=== PATIENT | female | born 1950 | race Caucasian/White ===

== ENCOUNTER → 2018-08-07 11:02 | Outpatient (CLI) | payer MEDICARE, SELFPAY ==
--- NOTE | 2018-08-07 11:12 | MRI_ITS ---
STUDY: MRI BRAIN WITH AND WITHOUT CONTRAST (ATTENTION INTERNAL AUDITORY CANALS - I.A.C.'s) REASON FOR EXAM: Female, 68 years old. Left ear hearing loss TECHNIQUE: Standardized multiplanar fat and water weighted pulse sequences were obtained. 17 ml of Dotarem contrast material was administered intravenously for the contrast portion of the examination. COMPARISON: None. FINDINGS: Normal bilateral temporal bones. Normal bilateral internal auditory canals. There is no demonstrated intracanalicular or cisternal vestibular schwannoma (acoustic neuroma). There is no enhancement of the bilateral VIIth or VIIIth cranial nerves. Normal bilateral cochlea, vestibules and semicircular canals. Normal size of the ventricles and extra-axial spaces for the patient's age. Mild periventricular white matter ischemic changes without evidence for acute infarct. Mild chronic ischemic changes within the yanick. Normal bilateral basal ganglia. Normal thalami. Normal flow voids within the major intracranial circulation suggesting patency by spin echo criteria. Normal venous enhancement. There is no enhancing intra-axial or extra-axial abnormality. There is no extra-axial fluid accumulation. Partial empty sella deformity. Normal, infundibular stalk, optic chiasm and hypothalamus. Normal tectal plate and pineal gland. Normal midbrain, and medulla. Normal cerebellum. Normal basal cisterns. No demonstrated orbital abnormality, within the constraints of a routine brain study. Normal visualized paranasal sinuses. Normal calvarium and skull base. Normal visualized soft tissue structures. Normal visualized upper cervical spine. MRI/Brain W/WO Contrast IMPRESSION: Mild periventricular white matter ischemic changes and chronic ischemic changes within the yanick without evidence for acute infarct. No evidence for acoustic or vestibular schwannoma Electronically Signed: Jonathan De Luna MD at 16:56 EDT , Service support ,
[2018-08-07 11:35] LABS: CREATININE FINGERSTICK < 0.6 mg/dL (0.55-1.02); EGFR FINGERSTICK > 60.0000 mL/min (>60)
== END ==
PROVIDERS: Referring Provider Otolaryngology; Visit Provider Otolaryngology
DX: H91.92 Unspecified hearing loss, left ear (principal)
CPT/HCPCS: 70553

== ENCOUNTER 2018-10-27 17:41 | Emergency (ER) | payer MEDICARE, SELFPAY ==
[2018-10-27 17:43] VITALS: BP 152/103; PULSE 117; RESP 18; TEMP 36.1; O2SAT 96; BMI 33.5
--- NOTE | 2018-10-27 18:53 | CT_ITS ---
STUDY: CTA CHEST REASON FOR EXAM: Female, 68 years old. Shortness of breath x2 weeks RADIATION DOSAGE (If Supplied By Facility): CTDIvol = ( 13.76 ) mGy, DLP = ( 499.99 ) mGycm TECHNIQUE: The examination was performed with the intravenous administration of 100ML ml of Isovue 370 contrast material. Post-processing of the angiographic images was performed, with multiplanar reformation and 3D reconstruction. Individualized dose optimization techniques were used for this CT. COMPARISON: December 31, 2016 FINDINGS: Normal enhancement of the main pulmonary artery and right and left pulmonary arteries. Normal enhancement of the bilateral peripheral pulmonary arteries. There is no demonstrated pulmonary embolism. Normal thoracic aorta and visualized great vessels. There is no demonstrated aortic dissection. Normal heart and pericardium. Cardiomegaly and calcific coronary artery disease. Normal mediastinum. Normal hilar regions. Normal visualized trachea and bronchi. The lungs are well expanded. Normal pulmonary parenchyma. Small bilateral pleural effusions. Bibasilar subsegmental atelectasis. Normal chest wall structures. Normal osseous structures. Normal visualized upper abdomen. CT/CTA Chest W/WO Contrast IMPRESSION: Small bilateral pleural effusions. Recommend follow-up to resolution. Electronically Signed: Coleman Hart MD at 20:31 EST , Service support ,
--- NOTE | 2018-10-27 18:53 | EKG12_ITS ---
Test Reason : SOB Blood Pressure : / mmHG Vent. Rate : 113 BPM Atrial Rate : 113 BPM P-R Int : 128 ms QRS Dur : 080 ms QT Int : 304 ms P-R-T Axes : 066 037 095 degrees QTc Int : 416 ms Sinus tachycardia Possible Left atrial enlargement Nonspecific T wave abnormality Abnormal ECG Confirmed by MAIK MESA, PAPO ([id number]), editor producer BRANDON HAM ([id number]) on 10/30/2018 1:48:37 PM Referred By: LAZARO Confirmed By:PAPO PLEITEZ MD
[2018-10-27 19:29] VITALS: PULSE 113; RESP 22; O2SAT 96
[2018-10-27 19:30] VITALS: O2SAT 96
[2018-10-27 19:30] LABS: Absolute Lymphocyte Count 2.15 X10^3/ul (0.83-4.51); Absolute Neutrophil Count 6.3 X10^3/uL (2.0-7.7); Basophil# 0.05 X10^3/uL; Basophil% 0.5 % (0-1); Eosinophil# 0.14 X10^3/uL; Eosinophils% 1.5 % (0-5); Hematocrit 38.3 % (37-47); Hemoglobin 12.1 g/dl (12.0-15.0); Lymphocyte # 2.15 X10^3/ul (4.0); Lymphocyte % 23.5 % (19-41); Mean Corp Hgb Conc 31.6 g/gl (32-36); Mean Corpuscular Hgb 28.3 pg (27.0-32.0); Mean Corpuscular Volume 89.7 fL (81-99); Mean Platelet Vol. 11.3 fl (6.2-12.0); Monocyte% 5.5 % (0-10); Neutrophil # 6.31 X10^3/uL (2.7-7.7); Neutrophil % 68.9 % (47-70); Platelet Count 283 K/mm3 (150-450); RBC Distribution Width CV 15.1 % (11.6-14.6); RBC Distribution Width SD 48.6 fl (35.1-43.9); Red Blood Count 4.27 M/mm3 (4.2-5.4); White Blood Count 9.2 K/mm3 (4.4-11.0)
[2018-10-27 19:33] LABS: POSITIVE COUNT NO; POSITIVE DIFFERENTIAL NO; POSITIVE MORPHOLOGY NO
[2018-10-27 19:41] LABS: Anion Gap 10 (5-15); BUN 19 mg/dL (7-18); BUN/Creat Ratio 29.5 RATIO (10-20); Calcium,Total 8.9 mg/dL (8.5-10.1); Chloride 111 mmol/L (98-107); Creatinine, Serum 0.64 mg/dL (0.55-1.02); EST Glomerular Filtration Rate 98 mL/min (>60); Est Glom Filt Rate - Afr Amer 119 mL/min (>60); Estimated Creatinine Clearance 43.77 ml/min; Glucose 129 mg/dL (74-106); Potassium 4.2 mmol/L (3.5-5.1); Sodium Level 143 mmol/L (136-145)
[2018-10-27 19:50] LABS: International Normalized Ratio 1.1; Prothrombin Time (Protime)PT. 13.9 SECONDS (11.7-14.9)
[2018-10-27 19:51] LABS: Partial Thromboplast Time 26.9 Seconds (24.1-36.2)
[2018-10-27 20:00] LABS: BNP,B-Type NATRIURETIC PEPTIDE 599.3 pg/mL (0-100)
[2018-10-27 21:00] VITALS: BP 142/81; PULSE 109; RESP 18; O2SAT 95
--- NOTE | 2018-10-27 21:26 | ED.VISSUMM ---
- ER Visit Summary Date of Service: 10/27/18 Chief Complaint: Shortness of breath History of Present Illness: The patient is a 68 F sent in by her PCP for CTA of the chest. Patient has been complaining of shortness of breath for the past 2 weeks. She states she initially noted symptoms after doing some different chores at home including cleaning out horse stalls. Even after changing this work she continued to have shortness of breath. She denies chest pain. She was seen at her PCPs office yesterday where her d-dimer was greater than 1000 and her BNP was 2378. Renal function was normal. Patient was told to come to the ED for a CTA as her insurance required previous authorization. Physical Examination: Blood pressure is 152/103, temperature 97, heart rate 117, respiratory rate 18, pulse ox 96% on room air. Patient sitting at bedside. She is in no acute distress. She is speaking full sentences. Heart is regular rhythm but slightly tachycardic. Lungs sounds are diminished at the bases. There is no wheezing or crackles. Abdomen is soft nontender. Lower extremity examination was no significant calf tenderness or edema. Test Results: EKG is sinus tach at 113 with no sign of acute ischemia. CBC and chemistry studies unremarkable. Coags normal. Troponin is 0.028. BNP is 600. CTA of the chest reveals small bilateral pleural effusions. Emergency Department Course and Treatment: Test results were discussed with Dr. Elizabeth, on-call for the patient's primary care physician. Patient will be given Lasix and potassium for the next 7 days. Patient is already scheduled for an echocardiogram tomorrow morning. Treatment Plan: [] Disposition: Discharge Impression: CHF This note was generated with [employer] dictation software. It may contain incorrect words, spelling, and punctuation that were not noted in review of the chart prior to signing ED Disposition - Plan for ED Patient: Disposition: Home or Assisted Living Chief Complaint: Shortness of Breath Instructions: ED CHF General Prescriptions: Furosemide [Lasix] 40 mg PO DAILY #7 tablet Potassium Chloride 20 meq PO DAILY #7 packet Referrals: Geoff Snyder MD [Primary Care Provider] - Additional Instructions: Follow-up tomorrow for echo as scheduled.
--- NOTE | 2018-10-27 21:31 | DCINST.ED_ITS ---
ED Disposition - Plan for ED Patient: Disposition: Home or Assisted Living Chief Complaint: Shortness of Breath Instructions: ED CHF General Prescriptions: Furosemide [Lasix] 40 mg PO DAILY #7 tablet Potassium Chloride 20 meq PO DAILY #7 packet Referrals: Geoff Snyder MD [Primary Care Provider] - Additional Instructions: Follow-up tomorrow for echo as scheduled.
[2018-10-27] MEDS: Furosemide 40 MG Tablet PO (21:54)
[2018-10-27 21:55] VITALS: BP 139/85; PULSE 101; RESP 22; O2SAT 96
--- OUTSIDE RECORDS SUMMARY | 2019-01-29 06:17 | XMS RPT_ITS ---
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 disease RCA mild proximal disease LVEDP: 29mmHg Impressions: No significant coronary artery disease Recommend: Continue medical management of non-ischemic cardiomyopathy Yanick Connor MD Interventional Cardiology NURSING PROG Observed: 11/18/2018 Status: COMPLETED Source: CADE 7:33 AM [facility] REPOSITORY HNO ID: [id number] Author: Ashley (Rn) RUPERTO Smalls Service: Cardiac Surgery Author Type: Registered Nurse Type: Nursing Progress Note Filed: 11/18/2018 7:34 AM Note Text: [id number] Pt arrived to [facility]. Pre-procedure and medications discussed with pt. PROGRESS Observed: 11/16/2018 Status: COMPLETED Source: CADE 9:34 AM [facility] REPOSITORY HNO ID: [id number] Author: Naty (Weapons Officer) Older Service: (none) Author Type: Nurse Practitioner Type: Progress Notes Filed: 11/16/2018 9:58 AM Note Text: Medicare Yearly Visit Medical B eligibilty date 07/11/17 Date of last exam NA PAST MEDICAL HISTORY Diagnosis Date - Abnormal Papanicolaou smear of vagina and vaginal HPV - BENIGN HYPERTENSION 01/23/2009 - Lumbago with sciatica 04/29/2011 Left - Malignant neoplasm of corpus uteri (HCC) 03/03/2015 - Malignant neoplasm of corpus uteri, except isthmus (HCC) 03/21/2015 - Osteoarthritis of hip 06/30/2014 Left. - PMH - PAST MEDICAL HISTORY OF 11/2008 calcifications in the right breast - PMH - PAST MEDICAL HISTORY OF bowel problems due to artificial sweeteners - S/P laparoscopic hysterectomy 04/10/2015 ENEDINA, BSO, pelvic lymphadenectomy - Snoring - Synovial cyst of lumbar facet joint 04/29/2011 Left - Type II or unspecified type diabetes mellitus without mention of complication, not stated as uncontrolled 03/01/2009 - Umbilical hernia without obstruction or gangrene 01/13/2018 PAST SURGICAL HISTORY Procedure Laterality Date - COLONOSCOP W/ OR W/O [facility] SPEC January 1998 Colonoscopy - COLONOSCOP W/ OR W/O [facility] SPEC Colonoscopy - LAMINECTOMY,>2 SGMT,LUMBAR - LAP HYSTERECTOMY FOR UTERUS 250G OR LESS 04/10/2015 bilateral salpingo-oophorectomy, cystoscopy, bilateral pelvic lymphadenectomy. - PAST SURGICAL HISTORY OF 2001 Right breast biopsy - REMOVAL GALLBLADDER Cholecystectomy, laparoscopic - STEREO LOC FOR CORE BRST BX LT 2 LEFT Black Cohash [Other]; Codeine; Percodan [Oxycodone-Aspirin] Medications reviewed: Yes FAMILY HISTORY Problem Relation Age of Onset - Cancer Father lung, - Diabetes Father - Diabetes Sister - Diabetes Paternal Grandfather - Emphysema Father - Arthritis Mother - Osteoporosis Mother - Hypertension Mother - Hypertension Sister - Lipids Sister SOCIAL HISTORY: Social History Marital status: Single Spouse name: Years of education: 16 Number of children: 2 Occupational History Occupation Employer Comment [employer] Social History Main Topics Smoking status: Former Smoker Packs/day: 1.00 Years: 20.00 Types: Cigarettes Quit date: 11/10/1977 Smokeless tobacco: Never Used Alcohol use: Yes Comment: rare Drug use: No Sexual activity: Not Currently control/protection: None Comment: postmenopausal Sheila denies regular aerobic exercise but is very active. She watches her diet for sodium, low fat and low cholesterol all of the time. List of current specialists seen: Senior Research Executive-Dr. Naik End of Live Planning discussed including patients advanced directive wishes: Yes I am willing to follow Sheila's advanced directives. Depression screen She in the past two weeks denies having felt down, depressed, hopeless or with little interest or pleasure in doing things. Functional Ability/Safety Screen 1. Was the patient's timed Up and Go test unsteady or longer than 30 seconds? No 2. Does the patient need help with the phone, transportation, shopping,preparing meals, housework, laundry, medications or managing money? No 3. Does your home have rugs in the hallway, lack of grab bars in the bathroom, lack of handrails on the stairs or have poor lighting? No Hearing Evaluation: hearing loss left ear, right ear normal PHYSICAL EXAM BP 120/78 Pulse 83 Temp 36.1 ?C (97 ?F) (Temporal Artery) Wt 77.6 kg (171 lb) SpO2 97% BMI 31.28 kg/m? Alert and oriented X 3: YES Body mass index is 31.28 kg/m?. ASSESSMENT/PLAN: 68 year old female The following prevention plan was discussed during the office visit and provided to the patient: - Discussed health maintenance, including regular aerobic exercise, low fat diet, and periodic exams. - Fall avoidance - Vaccines recommended: Pneumococcal. Will wait until one year from Prevnar 01/2018 - Glaucoma screening 2. Congestive heart failure, unspecified HF chronicity, unspecified heart failure type (HCC) - ICD9: 428.0, ICD10: I50.9 Recently diagnosed with CHF, cardiomyopathy of unknown etiology. Autoimmune ruled out. Waiting on viral panel. Heart cath scheduled for 11/18/18. - CARVEDILOL 3.125 MG TABLET 3. Cardiomyopathy, unspecified type (HCC) - ICD9: 425.4, ICD10: I42.9 - CARVEDILOL 3.125 MG TABLET Naty Calvin APRN.CNP CNOV Observed: 11/16/2018 Status: COMPLETED Source: CADE 9:20 AM [facility] REPOSITORY Office Visit (INTMWS) SHEILA GUTIERREZ ([id number]) 1950 F Date Time Provider Department 11/16/18 9:20 AM NATY CALVIN (BAM) INTMWS During your visit today, we recorded the following information about you: Temperature Pulse Blood pressure Weight 97 degrees 83/minute 120/78 77.6 kg Naty Calvin APRN.CNP 11/16/2018 9:58 AM Signed Medicare Yearly Visit Medical B eligibilty date 07/11/17 Date of last exam NA PAST MEDICAL HISTORY Diagnosis Date - Abnormal Papanicolaou smear of vagina and vaginal HPV - BENIGN HYPERTENSION 01/23/2009 - Lumbago with sciatica 04/29/2011 Left - Malignant neoplasm of corpus uteri (HCC) 03/03/2015 - Malignant neoplasm of corpus uteri, except isthmus (HCC) 03/21/2015 - Osteoarthritis of hip 06/30/2014 Left. - PMH - PAST MEDICAL HISTORY OF 11/2008 calcifications in the right breast - PMH - PAST MEDICAL HISTORY OF bowel problems due to artificial sweeteners - S/P laparoscopic hysterectomy 04/10/2015 ENEDINA, BSO, pelvic lymphadenectomy - Snoring - Synovial cyst of lumbar facet joint 04/29/2011 Left - Type II or unspecified type diabetes mellitus without mention of complication, not stated as uncontrolled 03/01/2009 - Umbilical hernia without obstruction or gangrene 01/13/2018 PAST SURGICAL HISTORY Procedure Laterality Date - COLONOSCOP W/ OR W/O [facility] SPEC January 1998 Colonoscopy - COLONOSCOP W/ OR W/O [facility] SPEC Colonoscopy - LAMINECTOMY,>2 SGMT,LUMBAR - LAP HYSTERECTOMY FOR UTERUS 250G OR LESS 04/10/2015 bilateral salpingo-oophorectomy, cystoscopy, bilateral pelvic lymphadenectomy. - PAST SURGICAL HISTORY OF 2001 Right breast biopsy - REMOVAL GALLBLADDER Cholecystectomy, laparoscopic - STEREO LOC FOR CORE BRST BX LT 12-27-08 LEFT Black Cohash [Other]; Codeine; Percodan [Oxycodone-Aspirin] Medications reviewed: Yes FAMILY HISTORY Problem Relation Age of Onset - Cancer Father lung, - Diabetes Father - Diabetes Sister - Diabetes Paternal Grandfather - Emphysema Father - Arthritis Mother - Osteoporosis Mother - Hypertension Mother - Hypertension Sister - Lipids Sister SOCIAL HISTORY: Social History Marital status: Single Spouse name: Years of education: 16 Number of children: 2 Occupational History Occupation Employer Comment [employer] Social History Main Topics Smoking status: Former Smoker Packs/day: 1.00 Years: 20.00 Types: Cigarettes Quit date: 11/10/1977 Smokeless tobacco: Never Used Alcohol use: Yes Comment: rare Drug use: No Sexual activity: Not Currently control/protection: None Comment: postmenopausal Sheila denies regular aerobic exercise but is very active. She watches her diet for sodium, low fat and low cholesterol all of the time. List of current specialists seen: Senior Research Executive-Dr. Naik End of Live Planning discussed including patients advanced directive wishes: Yes I am willing to follow Sheila's advanced directives. Depression screen She in the past two weeks denies having felt down, depressed, hopeless or with little interest or pleasure in doing things. Functional Ability/Safety Screen 1. Was the patient's timed Up and Go test unsteady or longer than 30 seconds? No 2. Does the patient need help with the phone, transportation, shopping,preparing meals, housework, laundry, medications or managing money? No 3. Does your home have rugs in the hallway, lack of grab bars in the bathroom, lack of handrails on the stairs or have poor lighting? No Hearing Evaluation: hearing loss left ear, right ear normal PHYSICAL EXAM BP 120/78 Pulse 83 Temp 36.1 ?C (97 ?F) (Temporal Artery) Wt 77.6 kg (171 lb) SpO2 97% BMI 31.28 kg/m? Alert and oriented X 3: YES Body mass index is 31.28 kg/m?. ASSESSMENT/PLAN: 68 year old female The following prevention plan was discussed during the office visit and provided to the patient: - Discussed health maintenance, including regular aerobic exercise, low fat diet, and periodic exams. - Fall avoidance - Vaccines recommended: Pneumococcal. Will wait until one year from Prevnar 01/2018 - Glaucoma screening 2. Congestive heart failure, unspecified HF chronicity, unspecified heart failure type (HCC) - ICD9: 428.0, ICD10: I50.9 Recently diagnosed with CHF, cardiomyopathy of unknown etiology. Autoimmune ruled out. Waiting on viral panel. Heart cath scheduled for 11/18/18. - CARVEDILOL 3.125 MG TABLET 3. Cardiomyopathy, unspecified type (HCC) - ICD9: 425.4, ICD10: I42.9 - CARVEDILOL 3.125 MG TABLET Naty Calvin APRN.ENDLESS BELT FINISHER Referring Provider: GEOFF AGURIRE [[id number]] Allergies As of Date: 11/16/2018 Noted Allergy Reaction BLACK AMADO [Other] 02/26/2006 5 - Intolerance Comments: MIGRAINE HEADACHES CODEINE 01/18/2009 PERCODAN (OXYCODONE-ASPIRIN) 01/18/2009 Date Reviewed: 11/16/2018 Reviewed by: Damaris Marte [employer] - Fully Assessed Reason for Visit: Medicare Wellness Exam [4060] Primary Visit Diagnosis:Encounter for Medicare annual wellness exam [Z00.00] Other Visit Diagnoses:Congestive heart failure, unspecified HF chronicity, unspecified heart failure type (HCC) [I50.9] Cardiomyopathy, unspecified type (HCC) [I42.9] Order(s):carvedilol (COREG) 3.125 mg tabletTake 2 tablets by mouth twice daily.Disp: Rfl: Prescriptions as of 11/16/2018 Sig: CARVEDILOL 3.125 MG TABLET Take 2 tablets by mouth twice* SPIRONOLACTONE 25 MG TABLET Take 1 tablet by mouth once d* FUROSEMIDE 40 MG TABLET Take 1 tablet by mouth once d* MAGNESIUM OXIDE 400 MG CAPSULE Take 1 capsule by mouth once * COQ10 SG 100 ORAL Take by mouth. [id number] ORAL Take by mouth. METFORMIN 1,000 MG TABLET Take 1 tablet by mouth twice * LISINOPRIL 5 MG TABLET Take 1 tablet by mouth once d* ATORVASTATIN 10 MG TABLET Take 1 tablet by mouth once d* BLOOD SUGAR DIAGNOSTIC STRIPS Test blood sugar(s) 2 times d* TRAMADOL 50 MG TABLET Take 1 tablet by mouth twice * CYCLOBENZAPRINE 10 MG TABLET Take 1 tablet by mouth twice * GABAPENTIN 300 MG CAPSULE Take 1 capsule by mouth four * BLOOD SUGAR DIAGNOSTIC STRIPS Testing twice daily for uncon* LANCETS Test blood sugar(s) twice emerald* ECOTRIN LOW STRENGTH 81 MG TA* Take one(1) tablet daily. Problem List As Of Date 11/16/2018 Noted Resolved Abnormal mammogram, unspecified [R92.8] INVALID FOR*06/12/2011 BENIGN HYPERTENSION [I10] INVALID FOR* Diabetes mellitus type 2, controlled, without c*INVALID FOR* Lumbago with sciatica [M54.40] INVALID FOR* S/P laminectomy [Z98.890] INVALID FOR* Osteoarthritis of hip [M16.9] INVALID FOR* More... Hyperlipidemia [E78.5] INVALID FOR* Malignant neoplasm of corpus uteri, except isth*INVALID FOR* Umbilical hernia without obstruction or gangren*INVALID FOR* Sensorineural hearing loss (SNHL) of left ear [*INVALID FOR* Cardiomyopathy (HCC) [I42.9] INVALID FOR* Acute systolic congestive heart failure (HCC) [*INVALID FOR* Prescriptions ordered this encounter Disp Refills Start End CARVEDILOL 3.125 MG TABLET 11/16/2018 Class: Med Update Route: ORAL Sig: Take 2 tablets by mouth twice daily. Cosign accepted by NATY CALVIN CNP[[id number]] on 11/16/2018 9:26 AM Medications Discontinued During This Encounter carvedilol (COREG) 3.125 mg tablet 11/01/2018 11/16/2018 Class: Med Update Route: ORAL Sig: Take 1 tablet by mouth twice daily. Disc: Reason for discontinue is not on file. Encounter Status:Closed by NATY CALVIN CNP on 11/16/18 HOSP Observed: 11/13/2018 Status: COMPLETED Source: CADE 12:00 AM [facility] REPOSITORY Patient:Sheila Gutierrez MRN: <[id number]> Height:5' 2(1.575 m) Weight:171 lb (77.565 kg) Outpatient Medications as of 11/18/18: carvedilol (COREG) 3.125 mg tablet spironolactone (ALDACTONE) 25 mg tablet furosemide (LASIX) 40 mg tablet magnesium oxide 400 mg cap ubidecarenone/vitamin E mixed (COQ10 SG 100 ORAL) calcium carbonate/vitamin D2 ([id number] ORAL) metFORMIN (GLUCOPHAGE) 1,000 mg tablet lisinopril (ZESTRIL, PRINIVIL) 5 mg tablet atorvastatin (LIPITOR) 10 mg tablet blood sugar diagnostic (FREESTYLE LITE STRIPS) test strip traMADol (ULTRAM) 50 mg tablet cyclobenzaprine (FLEXERIL) 10 mg tablet gabapentin (NEURONTIN) 300 mg capsule blood sugar diagnostic (BLOOD GLUCOSE TEST) test strip Lancets lancets aspirin(ECOTRIN LOW STRENGTH 81 MG TAB) Admission/Clinic Administered Medications as of 11/18/18: heparin 1,000 Units in D5W 250 mL heparin 3,000 Units in NaCl 0.9% 500 mL irrigation NaCl 0.9% iv infusion Problem List: Essential hypertension, benign [I10] Diabetes mellitus type 2, controlled, without complications (HCC) [E11.9] Lumbago with sciatica [M54.40] S/P laminectomy [Z98.890] Osteoarthritis of hip [M16.9] Hyperlipidemia [E78.5] Malignant neoplasm of corpus uteri, except isthmus (HCC) [C54.9] Umbilical hernia without obstruction or gangrene [K42.9] Sensorineural hearing loss (SNHL) of left ear [H90.5] Cardiomyopathy (HCC) [I42.9] Acute systolic congestive heart failure (HCC) [I50.21] Allergies: BLACK COHASH [Other] Codeine Percodan [Oxycodone-Aspirin] Date Verified: 11/18/18 Lab Values Lab Value Units Date High Low POTA* 4.9 mmol/L 11/12/2018 5.1 3.7 BRYCE* 41.2 % 11/12/2018 46.0 36.0 Progress Notes ([facility]): Giovani Ivy RN 11/16/2018 8:56 AM Signed Pt called, verified by name and birthdate. Pt asked if she could send list of vitals in via my chart. Informed her she could or I could put them in, pt states it will be easier for her to send my chart message so she can attach messages. Giovani Ivy RN Progress Notes ([facility]): Naty Older, BARBERING TEACHER.ENDLESS BELT FINISHER 11/16/2018 9:58 AM Signed Medicare Yearly Visit Medical B eligibilty date 07/11/17 Date of last exam NA PAST MEDICAL HISTORY Diagnosis Date - Abnormal Papanicolaou smear of vagina and vaginal HPV - BENIGN HYPERTENSION 01/23/2009 - Lumbago with sciatica 04/29/2011 Left - Malignant neoplasm of corpus uteri (HCC) 03/03/2015 - Malignant neoplasm of corpus uteri, except isthmus (HCC) 03/21/2015 - Osteoarthritis of hip 06/30/2014 Left. - PMH - PAST MEDICAL HISTORY OF 11/2008 calcifications in the right breast - PMH - PAST MEDICAL HISTORY OF bowel problems due to artificial sweeteners - S/P laparoscopic hysterectomy 04/10/2015 ENEDINA, BSO, pelvic lymphadenectomy - Snoring - Synovial cyst of lumbar facet joint 04/29/2011 Left - Type II or unspecified type diabetes mellitus without mention of complication, not stated as uncontrolled 03/01/2009 - Umbilical hernia without obstruction or gangrene 01/13/2018 PAST SURGICAL HISTORY Procedure Laterality Date - COLONOSCOP W/ OR W/O [facility] SPEC January 1998 Colonoscopy - COLONOSCOP W/ OR W/O [facility] SPEC Colonoscopy - LAMINECTOMY,>2 SGMT,LUMBAR - LAP HYSTERECTOMY FOR UTERUS 250G OR LESS 04/10/2015 bilateral salpingo-oophorectomy, cystoscopy, bilateral pelvic lymphadenectomy. - PAST SURGICAL HISTORY OF 2001 Right breast biopsy - REMOVAL GALLBLADDER Cholecystectomy, laparoscopic - STEREO LOC FOR CORE BRST BX LT 12-27-08 LEFT Black Cohash [Other]; Codeine; Percodan [Oxycodone-Aspirin] Medications reviewed: Yes FAMILY HISTORY Problem Relation Age of Onset - Cancer Father lung, - Diabetes Father - Diabetes Sister - Diabetes Paternal Grandfather - Emphysema Father - Arthritis Mother - Osteoporosis Mother - Hypertension Mother - Hypertension Sister - Lipids Sister SOCIAL HISTORY: Social History Marital status: Single Spouse name: Years of education: 16 Number of children: 2 Occupational History Occupation Employer Comment [employer] Social History Main Topics Smoking status: Former Smoker Packs/day: 1.00 Years: 20.00 Types: Cigarettes Quit date: 11/10/1977 Smokeless tobacco: Never Used Alcohol use: Yes Comment: rare Drug use: No Sexual activity: Not Currently control/protection: None Comment: postmenopausal Sheila denies regular aerobic exercise but is very active. She watches her diet for sodium, low fat and low cholesterol all of the time. List of current specialists seen: Senior Research Executive-Dr. Naik End of Live Planning discussed including patients advanced directive wishes: Yes I am willing to follow Sheila's advanced directives. Depression screen She in the past two weeks denies having felt down, depressed, hopeless or with little interest or pleasure in doing things. Functional Ability/Safety Screen 1. Was the patient's timed Up and Go test unsteady or longer than 30 seconds? No 2. Does the patient need help with the phone, transportation, shopping,preparing meals, housework, laundry, medications or managing money? No 3. Does your home have rugs in the hallway, lack of grab bars in the bathroom, lack of handrails on the stairs or have poor lighting? No Hearing Evaluation: hearing loss left ear, right ear normal PHYSICAL EXAM BP 120/78 Pulse 83 Temp 36.1 ?C (97 ?F) (Temporal Artery) Wt 77.6 kg (171 lb) SpO2 97% BMI 31.28 kg/m? Alert and oriented X 3: YES Body mass index is 31.28 kg/m?. ASSESSMENT/PLAN: 68 year old female The following prevention plan was discussed during the office visit and provided to the patient: - Discussed health maintenance, including regular aerobic exercise, low fat diet, and periodic exams. - Fall avoidance - Vaccines recommended: Pneumococcal. Will wait until one year from Prevnar 01/2018 - Glaucoma screening 2. Congestive heart failure, unspecified HF chronicity, unspecified heart failure type (HCC) - ICD9: 428.0, ICD10: I50.9 Recently diagnosed with CHF, cardiomyopathy of unknown etiology. Autoimmune ruled out. Waiting on viral panel. Heart cath scheduled for 11/18/18. - CARVEDILOL 3.125 MG TABLET 3. Cardiomyopathy, unspecified type (HCC) - ICD9: 425.4, ICD10: I42.9 - CARVEDILOL 3.125 MG TABLET Naty Older, BARBERING TEACHER.ENDLESS BELT FINISHER CBC Collected: 11/12/2018 Status: F Source: CADE 4:17 PM [facility] REPOSITORY TYPE CODE TESTS RESULT OUT OF REFERENCE UNITS RANGE LAB WBC 3.70-11.00 k/uL WBC 9.26 LAB RBC 3.90-5.20 m/uL RBC 4.57 LAB HGB 11.5-15.5 g/dL Hemoglobin 13.0 LAB HCT 36.0-46.0 % Hematocrit 41.2 LAB MCV 80.0-100.0 fL MCV 90.2 LAB MCH 26.0-34.0 pG MCH 28.4 LAB MCHC 30.5-36.0 g/dL MCHC 31.6 LAB RDWCV 11.5-15.0 % RDW-CV 13.7 LAB PLTCT 150-400 k/uL Platelet Count 241 LAB MPV 9.0-12.7 fL MPV 12.6 LAB ABSNUC <0.01 k/uL Absolute nRBC <0.01 Performed By: #### CBC #### [facility] [address] [address] MAGNESIUM Collected: 11/12/2018 Status: F Source: CADE 4:16 PM [facility] REPOSITORY TYPE CODE TESTS RESULT OUT OF REFERENCE UNITS RANGE LAB MG 1.7-2.3 mg/dL Low Magnesium 1.4 BASIC METABOLIC PANL Collected: 11/12/2018 Status: F Source: CADE 4:16 PM [facility] REPOSITORY TYPE CODE TESTS RESULT OUT OF REFERENCE UNITS RANGE LAB GLU 74-99 mg/dL Glucose High 146 LAB BUN 7-21 mg/dL BUN High 27 LAB CRET 0.58-0.96 mg/dL Creatinine 0.83 LAB NA 136-144 mmol/L Sodium 137 LAB K 3.7-5.1 mmol/L Potassium 4.9 LAB CL 97-105 mmol/L Chloride 98 LAB CO2 22-30 mmol/L CO2 28 LAB AGAP mmol/L Anion Gap 11 LAB CA 8.5-10.2 mg/dL Calcium, High Total 10.3 LAB GFRAA eGFR- >60 Amer. LAB GFRNAA . eGFR-All Other Races >60 Result Comment: eGFR (Estimated GFR) Units of measure: mL/min/1.73 meters squared eGFR is derived from the reexpressed MDRD Study equation using the following parameters: serum creatinine, age, gender and race. The creatinine assay has been calibrated to be traceable to IDMS. An eGFR <60 mL/min/1.73m2 for >3 months is consistent with chronic kidney disease. Refer to KDOQI guidelines for clinical interpretation. In patients with unstable renal function, e.g. those with acute kidney injury, the eGFR may not accurately reflect actual GFR. PROTIME Collected: 11/12/2018 Status: F Source: CADE 4:16 PM [facility] REPOSITORY TYPE CODE TESTS RESULT OUT OF RANGE REFERENCE UNITS LAB PSEC 9.7-13.0 sec PT Sec 10.6 LAB INR 0.9-1.3 PT INR 1.0 Result Comment: Vitamin K Antagonist (VKA) Therapeutic Range: INR 2 to 3 (Target INR of 2.5) Note: For patients treated with VKA drugs, such as warfarin, the [place] [employer] 2012 Guideline recommends a therapeutic INR range of 2 to 3 (target INR of 2.5). This recommendation includes high-risk patients with antiphospholipid syndrome with previous arterial or venous thromboembolism, current-generation mechanical or bioprosthetic aortic heart valve replacement. Note: Patients with mechanical aortic valve replacement and additional risk factors for thromboembolic events (atrial fibrillation, previous thromboembolism, LV dysfunction, hypercoagulable conditions) or an older generation mechanical AVR (i.e., ball in-Cage) or any mechanical MVR should have a INR therapeutic range of 2.5 to 3.5 (target INR of 3). Benjy GH, et al. Chest 2012, 141:7S-47S Todd RA, et al. JAC 2017, 70: 252-289 Performed By: #### PT, ANAIFS #### [facility] [address] [place], [place] [address] #### COXBAB #### [facility] [address] [place] [address] [phone] JUDI BY IFA Collected: 11/12/2018 Status: F Source: CADE 4:16 PM [facility] REPOSITORY TYPE CODE TESTS RESULT OUT OF REFERENCE UNITS RANGE LAB ANASC Negative JUDI Negative Result Comment: Normal range : negative at <1:80 serum dilution. Approximately 6% of patients with connective tissue diseases with low positive EIA values are negative by IFA. Recommend follow-up with specific antinuclear antibodies if clinically indicated. LAB MILADY Negative Negative JUDI Titer Result Comment: Normal range : negative at <1:80 serum dilution. LAB ANAP JUDI Not applicable Pattern for negative result. Performed By: #### PT, ANAIFS #### [facility] [address] [address] #### COXBAB #### [address] [address] [phone] COXSACKIE B VIRAL AB Collected: 11/12/2018 Status: F Source: CADE 4:16 PM [facility] REPOSITORY TYPE CODE TESTS RESULT OUT OF RANGE REFERENCE UNITS LAB COXB1 <1:10 Coxsackie B 1:10 Type 1 LAB COXB2 <1:10 Coxsackie B <1:10 Type 2 LAB COXB3 <1:10 Cox[place]ackie B <1:10 Type 3 LAB COXB4 <1:10 High Coxsackie B >=1:640 Type 4 LAB COXB5 <1:10 Abnormal Alert Coxsackie B 1:320 Type 5 LAB COXB6 <1:10 Coxsackie B <1:10 Type 6 Result Comment: (NOTE) INTERPRETIVE INFORMATION: Coxsackie B Virus Single positive antibody titers of greater than or equal to 1:80 may indicate past or current infection. Sero- conversion or an increase in titers between acute and convalescent sera of at least fourfold is considered strong evidence of current or recent infection. Performed by [facility], [address] [place] [id number] [email or web address], Jayden Feliz MD, Lab. Director Performed By: #### PT, ANAIFS #### [facility] [address], [place] [address] #### COXBAB #### [employer] [address] [address] [id number] [phone] IRON AND TIBC Collected: 11/12/2018 Status: F Source: CADE 4:16 PM [facility] REPOSITORY TYPE CODE TESTS RESULT OUT OF REFERENCE UNITS RANGE LAB IRN 41-186 ug/dL Iron 57 LAB TIBC 232-386 ug/dL TIBC High 407 LAB SAT 15-57 % Low Transferrin Saturatn 14 Performed By: #### IRON #### [facility] [address] [place], [place] [address] PROGRESS Observed: 11/12/2018 Status: COMPLETED Source: CADE 3:53 PM [facility] REPOSITORY HNO ID: [id number] Author: Eladio Naik Service: (none) Author Type: Physician Type: Progress Notes Filed: 11/15/2018 1:50 PM Note Text: PERTINENT CARDIAC HISTORY Cardiomyopathy HL HTN ADHERENCE TO GUIDELINES ANTHONY-I or ARB for HF with prior LVEF<40 (NQF 0081) - met ASA or Plavix for ASHD (NQF 0067) - N/A Beta cassy for ASHD with prior NM or prior LVEF<40 (NQF 0070) - N/A Beta cassy for HF with prior LVEF<40 (NQF 0083) - met ANTHONY-I or ARB for ASHD with DM or prior LVEF<40 (NQF 0066) - met Statin therapy for ASHD or FHL or DM - met BMI documented and plan if >25 (NQF 0421) - lifestyle recommendation form Tobacco use screening and referral (NQF 0028) - lifestyle recommendation form Recommendation for whole food, plant based diet - lifestyle recommendation form CLINICAL IMPRESSION/PLAN: Sheila Gutierrez has a cardiomyopathy of uncertain etiology and duration. It is likely post viral and related to an event within the last several months. She is on small dose of carvedilol and ANTHONY inhibitor. Up titration would be helpful. We will check basic profile to see if there is any evidence of prerenal azotemia. Aldactone can be added. I recommend angiography to evaluate for underlying ischemic heart disease, which would be potentially treatable. She will also have JUDI, iron/TIBC and coxsackie viral titers to attempt to identify an etiology. After optimization of volume, I recommend pushing her beta cassy to tolerance. She will begin making that change attendant the weekend and I've asked her to contact me in the next several days with an update. Should there be no improvement in LV function after aggressive therapy for a few months, she may be a candidate for ICD for primary prophylaxis. I will see her following her evaluation. Thank you for asking me to see and make recommendations on Sheila Gutierrez. This report is available to you in the shared medical record. Written and verbal health teaching given to patient, patient verbalizes understanding and agrees with treatment plan. DIAGNOSIS FOR VISIT: Cardiomyopathy, likely nonischemic Hypertension HISTORY OF PRESENT ILLNESS Sheila Gutierrez is a 68-year-old woman without previous cardiac history, who is seen in consultation at the request of Dr. Aguirre. She's also been recently evaluated by [facility], but desires follow up in [facility]. She recently presented with decompensated systolic LV dysfunction. She noted while cleaning a barn that she was much more short of breath than usual. She developed tachypnea and elevated heart rate. She noted postural dyspnea. She's had minimal edema. She was placed on diuretics and low-dose beta cassy. She has been on chronic ANTHONY inhibitor. She lost about 13 pounds of fluid since initiating Lasix. She reports that her breathing has returned to baseline, but she notes a significant decrease in exercise tolerance. There is no previous history of cardiomyopathy. She had a sudden loss of auditory acuity several months ago, which was attributed to a viral event. She underwent brain imaging and there was no evidence of stroke. She had previous radiation therapy for uterine cancer but no known cardiotoxic chemotherapy. She's had no comfort. She denies TIAs, amaurosis, claudication, palpitations, syncope or near syncope. Risk factors for coronary disease include diabetes and hypertension. She has been very active, doing a lot of physical labor. 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 ALLERGIES: ALLERGIES Allergen Reactions - Black Cohash [Other] Intolerance MIGRAINE HEADACHES - Codeine - Percodan [Oxycodone* CURRENT OUTPATIENT MEDICATIONS: ubidecarenone/vitamin E mixed (COQ10 SG 100 ORAL) Take by mouth. calcium carbonate/vitamin D2 ([id number]-758-V ORAL) Take by mouth. furosemide (LASIX) 40 mg tablet Take 1 tablet by mouth twice daily. carvedilol (COREG) 3.125 mg tablet Take 1 tablet by mouth twice daily. potassium chloride ER (K-DUR, KLOR-CON) 20 mEq tablet Take 1 tablet by mouth once daily. lisinopril (ZESTRIL, PRINIVIL) 5 mg tablet Take 1 tablet by mouth once daily. atorvastatin (LIPITOR) 10 mg tablet Take 1 tablet by mouth once daily. blood sugar diagnostic (FREESTYLE LITE STRIPS) test strip Test blood sugar(s) 2 times daily. Dx: Type 2 DM - Controlled E11.9 Insulin: No traMADol (ULTRAM) 50 mg tablet Take 1 tablet by mouth twice daily as needed for Pain. Dr. Raines gabapentin (NEURONTIN) 300 mg capsule Take 1 capsule by mouth four times daily. blood sugar diagnostic (BLOOD GLUCOSE TEST) test strip Testing twice daily for uncontrolled blood sugars 250.00 non insulin dependent.Use as instructed Lancets lancets Test blood sugar(s) twice times daily. Dx: 250.00. Insulin: No aspirin(ECOTRIN LOW STRENGTH 81 MG TAB) Take one(1) tablet daily. metFORMIN (GLUCOPHAGE) 1,000 mg tablet Take 1 tablet by mouth twice daily with meals. cyclobenzaprine (FLEXERIL) 10 mg tablet Take 1 tablet by mouth twice daily as needed for Muscle Spasm. Dr. Raines PAST MEDICAL HISTORY Diagnosis Date - Abnormal Papanicolaou smear of vagina and vaginal HPV - BENIGN HYPERTENSION 01/23/2009 - Lumbago with sciatica 04/29/2011 Left - Malignant neoplasm of corpus uteri (HCC) 03/03/2015 - Malignant neoplasm of corpus uteri, except isthmus (HCC) 03/21/2015 - Osteoarthritis of hip 06/30/2014 Left. - PMH - PAST MEDICAL HISTORY OF 11/2008 calcifications in the right breast - PMH - PAST MEDICAL HISTORY OF bowel problems due to artificial sweeteners - S/P laparoscopic hysterectomy 04/10/2015 ENEDINA, BSO, pelvic lymphadenectomy - Snoring - Synovial cyst of lumbar facet joint 04/29/2011 Left - Type II or unspecified type diabetes mellitus without mention of complication, not stated as uncontrolled 03/01/2009 - Umbilical hernia without obstruction or gangrene 01/13/2018 PAST SURGICAL HISTORY Procedure Laterality Date - COLONOSCOP W/ OR W/O [facility] SPEC January 1998 Colonoscopy - COLONOSCOP W/ OR W/O [facility] SPEC Colonoscopy - LAMINECTOMY,>2 SGMT,LUMBAR - LAP HYSTERECTOMY FOR UTERUS 250G OR LESS 04/10/2015 bilateral salpingo-oophorectomy, cystoscopy, bilateral pelvic lymphadenectomy. - PAST SURGICAL HISTORY OF 2001 Right breast biopsy - REMOVAL GALLBLADDER Cholecystectomy, laparoscopic - STEREO LOC FOR CORE BRST BX LT 12-27-08 LEFT FAMILY HISTORY Problem Relation Age of Onset - Cancer Father lung, - Diabetes Father - Diabetes Sister - Diabetes Paternal Grandfather - Emphysema Father - Arthritis Mother - Osteoporosis Mother - Hypertension Mother - Hypertension Sister - Lipids Sister Social History Marital status: Single Spouse name: Years of education: 16 Number of children: 2 Occupational History Occupation Employer Comment [employer] Social History Main Topics Smoking status: Former Smoker Packs/day: 1.00 Years: 20.00 Types: Cigarettes Quit date: 11/10/1977 Smokeless tobacco: Never Used Alcohol use: Yes Comment: rare Drug use: No Sexual activity: Not Currently control/protection: None Comment: postmenopausal REVIEW OF SYSTEMS: General: No chills, fever, weight loss, night sweats. SHEENT: No change in vision or auditory acuity. Respiratory: No productive cough. Cardiac: As noted above. GI: No melena. : No dysuria. Musculoskeletal: No myalgias. Neurologic: No strokes. Psychiatric: No depression. Endocrine: Positive for diabetes. Hematologic: No anemia. PHYSICAL EXAMINATION: S/he is alert and in no distress VITAL SIGNS: BP 109/73 Pulse 96 Ht 5' 2 (1.58m) Wt 173 lb 9.6 oz (78.7kg) BMI 31.74 kg/(m2). SHEENT: Skin is warm and dry. Pupils are round and reactive. Retinal vessels are grossly unremarkable. No xanthelasmas appreciated. Pharynx is benign. There is no oral cyanosis. Neck: supple. No adenopathy or thyroid enlargement. Chest: Clear to auscultation. Trachea is midline. Air entry is equal. There is no chest wall tenderness. Cardiac: Regular rhythm. S1 and S2 are normal. PMI is sustained. There is a soft tricuspid insufficiency murmur. No click is heard. Carotids are brisk without bruits. JVP is less than 10 cm. Abdomen: Soft and nontender. There are no pulsatile masses or bruits. No liver enlargement. Bowel sounds are active. : Deferred. Extremities: No edema. Pulses are intact and symmetrical. No clubbing or cyanosis. No femoral bruits. Neurologic: Grossly normal motor and sensory. S/he is alert and oriented x4. Musculoskeletal: No joint deformities. Recent echocardiogram was personally reviewed. Ejection fraction is 15-20%. MRI of the brain stem showed no mass lesions or evidence of stroke. Recent chest CTA showed no evidence of pulmonary embolism. There were small bilateral effusions. Troponin was fairly detected. EKG shows sinus rhythm with minor diffuse repolarization changes, which are new. Recent labs were reviewed. Renal function is normal. Electronically Signed: Eladio Naik MD November 12, 2018 3:53 PM CC: MD ROSAURA KennedyOV Observed: 11/12/2018 Status: COMPLETED Source: CADE 2:45 PM [facility] REPOSITORY Office Visit (CAWSTR) SHEILA GUTIERREZ ([id number]) 1950 F Date Time Provider Department 11/12/18 2:45 PM ELADIO NAIK CAWSTR During your visit today, we recorded the following information about you: Pulse Blood pressure Weight Height 96/minute 109/73 78.7 kg 1.575 m Eladio Naik MD 11/15/2018 1:50 PM Signed PERTINENT CARDIAC HISTORY Cardiomyopathy HL HTN ADHERENCE TO GUIDELINES ANTHONY-I or ARB for HF with prior LVEF<40 (NQF 0081) - met ASA or Plavix for ASHD (NQF 0067) - N/A Beta cassy for ASHD with prior NM or prior LVEF<40 (NQF 0070) - N/A Beta cassy for HF with prior LVEF<40 (NQF 0083) - met ANTHONY-I or ARB for ASHD with DM or prior LVEF<40 (NQF 0066) - met Statin therapy for ASHD or FHL or DM - met BMI documented and plan if >25 (NQF 0421) - lifestyle recommendation form Tobacco use screening and referral (NQF 0028) - lifestyle recommendation form Recommendation for whole food, plant based diet - lifestyle recommendation form CLINICAL IMPRESSION/PLAN: Sheila Gutierrez has a cardiomyopathy of uncertain etiology and duration. It is likely post viral and related to an event within the last several months. She is on small dose of carvedilol and ANTHONY inhibitor. Up titration would be helpful. We will check basic profile to see if there is any evidence of prerenal azotemia. Aldactone can be added. I recommend angiography to evaluate for underlying ischemic heart disease, which would be potentially treatable. She will also have JUDI, iron/TIBC and coxsackie viral titers to attempt to identify an etiology. After optimization of volume, I recommend pushing her beta cassy to tolerance. She will begin making that change attendant the weekend and I've asked her to contact me in the next several days with an update. Should there be no improvement in LV function after aggressive therapy for a few months, she may be a candidate for ICD for primary prophylaxis. I will see her following her evaluation. Thank you for asking me to see and make recommendations on Sheila Gutierrez. This report is available to you in the shared medical record. Written and verbal health teaching given to patient, patient verbalizes understanding and agrees with treatment plan. DIAGNOSIS FOR VISIT: Cardiomyopathy, likely nonischemic Hypertension HISTORY OF PRESENT ILLNESS Sheila Gutierrez is a 68-year-old woman without previous cardiac history, who is seen in consultation at the request of Dr. Aguirre. She's also been recently evaluated by [facility], but desires follow up in [facility]. She recently presented with decompensated systolic LV dysfunction. She noted while cleaning a barn that she was much more short of breath than usual. She developed tachypnea and elevated heart rate. She noted postural dyspnea. She's had minimal edema. She was placed on diuretics and low-dose beta cassy. She has been on chronic ANTHONY inhibitor. She lost about 13 pounds of fluid since initiating Lasix. She reports that her breathing has returned to baseline, but she notes a significant decrease in exercise tolerance. There is no previous history of cardiomyopathy. She had a sudden loss of auditory acuity several months ago, which was attributed to a viral event. She underwent brain imaging and there was no evidence of stroke. She had previous radiation therapy for uterine cancer but no known cardiotoxic chemotherapy. She's had no comfort. She denies TIAs, amaurosis, claudication, palpitations, syncope or near syncope. Risk factors for coronary disease include diabetes and hypertension. She has been very active, doing a lot of physical labor. 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 ALLERGIES: ALLERGIES Allergen Reactions - Black Cohash [Other] Intolerance MIGRAINE HEADACHES - Codeine - Percodan [Oxycodone* CURRENT OUTPATIENT MEDICATIONS: ubidecarenone/vitamin E mixed (COQ10 SG 100 ORAL) Take by mouth. calcium carbonate/vitamin D2 ([id number]-389-Q ORAL) Take by mouth. furosemide (LASIX) 40 mg tablet Take 1 tablet by mouth twice daily. carvedilol (COREG) 3.125 mg tablet Take 1 tablet by mouth twice daily. potassium chloride ER (K-DUR, KLOR-CON) 20 mEq tablet Take 1 tablet by mouth once daily. lisinopril (ZESTRIL, PRINIVIL) 5 mg tablet Take 1 tablet by mouth once daily. atorvastatin (LIPITOR) 10 mg tablet Take 1 tablet by mouth once daily. blood sugar diagnostic (FREESTYLE LITE STRIPS) test strip Test blood sugar(s) 2 times daily. Dx: Type 2 DM - Controlled E11.9 Insulin: No traMADol (ULTRAM) 50 mg tablet Take 1 tablet by mouth twice daily as needed for Pain. Dr. Raines gabapentin (NEURONTIN) 300 mg capsule Take 1 capsule by mouth four times daily. blood sugar diagnostic (BLOOD GLUCOSE TEST) test strip Testing twice daily for uncontrolled blood sugars 250.00 non insulin dependent.Use as instructed Lancets lancets Test blood sugar(s) twice times daily. Dx: 250.00. Insulin: No aspirin(ECOTRIN LOW STRENGTH 81 MG TAB) Take one(1) tablet daily. metFORMIN (GLUCOPHAGE) 1,000 mg tablet Take 1 tablet by mouth twice daily with meals. cyclobenzaprine (FLEXERIL) 10 mg tablet Take 1 tablet by mouth twice daily as needed for Muscle Spasm. Dr. Raines PAST MEDICAL HISTORY Diagnosis Date - Abnormal Papanicolaou smear of vagina and vaginal HPV - BENIGN HYPERTENSION 01/23/2009 - Lumbago with sciatica 04/29/2011 Left - Malignant neoplasm of corpus uteri (HCC) 03/03/2015 - Malignant neoplasm of corpus uteri, except isthmus (HCC) 03/21/2015 - Osteoarthritis of hip 06/30/2014 Left. - PMH - PAST MEDICAL HISTORY OF 11/2008 calcifications in the right breast - PMH - PAST MEDICAL HISTORY OF bowel problems due to artificial sweeteners - S/P laparoscopic hysterectomy 04/10/2015 ENEDINA, BSO, pelvic lymphadenectomy - Snoring - Synovial cyst of lumbar facet joint 04/29/2011 Left - Type II or unspecified type diabetes mellitus without mention of complication, not stated as uncontrolled 03/01/2009 - Umbilical hernia without obstruction or gangrene 01/13/2018 PAST SURGICAL HISTORY Procedure Laterality Date - COLONOSCOP W/ OR W/O [facility] SPEC January 1998 Colonoscopy - COLONOSCOP W/ OR W/O [facility] SPEC Colonoscopy - LAMINECTOMY,>2 SGMT,LUMBAR - LAP HYSTERECTOMY FOR UTERUS 250G OR LESS 04/10/2015 bilateral salpingo-oophorectomy, cystoscopy, bilateral pelvic lymphadenectomy. - PAST SURGICAL HISTORY OF 2001 Right breast biopsy - REMOVAL GALLBLADDER Cholecystectomy, laparoscopic - STEREO LOC FOR CORE BRST BX LT 12-27-08 LEFT FAMILY HISTORY Problem Relation Age of Onset - Cancer Father lung, - Diabetes Father - Diabetes Sister - Diabetes Paternal Grandfather - Emphysema Father - Arthritis Mother - Osteoporosis Mother - Hypertension Mother - Hypertension Sister - Lipids Sister Social History Marital status: Single Spouse name: Years of education: 16 Number of children: 2 Occupational History Occupation Employer Comment [employer] Social History Main Topics Smoking status: Former Smoker Packs/day: 1.00 Years: 20.00 Types: Cigarettes Quit date: 11/10/1977 Smokeless tobacco: Never Used Alcohol use: Yes Comment: rare Drug use: No Sexual activity: Not Currently control/protection: None Comment: postmenopausal REVIEW OF SYSTEMS: General: No chills, fever, weight loss, night sweats. SHEENT: No change in vision or auditory acuity. Respiratory: No productive cough. Cardiac: As noted above. GI: No melena. : No dysuria. Musculoskeletal: No myalgias. Neurologic: No strokes. Psychiatric: No depression. Endocrine: Positive for diabetes. Hematologic: No anemia. PHYSICAL EXAMINATION: S/he is alert and in no distress VITAL SIGNS: BP 109/73 Pulse 96 Ht 5' 2 (1.58m) Wt 173 lb 9.6 oz (78.7kg) BMI 31.74 kg/(m2). SHEENT: Skin is warm and dry. Pupils are round and reactive. Retinal vessels are grossly unremarkable. No xanthelasmas appreciated. Pharynx is benign. There is no oral cyanosis. Neck: supple. No adenopathy or thyroid enlargement. Chest: Clear to auscultation. Trachea is midline. Air entry is equal. There is no chest wall tenderness. Cardiac: Regular rhythm. S1 and S2 are normal. PMI is sustained. There is a soft tricuspid insufficiency murmur. No click is heard. Carotids are brisk without bruits. JVP is less than 10 cm. Abdomen: Soft and nontender. There are no pulsatile masses or bruits. No liver enlargement. Bowel sounds are active. : Deferred. Extremities: No edema. Pulses are intact and symmetrical. No clubbing or cyanosis. No femoral bruits. Neurologic: Grossly normal motor and sensory. S/he is alert and oriented x4. Musculoskeletal: No joint deformities. Recent echocardiogram was personally reviewed. Ejection fraction is 15-20%. MRI of the brain stem showed no mass lesions or evidence of stroke. Recent chest CTA showed no evidence of pulmonary embolism. There were small bilateral effusions. Troponin was fairly detected. EKG shows sinus rhythm with minor diffuse repolarization changes, which are new. Recent labs were reviewed. Renal function is normal. Electronically Signed: Eladio Naik MD November 12, 2018 3:53 PM CC: MD Eladio Kennedy MD 11/12/2018 3:53 PM Signed LIFESTYLE CHANGE A healthy lifestyle is the most important component of your overall treatment plan. Please give serious thought to the following areas and commit to making intermediate teacher changes. EAT A WHOLE FOOD, PLANT BASED DIET The nutrition your body gets is more important than the medicine you take. What matters most is the overall way you eat. We encourage you to minimize the use of animal products (which include dairy and all meats except fatty fish) and use whole, unprocessed plant foods to provide your protein, vitamins and other nutrients. We have a lot of information to share with you on this topic. This is not a diet. It is a way of life that you will keep with you. EXERCISE REGULARLY It is not important to spend hours in the gym, lifting weights and perspiring heavily. A total of 2-3 hours per week of aerobic (causing you to be moderately short of breath) exercise is sufficient to improve your health. Talk to us before you begin a new exercise program, if you have heart disease or experience shortness of breath or chest pain. REDUCE STRESS Chronic emotional and physical stress leads to disease. Ways of reducing stress include meditation, visualization, prayer, yoga and other forms of relaxation therapy. Consistency is the deleon. Find a technique that works for you and do it every day. CULTIVATE RELATIONSHIPS Loneliness and isolation have a major negative impact on health. Seek out others who can love, care for and nurture you. Avoid hurtful relationships. MAINTAIN IDEAL BODY WEIGHT The best way to do this is to do all the things above. Our bodies naturally find the right weight if we keep moving and feed ourselves the right food. If your BMI is greater than 25, we strongly recommend a referral to a weight management program. Please speak to us or your family physician about available programs. AVOID NICOTINE IN ALL FORMS This includes all tobacco products, whether chewed, smoked, vaped, or rubbed on the skin. Smoking cessation programs, which can make use of tobacco substitutes, medications to suppress cravings and behavior management, are available. Please contact your family physician about programs in your area. Referring Provider: GEOFF AGUIRRE [[id number]] Allergies As of Date: 11/12/2018 Noted Allergy Reaction BLACK COHASH [Other] 02/26/2006 5 - Intolerance Comments: MIGRAINE HEADACHES CODEINE 01/18/2009 PERCODAN (OXYCODONE-ASPIRIN) 01/18/2009 Date Reviewed: 11/12/2018 Reviewed by: Nancy Damon MA - Fully Assessed Reason for Visit: Establish Care [42] Primary Visit Diagnosis:Cardiomyopathy, nonischemic (HCC) [I42.8] Order(s):CBC [SQCBC] Order #: [id number] FUTURE PROTHROMBIN TIME/PT [SQPT] Order #: [id number] FUTURE BASIC METABOLIC PNL [SQBMP] Order #: [id number] FUTURE MAGNESIUM BLD [SQMG1] Order #: [id number] FUTURE CATH PLMT L HRT AND ARTS W/NJX AND ANGIO IMG MIKE [[id number]] Order #: [id number] [facility] B ANTIBO [SQCOXBAB] Order #: [id number] FUTURE JUDI BY IFA SCREEN [SQANAIFS] Order #: [id number] FUTURE IRON + TIBC [SQIRON] Order #: [id number] FUTURE Prescriptions as of 11/12/2018 Sig: COQ10 SG 100 ORAL Take by mouth. [id number] ORAL Take by mouth. CARVEDILOL 3.125 MG TABLET Take 1 tablet by mouth twice * X FUROSEMIDE 40 MG TABLET Take 1 tablet by mouth twice * X POTASSIUM CHLORIDE ER 20 MEQ * Take 1 tablet by mouth once d* LISINOPRIL 5 MG TABLET Take 1 tablet by mouth once d* ATORVASTATIN 10 MG TABLET Take 1 tablet by mouth once d* BLOOD SUGAR DIAGNOSTIC STRIPS Test blood sugar(s) 2 times d* TRAMADOL 50 MG TABLET Take 1 tablet by mouth twice * GABAPENTIN 300 MG CAPSULE Take 1 capsule by mouth four * BLOOD SUGAR DIAGNOSTIC STRIPS Testing twice daily for uncon* LANCETS Test blood sugar(s) twice emerald* ECOTRIN LOW STRENGTH 81 MG TA* Take one(1) tablet daily. METFORMIN 1,000 MG TABLET Take 1 tablet by mouth twice * Patient not taking: Reported on 11/12/2018 CYCLOBENZAPRINE 10 MG TABLET Take 1 tablet by mouth twice * Problem List As Of Date 11/12/2018 Noted Resolved Abnormal mammogram, unspecified [R92.8] INVALID FOR*06/12/2011 BENIGN HYPERTENSION [I10] INVALID FOR* Diabetes mellitus type 2, controlled, without c*INVALID FOR* Lumbago with sciatica [M54.40] INVALID FOR* S/P laminectomy [Z98.890] INVALID FOR* Osteoarthritis of hip [M16.9] INVALID FOR* More... Hyperlipidemia [E78.5] INVALID FOR* Malignant neoplasm of corpus uteri, except isth*INVALID FOR* Umbilical hernia without obstruction or gangren*INVALID FOR* Sensorineural hearing loss (SNHL) of left ear [*INVALID FOR* Cardiomyopathy (HCC) [I42.9] INVALID FOR* Acute systolic congestive heart failure (HCC) [*INVALID FOR* Other instructions from your clinician: LIFESTYLE CHANGE A healthy lifestyle is the most important component of your overall treatment plan. Please give serious thought to the following areas and commit to making intermediate teacher changes. EAT A WHOLE FOOD, PLANT BASED DIET The nutrition your body gets is more important than the medicine you take. What matters most is the overall way you eat. We encourage you to minimize the use of animal products (which include dairy and all meats except fatty fish) and use whole, unprocessed plant foods to provide your protein, vitamins and other nutrients. We have a lot of information to share with you on this topic. This is not a diet. It is a way of life that you will keep with you. EXERCISE REGULARLY It is not important to spend hours in the gym, lifting weights and perspiring heavily. A total of 2-3 hours per week of aerobic (causing you to be moderately short of breath) exercise is sufficient to improve your health. Talk to us before you begin a new exercise program, if you have heart disease or experience shortness of breath or chest pain. REDUCE STRESS Chronic emotional and physical stress leads to disease. Ways of reducing stress include meditation, visualization, prayer, yoga and other forms of relaxation therapy. Consistency is the deleon. Find a technique that works for you and do it every day. CULTIVATE RELATIONSHIPS Loneliness and isolation have a major negative impact on health. Seek out others who can love, care for and nurture you. Avoid hurtful relationships. MAINTAIN IDEAL BODY WEIGHT The best way to do this is to do all the things above. Our bodies naturally find the right weight if we keep moving and feed ourselves the right food. If your BMI is greater than 25, we strongly recommend a referral to a weight management program. Please speak to us or your family physician about available programs. AVOID NICOTINE IN ALL FORMS This includes all tobacco products, whether chewed, smoked, vaped, or rubbed on the skin. Smoking cessation programs, which can make use of tobacco substitutes, medications to suppress cravings and behavior management, are available. Please contact your family physician about programs in your area. Follow-up and Disposition History Recorded Encounter Status:Closed by ELADIO NAIK MD on 11/15/18 12 LEAD ELECTROCARDIOGRAM Observed: 10/30/2018 Status: F Source: [place] 1:48 PM [facility] [place] Cardiovascular Services [address] [place] [address] 12 Lead EKG 10/27/181911 MR#: [id number] Acct: [id number] Name: SHEILA GTUIERREZ Rep #: [id number] : 1950 68 From: Marbin Peña MD Attending Dr: Status: DEP ER Ordering Dr: Roxann Duffy MD Date: 10/27/18 Location: ED Sex: F C Admitted: Test Reason : SOB Blood Pressure : / mmHG Vent. Rate : 113 BPM Atrial Rate : 113 BPM P-R Int : 128 ms QRS Dur : 080 ms QT Int : 304 ms P-R-T Axes : 066 037 095 degrees QTc Int : 416 ms Sinus tachycardia Possible Left atrial enlargement Nonspecific T wave abnormality Abnormal ECG Confirmed by MARBIN PEÑA MD ([id number]), script editor BRANDON HAM ([id number]) on 10/30/2018 1:48:37 PM Referred By: LAZARO Confirmed By:MARBIN PEÑA MD 10/30/18 1348 Date Marbin Peña MD CC: Roxann Duffy MD; Geoff Aguirre MD Signed CARDIOLOGY VISIT Observed: 10/29/2018 Status: F Source: [place] REPORT 3:14 PM [facility] [facility] [place] [address] OFFICE VISIT Date of Service: 10/29/18 MR#: [id number] Acct: [id number] Name: SHEILA GUTIERREZ Rep #: [id number] : 1950 Provider: Marbin Peña MD Age/Sex: 68/F Location: [facility] [place] Status: Signed HPI HPI Chief Complaint: Initial visit Details: SHEILA GUTIERREZ, is a 68 F who presents to the office today for an initial visit. She is a lady with a history of hypertension who says that over the last few weeks she has been getting progressively short of breath with associated orthopnea paroxysmal nocturnal dyspnea as well as wheezing. She has not had any pedal edema per se. She had presented to the emergency room and was noted to be markedly hypertensive, she was tachycardic a BT PNEUMATIC TUBE FITTER was elevated at over 600 and her troponin was minimally elevated. She had a CTA done which demonstrated small bilateral pleural effusions. She was given Lasix and potassium and had an echocardiogram performed in her primary physician's office today. It demonstrated an ejection fraction of approximately 15%. I do not have the full report available to me. She was started on an ANTHONY inhibitor as well as beta-cassy. She has had no dizziness or diaphoresis no near syncope or syncope. She denies any chest pain. She has not had any previously known cardiac issues. Her physical exam today demonstrates reduced air entry at the bases regular rate and rhythm with an S3 and no pedal edema. Her blood pressure is noted to be normal. Intake Vital Signs10/29/18 Height 5 ft 2 in 10/29/18 Weight: 180 lb 10/29/18 Body Mass Index (BMI) 32.9 10/29/18 Blood Pressure 132/82 H 10/29/18 Blood Pressure Location Lt brachial Intake Visit Reasons: S-CHF [employer] Required: No Accompanied by: none Is patient in pain?: No Allergies codeine Allergy (Verified 10/29/18 14:42) Unknown aspirin [From Percodan] Adverse Reaction (Verified 10/29/18 14:42) Other black cohosh Adverse Reaction (Verified 10/29/18 14:42) Other oxycodone HCl [From Percodan] Adverse Reaction (Verified 10/29/18 14:42) Other oxycodone terephthalate [From Percodan] Adverse Reaction (Verified 10/29/18 14:42) Other Medications Aspirin E.C. [Ecotrin] 1 tab PO DAILY 04/20/15 [History Confirmed 10/29/18] Metformin HCl [Glucophage] 1,000 mg PO BIDCM 04/20/15 [History Confirmed 10/29/18] Atorvastatin Calcium [Lipitor] 10 mg PO QHS 10/27/18 [History Confirmed 10/29/18] Furosemide [Lasix] 40 mg PO DAILY #7 tab 10/27/18 [Rx Confirmed 10/29/18] Lisinopril 5 mg PO DAILY 10/27/18 [History Confirmed 10/29/18] Potassium Chloride 20 meq PO DAILY #7 packet 10/27/18 [Rx Confirmed 10/29/18] cyclobenzaprine 10 mg tablet 10 mg PO BID PRN tab 10/29/18 [History Confirmed 10/29/18] gabapentin 300 mg capsule 300 mg PO Q6H cap 10/29/18 [History Confirmed 10/29/18] meloxicam 15 mg tablet 15 mg PO DAILY PRN 10/29/18 [History Confirmed 10/29/18] metoprolol tartrate 25 mg tablet 12.5 mg PO BID tab 10/29/18 [History Confirmed 10/29/18] tramadol 50 mg tablet 50 mg PO BID PRN 10/29/18 [History Confirmed 10/29/18] [facility] Medical History Cardiomyopathy (Acute) Congestive heart failure (Acute) Hyperlipidemia (Chronic) Type 2 diabetes mellitus without complication (Chronic) Essential hypertension (Chronic) History of osteoarthritis (Chronic) History of umbilical hernia (Chronic) Malignant neoplasm of corpus uteri, except isthmus (Chronic 03/21/15) Sensorineural hearing loss (SNHL) of left ear (Chronic 08/2018) Lumbago with sciatica (Resolved 2010) Surgical History History of laminectomy (Resolved 07/09/11) Social History Smoking Status: Never smoker ROS Const Const: Positive for fatigue and weakness; negative for night sweats, excessive sweating, frequent falls, headache(s) or daytime sleepiness Eyes Eyes: Negative for loss of peripheral vision, transient loss of vision, blind spots, double vision or blurry vision ENT ENT: Positive for dizziness (when laying down); negative for headache(s), balance problems, Nosebleed/epistaxis, tongue swelling or lip swelling Cardio Chest Pain: No Palpitations: No Edema: None Muscle aches with walking: None Resp Respiratory: Positive for SOB at rest and SOB with activity (for approximately 2 weeks); negative for SOB orthopnea\SOB lying down, Cough or paroxysmal nocturnal dyspnea GI GI: Negative nausea, vomiting, heartburn, black,tarry stools or bright, red blood in stools : Negative for hematuria Musc Musc: Negative for balance problems, muscle aches/ myalgia, muscle weakness or joint pain Skin Skin: Negative non-healing lesions, unusual bruising or rash Neuro Neuro: Positive for weakness and dizziness (when laying down); negative for frequent falls, headache(s), double vision, lightheadedness, orthostatic symptoms, blurry vision or lack of coordination Bryce Hematologic/Lymphatic: Negative for easy bruising or easy bleeding Endo Endo: Positive for fatigue; negative for excessive sweating, cold intolerance, heat intolerance, increased thirst/drinking or hair loss Psych Psych: Negative for anxiety or depression Allergy Allergy/Immunology: Negative for throat swelling, Negative for tongue swelling, Negative for hives, Negative for rash, Negative for lip swelling Cardiology Exam Const Appearance: cooperative, healthy appearing, well developed, well groomed and no acute distress Nutritional Appearance: well nourished and average body habitus Orientation: alert, awake and oriented x3 Head Head: normal to inspection, normocephalic and atraumatic Ears: hearing grossly normal bilaterally and external ears normal Nose: external nose normal, nasal mucous membranes and turbinates normal, nares normal, septum normal, no nasal discharge Face and Sinus: face symmetric Mouth: oral mucosae normal, tongue normal, oropharynx normal and moist mucous membranes Teeth and gingiva: dentition normal Throat: posterior oropharynx normal, tonsils normal and uvula midline Eyes General: appearance normal, both eyes and all related structures Eyelids: eyelids normal Conjunctivae: conjunctivae normal Pupils: PERRL, normal by confrontation and accommodation normal EOM: EOM intact bilaterally Neck Neck: normal visual inspection, trachea midline and no JVD JVD: +5 Carotids: normal carotid upstroke and bounding pulses Chest Chest inspection: normal inspection of the chest, symmetric chest movement and normal respiratory effort Auscultation: Bilateral: Clear to Auscultation Cardio Palpation: normal PMI Rate: regular rate Rhythm: regular rhythm Heart sounds: S1 normal, S2 normal and positive S3 Murmur: Grade 1/6 GI GI: normal to inspection, soft, no hepatosplenomegaly and bowel sounds present Neuro General: alert, awake, oriented x3, no focal sensory deficit, gait normal and moves all extremities Skin Skin: no rashes or lesions noted Extremities Pulses: Normal: Right Femoral Pulse, Left Femoral Pulse, Right Dorsalis Pedis Pulse, Left Dorsalis Pedis Pulse, Right Posterior Tibial Pulse, Left Posterior Tibial Pulse, Right Radial Pulse, Left Radial Pulse Lower Extremity Edema: None: Bilateral Musculoskel Musculoskeletal: No joint tenderness Psych Psychological: normal affect Assessment AND Plan 1. Congestive heart failure I50.9 Plan She appears to have acute on chronic systolic heart failure with an estimated ejection fraction of 15%. My recommendation at this time would be to increase her Lasix to 40 mg twice a day, start Coreg 3.125 mg twice a day, continue the lisinopril at the same dose. I have asked her to perform daily weights as well as watch her salt intake. We will carefully titrate her Coreg dose upwards as appropriately. I like to see her again in approximately 2-3 weeks and at that time titrate her Coreg up further and consider performing a cardiac catheterization to exclude obstructive coronary disease as an etiology. 2. Essential hypertension I10 Plan She does have a history of known hypertension which appears to be better at this particular time. She will continue with the ANTHONY inhibitor as well as the carvedilol. 3. Cardiomyopathy I42.9 Plan She appears to have a cardiomyopathy with the etiology not entirely clear the above may likely be hypertensive induced. My recommendation is to continue the same and would like to see her again in 3 weeks. 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) Coding Level of Care Code Off vis,new,level 5 Diagnoses Congestive heart failure I50.9 Essential hypertension I10 Cardiomyopathy I42.9 Coding Level of Care Code Off vis,new,level 5 Diagnoses Congestive heart failure I50.9 Essential hypertension I10 Cardiomyopathy I42.9 10/29/18 1514 <Electronically signed by Marbin Peña MD> Date Marbin Peña MD Cosigner Signature: Date (if applicable) CC: Geoff Aguirre MD CNOV Observed: 10/29/2018 Status: COMPLETED Source: [place] 11:20 AM [facility] REPOSITORY Office Visit (INTMWS) SHEILA GUTIERREZ ([id number]) 1950 F Date Time Provider Department 10/29/18 11:20 AM GEOFF AGUIRRE During your visit today, we recorded the following information about you: Temperature Pulse Respiration Blood pressure 96.6 degrees 110/minute 18/minute 120/78 Weight 82.6 kg Geoff Aguirre MD 10/29/2018 11:05 AM Signed This note was created using [employer]riter. William Gutierrez was here for follow up. She presented with progressing dyspnea on exertion for the past few weeks, with orthopnea, paroxysmal nocturnal dyspnea, and wheezing. Work up revealed elevated d dimer and BNP. She ended up in the ER , diagnosed with congestive heart failure and started on furosemide and potassium. She was not much better. CTA of the chest was negative for PE. Her echo was done today, and EF was 15%. Review of Systems Constitutional: Negative for chills, diaphoresis and fever. Respiratory: Positive for chest tightness, shortness of breath and wheezing. Negative for cough. Cardiovascular: Negative for chest pain, palpitations and leg swelling. Gastrointestinal: Positive for abdominal distention. Negative for abdominal pain, diarrhea, nausea and vomiting. Skin: Negative. Neurological: Negative. ACTIVE PROBLEM LIST Essential Hypertension, Benign Diabetes Mellitus Type 2, Controlled, Without Complications (Hcc) Lumbago With Sciatica S/P Laminectomy Osteoarthritis of Hip Hyperlipidemia Malignant Neoplasm of Corpus Uteri, Except Isthmus (Hcc) Umbilical Hernia Without Obstruction Or Gangrene Sensorineural Hearing Loss (Snhl) of Left Ear Current Outpatient Prescriptions: aspirin(ECOTRIN LOW STRENGTH 81 MG TAB) Take one(1) tablet daily. atorvastatin (LIPITOR) 10 mg tablet Take 1 tablet by mouth once daily. blood sugar diagnostic (BLOOD GLUCOSE TEST) test strip Testing twice daily for uncontrolled blood sugars 250.00 non insulin dependent.Use as instructed blood sugar diagnostic (FREESTYLE LITE STRIPS) test strip Test blood sugar(s) 2 times daily. Dx: Type 2 DM - Controlled E11.9 Insulin: No cyclobenzaprine (FLEXERIL) 10 mg tablet Take 1 tablet by mouth twice daily as needed for Muscle Spasm. Dr. Raines gabapentin (NEURONTIN) 300 mg capsule Take 1 capsule by mouth four times daily. Lancets lancets Test blood sugar(s) twice times daily. Dx: 250.00. Insulin: No lisinopril (ZESTRIL, PRINIVIL) 5 mg tablet Take 1 tablet by mouth once daily. meloxicam (MOBIC) 15 mg tablet Take 1 tablet by mouth once daily as needed (joint pain). metFORMIN (GLUCOPHAGE) 1,000 mg tablet Take 1 tablet by mouth twice daily with meals. perflutren lipid microspheres (DEFINITY) 1.1 mg/mL injection (to be provided with echo procedure) Inject 1.3 mL intravenously as directed. traMADol (ULTRAM) 50 mg tablet Take 1 tablet by mouth twice daily as needed for Pain. Dr. Raines furosemide (LASIX) 40 mg tablet Take 1 tablet by mouth once daily. metoprolol tartrate, short acting, (LOPRESSOR) 25 mg tablet Take 0.5 tablets by mouth twice daily. potassium chloride ER (K-DUR, KLOR-CON) 20 mEq tablet Take 1 tablet by mouth once daily. No current facility-administered medications for this visit. Objective BP 120/78 (BP Site: Right Arm, BP Position: Sitting, BP Cuff Size: Small Adult) Pulse 110 Temp (!) 35.9 ?C (96.6 ?F) (Left Tympanic) Resp 18 Wt 82.6 kg (182 lb) SpO2 97% BMI 33.29 kg/m? Physical Exam Constitutional: No distress. Eyes: Conjunctivae are normal. Neck: No JVD present. Cardiovascular: Regular rhythm, S1 normal and S2 normal. Tachycardia present. Exam reveals no gallop. No murmur heard. Pulmonary/Chest: She has no wheezes. She has rales in the right lower field and the left lower field. Abdominal: Soft. Musculoskeletal: She exhibits no edema. Skin: Skin is warm and dry. She is not diaphoretic. No cyanosis. Assessment and Plan 1. Congestive heart failure, unspecified HF chronicity, unspecified heart failure type (HCC) - ICD9: 428.0, ICD10: I50.9 (primary diagnosis) Discussed findings at length. Urgent cardiology evaluation recommended. She preferred to stay local. I contacted Dr. Peña's office and spoke with Delma. We'll fax information as agreed upon. They will contact Sheila. - Advised low salt diet, no NSAIDs. - FUROSEMIDE 40 MG TABLET - POTASSIUM CHLORIDE ER 20 MEQ TABLET,EXTENDED RELEASE(PART/CRYST) - METOPROLOL TARTRATE 25 MG TABLET - CONSULT TO CARDIOLOGY - BASIC METABOLIC PNL 2. Cardiomyopathy, unspecified type (HCC) - ICD9: 425.4, ICD10: I42.9 - FUROSEMIDE 40 MG TABLET - POTASSIUM CHLORIDE ER 20 MEQ TABLET,EXTENDED RELEASE(PART/CRYST) - METOPROLOL TARTRATE 25 MG TABLET - CONSULT TO CARDIOLOGY - BASIC METABOLIC PNL Geoff Aguirre MD Referring Provider: GEOFF AGUIRRE [[id number]] Allergies As of Date: 10/29/2018 Noted Allergy Reaction BLACK COHASH [Other] 02/26/2006 5 - Intolerance Comments: MIGRAINE HEADACHES CODEINE 01/18/2009 PERCODAN (OXYCODONE-ASPIRIN) 01/18/2009 Date Reviewed: 10/29/2018 Reviewed by: Marianela Floyd LPN - Fully Assessed Reason for Visit: ER F/U [41] Cmt: CT results and SOB Reason For Visit History Recorded Primary Visit Diagnosis:Congestive heart failure, unspecified HF chronicity, unspecified heart failure type (HCC) [I50.9] Other Visit Diagnosis:Cardiomyopathy, unspecified type (HCC) [I42.9] Order(s):furosemide (LASIX) 40 mg tabletTake 1 tablet by mouth once daily.Disp: 30 tabletRfl: 0 potassium chloride ER (K-DUR, KLOR-CON) 20 mEq tabletTake 1 tablet by mouth once daily.Disp: 30 tabletRfl: 0 metoprolol tartrate, short acting, (LOPRESSOR) 25 mg tabletTake 0.5 tablets by mouth twice daily.Disp: 30 tabletRfl: 0 CONSULT TO CARDIOLOGY [9004] Order #: [id number]: 1 BASIC METABOLIC PNL [SQBMP] Order #: [id number] FUTURE Prescriptions as of 10/29/2018 Sig: ECOTRIN LOW STRENGTH 81 MG TA* Take one(1) tablet daily. ATORVASTATIN 10 MG TABLET Take 1 tablet by mouth once d* BLOOD SUGAR DIAGNOSTIC STRIPS Testing twice daily for uncon* BLOOD SUGAR DIAGNOSTIC STRIPS Test blood sugar(s) 2 times d* CYCLOBENZAPRINE 10 MG TABLET Take 1 tablet by mouth twice * GABAPENTIN 300 MG CAPSULE Take 1 capsule by mouth four * LANCETS Test blood sugar(s) twice emerald* LISINOPRIL 5 MG TABLET Take 1 tablet by mouth once d* MELOXICAM 15 MG TABLET Take 1 tablet by mouth once d* METFORMIN 1,000 MG TABLET Take 1 tablet by mouth twice * PERFLUTREN LIPID MICROSPHERES* Inject 1.3 mL intravenously a* TRAMADOL 50 MG TABLET Take 1 tablet by mouth twice * FUROSEMIDE 40 MG TABLET Take 1 tablet by mouth once d* METOPROLOL TARTRATE 25 MG TAB* Take 0.5 tablets by mouth twi* POTASSIUM CHLORIDE ER 20 MEQ * Take 1 tablet by mouth once d* Problem List As Of Date 10/29/2018 Noted Resolved Abnormal mammogram, unspecified [R92.8] INVALID FOR*06/12/2011 BENIGN HYPERTENSION [I10] INVALID FOR* Diabetes mellitus type 2, controlled, without c*INVALID FOR* Lumbago with sciatica [M54.40] INVALID FOR* S/P laminectomy [Z98.890] INVALID FOR* Osteoarthritis of hip [M16.9] INVALID FOR* More... Hyperlipidemia [E78.5] INVALID FOR* Malignant neoplasm of corpus uteri, except isth*INVALID FOR* Umbilical hernia without obstruction or gangren*INVALID FOR* Sensorineural hearing loss (SNHL) of left ear [*INVALID FOR* Prescriptions ordered this encounter Disp Refills Start End FUROSEMIDE 40 MG TABLET 30 t* 0 10/29/2018 Route: ORAL Sig: Take 1 tablet by mouth once daily. POTASSIUM CHLORIDE ER 20 MEQ TABLET,* 30 t* 0 10/29/2018 Route: ORAL Sig: Take 1 tablet by mouth once daily. METOPROLOL TARTRATE 25 MG TABLET 30 t* 0 10/29/2018 Route: ORAL Sig: Take 0.5 tablets by mouth twice daily. Disposition: Return if symptoms worsen or fail to improve. Follow-up and Disposition History Recorded Encounter Status:Closed by GEOFF AGUIRRE MD on 10/29/18 PROGRESS Observed: 10/29/2018 Status: COMPLETED Source: [place] 10:58 AM [facility] REPOSITORY HNO ID: [id number] Author: Geoff Aguirre Service: (none) Author Type: Physician Type: Progress Notes Filed: 10/29/2018 11:05 AM Note Text: This note was created using NoteWriter. Subjective Sheila Gutierrez was here for follow up. She presented with progressing dyspnea on exertion for the past few weeks, with orthopnea, paroxysmal nocturnal dyspnea, and wheezing. Work up revealed elevated d dimer and BNP. She ended up in the ER , diagnosed with congestive heart failure and started on furosemide and potassium. She was not much better. CTA of the chest was negative for PE. Her echo was done today, and EF was 15%. Review of Systems Constitutional: Negative for chills, diaphoresis and fever. Respiratory: Positive for chest tightness, shortness of breath and wheezing. Negative for cough. Cardiovascular: Negative for chest pain, palpitations and leg swelling. Gastrointestinal: Positive for abdominal distention. Negative for abdominal pain, diarrhea, nausea and vomiting. Skin: Negative. Neurological: Negative. ACTIVE PROBLEM LIST Essential Hypertension, Benign Diabetes Mellitus Type 2, Controlled, Without Complications (Hcc) Lumbago With Sciatica S/P Laminectomy Osteoarthritis of Hip Hyperlipidemia Malignant Neoplasm of Corpus Uteri, Except Isthmus (Hcc) Umbilical Hernia Without Obstruction Or Gangrene Sensorineural Hearing Loss (Snhl) of Left Ear Current Outpatient Prescriptions: aspirin(ECOTRIN LOW STRENGTH 81 MG TAB) Take one(1) tablet daily. atorvastatin (LIPITOR) 10 mg tablet Take 1 tablet by mouth once daily. blood sugar diagnostic (BLOOD GLUCOSE TEST) test strip Testing twice daily for uncontrolled blood sugars 250.00 non insulin dependent.Use as instructed blood sugar diagnostic (FREESTYLE LITE STRIPS) test strip Test blood sugar(s) 2 times daily. Dx: Type 2 DM - Controlled E11.9 Insulin: No cyclobenzaprine (FLEXERIL) 10 mg tablet Take 1 tablet by mouth twice daily as needed for Muscle Spasm. Dr. Raines gabapentin (NEURONTIN) 300 mg capsule Take 1 capsule by mouth four times daily. Lancets lancets Test blood sugar(s) twice times daily. Dx: 250.00. Insulin: No lisinopril (ZESTRIL, PRINIVIL) 5 mg tablet Take 1 tablet by mouth once daily. meloxicam (MOBIC) 15 mg tablet Take 1 tablet by mouth once daily as needed (joint pain). metFORMIN (GLUCOPHAGE) 1,000 mg tablet Take 1 tablet by mouth twice daily with meals. perflutren lipid microspheres (DEFINITY) 1.1 mg/mL injection (to be provided with echo procedure) Inject 1.3 mL intravenously as directed. traMADol (ULTRAM) 50 mg tablet Take 1 tablet by mouth twice daily as needed for Pain. Dr. Raines furosemide (LASIX) 40 mg tablet Take 1 tablet by mouth once daily. metoprolol tartrate, short acting, (LOPRESSOR) 25 mg tablet Take 0.5 tablets by mouth twice daily. potassium chloride ER (K-DUR, KLOR-CON) 20 mEq tablet Take 1 tablet by mouth once daily. No current facility-administered medications for this visit. Objective BP 120/78 (BP Site: Right Arm, BP Position: Sitting, BP Cuff Size: Small Adult) Pulse 110 Temp (!) 35.9 ?C (96.6 ?F) (Left Tympanic) Resp 18 Wt 82.6 kg (182 lb) SpO2 97% BMI 33.29 kg/m? Physical Exam Constitutional: No distress. Eyes: Conjunctivae are normal. Neck: No JVD present. Cardiovascular: Regular rhythm, S1 normal and S2 normal. Tachycardia present. Exam reveals no gallop. No murmur heard. Pulmonary/Chest: She has no wheezes. She has rales in the right lower field and the left lower field. Abdominal: Soft. Musculoskeletal: She exhibits no edema. Skin: Skin is warm and dry. She is not diaphoretic. No cyanosis. Assessment and Plan 1. Congestive heart failure, unspecified HF chronicity, unspecified heart failure type (HCC) - ICD9: 428.0, ICD10: I50.9 (primary diagnosis) Discussed findings at length. Urgent cardiology evaluation recommended. She preferred to stay local. I contacted Dr. Peña's office and spoke with Delma. We'll fax information as agreed upon. They will contact Sheila. - Advised low salt diet, no NSAIDs. - FUROSEMIDE 40 MG TABLET - POTASSIUM CHLORIDE ER 20 MEQ TABLET,EXTENDED RELEASE(PART/CRYST) - METOPROLOL TARTRATE 25 MG TABLET - CONSULT TO CARDIOLOGY - BASIC METABOLIC PNL 2. Cardiomyopathy, unspecified type (HCC) - ICD9: 425.4, ICD10: I42.9 - FUROSEMIDE 40 MG TABLET - POTASSIUM CHLORIDE ER 20 MEQ TABLET,EXTENDED RELEASE(PART/CRYST) - METOPROLOL TARTRATE 25 MG TABLET - CONSULT TO CARDIOLOGY - BASIC METABOLIC PNL Geoff Aguirre MD EMERGENCY DEPARTMENT Observed: 10/28/2018 Status: F Source: [place] SUMMARY 1:57 AM [facility] [place] [facility] Medical Records Department [address] [place] [address] Emergency Department Summary 10/27/186 MR#: [id number] Acct: [id number] Name: SHEILA GUTIERREZ Rep #: [id number] : 1950 68 From: Roxann Duffy MD PCP: Geoff Aguirre MD Status: DEP ER - ER Visit Summary Date of Service: 10/27/18 Chief Complaint: Shortness of breath History of Present Illness: The patient is a 68 F sent in by her PCP for CTA of the chest. Patient has been complaining of shortness of breath for the past 2 weeks. She states she initially noted symptoms after doing some different chores at home including cleaning out horse stalls. Even after changing this work she continued to have shortness of breath. She denies chest pain. She was seen at her PCPs office yesterday where her d-dimer was greater than 1000 and her BNP was 2378. Renal function was normal. Patient was told to come to the ED for a CTA as her insurance required previous authorization. Physical Examination: Blood pressure is 152/103, temperature 97, heart rate 117, respiratory rate 18, pulse ox 96% on room air. Patient sitting at bedside. She is in no acute distress. She is speaking full sentences. Heart is regular rhythm but slightly tachycardic. Lungs sounds are diminished at the bases. There is no wheezing or crackles. Abdomen is soft nontender. Lower extremity examination was no significant calf tenderness or edema. Test Results: EKG is sinus tach at 113 with no sign of acute ischemia. CBC and chemistry studies unremarkable. Coags normal. Troponin is 0.028. BNP is 600. CTA of the chest reveals small bilateral pleural effusions. Emergency Department Course and Treatment: Test results were discussed with Dr. Elizabeth, on-call for the patient's primary care physician. Patient will be given Lasix and potassium for the next 7 days. Patient is already scheduled for an echocardiogram tomorrow morning. Treatment Plan: [] Disposition: Discharge Impression: CHF This note was generated with [employer] dictation software. It may contain incorrect words, spelling, and punctuation that were not noted in review of the chart prior to signing ED Disposition - Plan for ED Patient: Disposition: Home or Assisted Living Chief Complaint: Shortness of Breath Instructions: ED CHF General Prescriptions: Furosemide [Lasix] 40 mg PO DAILY #7 tablet Potassium Chloride 20 meq PO DAILY #7 packet Referrals: Geoff Aguirre MD [Primary Care Provider] - Additional Instructions: Follow-up tomorrow for echo as scheduled. What to do if you have Problems For any increased pain, shortness of breath, bleeding, nausea or vomiting, chest pain, or any unexpected problems, contact your Primary Care Provider. Call [facility] ([phone]) or report to the closest Emergency Room. Call 911 if necessary. 10/28/18 0157 <Electronically signed by Roxann Duffy MD> Date Roxann Duffy MD Cosigner Signature (If Indicated): Date CC: Geoff Aguirre MD DISCHARGE INSTRUCTION Observed: 10/27/2018 Status: F Source: [place] 9:31 PM [facility] Medical Records Department [address] [place] [address] Discharge Instruction 10/27/182125 MR#: [id number] Acct: [id number] Name: SHEILA GUTIERREZ Rep #: [id number] : 1950 68 From: Roxann Duffy MD PCP: Geoff Aguirre MD Status: REG ER ED Disposition - Plan for ED Patient: Disposition: Home or Assisted Living Chief Complaint: Shortness of Breath Instructions: ED CHF General Prescriptions: Furosemide [Lasix] 40 mg PO DAILY #7 tablet Potassium Chloride 20 meq PO DAILY #7 packet Referrals: Geoff Aguirre MD [Primary Care Provider] - Additional Instructions: Follow-up tomorrow for echo as scheduled. What to do if you have Problems For any increased pain, shortness of breath, bleeding, nausea or vomiting, chest pain, or any unexpected problems, contact your Primary Care Provider. Call [facility] ([phone]) or report to the closest Emergency Room. Call 911 if necessary. 10/27/182130 <Electronically signed by Roxann Duffy MD> Date Roxann Duffy MD Cosign Signature (If Indicated): Date CC: Geoff Aguirre MD CBC W/DIFF, AUTOMATED Collected: 10/27/2018 Status: F Source: [place] 7:15 PM [facility] TYPE CODE TESTS RESULT OUT OF RANGE REFERENCE UNITS LAB L100.1000 4.4-11.0 K/mm3 Normal WBC 9.2 LAB L100.1200 4.2-5.4 M/mm3 Normal RBC 4.27 LAB L100.1300 12.0-15.0 g/dl Normal HGB 12.1 LAB L100.1400 37-47 % Normal HCT 38.3 LAB L100.1500 81-99 fL Normal MCV 89.7 LAB L100.1600 27.0-32.0 pg Normal MCH 28.3 LAB L100.1700 32-36 g/gl Low MCHC 31.6 LAB L100.1810 11.6-14.6 % High RDW CV 15.1 LAB L100.1820 35.1-43.9 fl High RDW SD 48.6 LAB L100.1900 150-450 K/mm3 Normal PLT 283 LAB L100.2000 6.2-12.0 fl Normal MPV 11.3 LAB L100.2100 47-70 % Normal NEUT% 68.9 LAB L100.2200 19-41 % Normal LY% 23.5 LAB L100.2300 0-10 % Normal MONO% 5.5 LAB L100.2400 0-5 % Normal EO% 1.5 LAB L100.2500 0-1 % Normal BASO% 0.5 LAB L100.2550 0.0-0.9 % Normal IM GRAN % 0.100 Result Comment: IG% - Immature Granulocytes (promyelocytes, myelocytes and metamyelocytes) > 1% indicates that a LEFT SHIFT is Present. LAB L100.2620 2.0-7.7 X10 3/uL Normal Absolute Neut 6.3 LAB L100.2720 0.83-4.51 X10 3/ul Normal Absolute Lymph 2.15 Performed By: #### L100.0100 #### [facility] [address] [facility] [place], [place], [id number] BASIC METABOLIC Collected: 10/27/2018 Status: F Source: [place] PROFILE ([facility]) 7:15 PM [facility] TYPE CODE TESTS RESULT OUT OF RANGE REFERENCE UNITS LAB L501.0100 74-106 mg/dL High GLU 129 Result Comment: Fasting Glucose result greater than or equal to 126 mg/dL suggests DIABETES MELLITUS per A.D.A. criteria. Please note revised GLUCOSE reference range effective 2017. LAB L501.1000 7-18 mg/dL High BUN 19 LAB L501.1100 0.55-1.02 mg/dL Normal CREAT,SERUM 0.64 Result Comment: The validity of the calculated GFR AND GFRAA in patients over 70 years has not been determined. Clinical correlation is essential. LAB L501.1110 >60 mL/min Normal EST GFR 98 Result Comment: Non- GFR Calc LAB L501.1115 >60 mL/min Normal EST GFR - AA 119 Result Comment: GFR Calc LAB L501.1255 ml/min Normal Estimated CRCL 43.77 LAB L501.1300 10-20 RATIO High BUN/CRE 29.5 LAB L501.2200 8.5-10 mg/dL Normal .1 CA 8.9 LAB L501.5300 136-14 mmol/L Normal 5 NA 143 LAB L501.5600 3.5-5. mmol/L Normal 1 K 4.2 LAB L501.5900 98-107 mmol/L High CL 111 LAB L501.6100 21.0-3 mmol/L Normal 2.0 CO2 22.0 LAB L501.6200 5-15 Normal GAP 10 Performed By: #### L500.2500, L501.4010 #### [facility] [address] [facility] [address] [place], [place], [address] TROPONIN-I Collected: 10/27/2018 Status: F Source: [place] 7:15 PM [facility] TYPE CODE TESTS RESULT OUT OF RANGE REFERENCE UNITS LAB L501.4010 <0.045 ng/mL Normal 0.028 TROPONIN-I Result Comment: TROPONIN-I EXPECTED VALUES <0.045 Negative 0.045 - 0.590 Consistent with Cardiac Damage > OR = 0.600 Critical Value Not every elevated troponin is indicative of NM. These values should be used with clinical judgement in examining the patient's clinical picture for diagnosis. To establish a diagnosis of NM versus myocardial injury, there must be a demonstrated rise and/or fall in the troponin values, in addition to ischemic symptoms, EKG changes, new regional wall motion abnormality, and/or angiographical evidence. PLEASE NOTE: REFERENCE RANGES EDITED 18 Performed By: #### L500.2500, L501.4010 #### [facility] [address] [place], [address] PROTHROMBIN TIME W/INR Collected: 10/27/2018 Status: F Source: [place] 7:15 PM [facility] TYPE CODE TESTS RESULT OUT OF RANGE REFERENCE UNITS LAB L300.4150 11.7-14.9 SECONDS Normal PROTIME 13.9 LAB L300.4200 Normal INR 1.1 Performed By: #### L300.3900, L300.4310 #### [facility] [address] [place], [address] PARTIAL THROMBOPLAST Collected: 10/27/2018 Status: F Source: [place] TIME 7:15 PM [facility] TYPE CODE TESTS RESULT OUT OF RANGE REFERENCE UNITS LAB L300.4310 24.1-36.2 Seconds Normal PTT 26.9 Performed By: #### L300.3900, L300.4310 #### [facility] [address] [place], [address] BNP,B-TYPE NATRIURETIC Collected: 10/27/2018 Status: F Source: [place] 7:15 PM [facility] TYPE CODE TESTS RESULT OUT OF RANGE REFERENCE UNITS LAB L503.6620 0-100 pg/mL High B-TYPE 599.3 HAYLEE PEP Performed By: #### L503.6620 #### [facility] [address] [place], [address] CTA CHEST W/WO Observed: 10/27/2018 Status: F Source: [place] CONTR[place] 6:54 PM [facility] Imaging Services [address] [place] [address] CTA Chest W/WO Contrast MR#: [id number] Acct: [id number] Name: SHEILA GUTIERREZ Rep #: [id number] : 1950 F 68 From: Coleman Hart MD PCP: Geoff Aguirre MD Status: REG ER Study: CTA Chest W/WO Contrast Date of Exam: 10/27/18 Exam# [id number] Ordering Dr: Roxann Duffy MD STUDY: CTA CHEST REASON FOR EXAM: Female, 68 years old. Shortness of breath x2 weeks RADIATION DOSAGE (If Supplied By Facility): CTDIvol = ( 13.76 ) mGy, DLP = ( 499.99 ) mGycm TECHNIQUE: The examination was performed with the intravenous administration of 100ML ml of Isovue 370 contrast material. Post-processing of the angiographic images was performed, with multiplanar reformation and 3D reconstruction. Individualized dose optimization techniques were used for this CT. COMPARISON: December 31, 2016 FINDINGS: Normal enhancement of the main pulmonary artery and right and left pulmonary arteries. Normal enhancement of the bilateral peripheral pulmonary arteries. There is no demonstrated pulmonary embolism. Normal thoracic aorta and visualized great vessels. There is no demonstrated aortic dissection. Normal heart and pericardium. Cardiomegaly and calcific coronary artery disease. Normal mediastinum. Normal hilar regions. Normal visualized trachea and bronchi. The lungs are well expanded. Normal pulmonary parenchyma. Small bilateral pleural effusions. Bibasilar subsegmental atelectasis. Normal chest wall structures. Normal osseous structures. Normal visualized upper abdomen. CT/CTA Chest W/WO Contrast IMPRESSION: Small bilateral pleural effusions. Recommend follow-up to resolution. Electronically Signed: Coleman Hart MD at 20:31 EST , Service support , CC: Roxann Duffy MD; Geoff Aguirre MD Haul Driver: Signed CBC AND DIFFERENTIAL Collected: 10/26/2018 Status: F Source: [place] 3:10 PM [facility] REPOSITORY TYPE CODE TESTS RESULT OUT OF REFERENCE UNITS RANGE LAB WBC 3.70-11.00 k/uL WBC 10.30 LAB RBC 3.90-5.20 m/uL RBC 4.02 LAB HGB 11.5-15.5 g/dL Hemoglobin 11.6 LAB HCT 36.0-46.0 % Hematocrit 37.2 LAB MCV 80.0-100.0 fL MCV 92.5 LAB MCH 26.0-34.0 pG MCH 28.9 LAB MCHC 30.5-36.0 g/dL MCHC 31.2 LAB RDWCV 11.5-15.0 % RDW-CV 14.8 LAB PLTCT 150-400 k/uL Platelet Count 275 LAB MPV 9.0-12.7 fL MPV 12.7 LAB ANEUT % Neut% 74.2 LAB AANEUT 1.45-7.50 k/uL Abs Neut High 7.64 LAB ALYMP % Lymph% 19.0 LAB AALYMP 1.00-4.00 k/uL Abs Lymph 1.96 LAB AMONO % Edmonson% 5.3 LAB AAMONO <0.87 k/uL Abs Edmonson 0.55 LAB AEOS % Eosin% 1.0 LAB AAEOS <0.46 k/uL Abs Eosin 0.10 LAB ABASO % Baso% 0.5 LAB AABASO <0.11 k/uL Abs Baso 0.05 LAB AUNRBC 0 /100 WBC NRBCs 0.0 LAB ABNRBC <0.01 k/uL Absolute nRBC <0.01 LAB DTYP DTYPE Auto Diff Performed By: #### CBCDIF, DDMER, BMP, NTBNP, TSH #### [facility] [address] [place], [place] [address] D DIMER Collected: 10/26/2018 Status: F Source: [place] 3:10 PM [facility] REPOSITORY TYPE CODE TESTS RESULT OUT OF REFERENCE UNITS RANGE LAB DDMER <500 ng/mL FEU High D dimer 1000 Result Comment: The D-dimer assay can be used to exclude pulmonary embolism (PE) and deep vein thrombosis (DVT) in conjunction with a low pre-test probability. For patients with a suspected DVT, a D Dimer level below 500 ng/mL FEU has a negative predictive value of >=99.0%, a sensitivity of >=97.0%, and a specificity of >=35.8%. For patients with a garcia spected PE, a D Dimer level below 500 ng/mL FEU has a negative predictive value of >=98.6%, a sensitivity of >=96.6%, and a specificity of >=38.9%. Performed By: #### CBCDIF, DDMER, BMP, NTBNP, TSH #### [facility] [address] [place], [place] [address] BASIC METABOLIC PANL Collected: 10/26/2018 Status: F Source: [place] 3:10 PM [facility] [place] REPOSITORY TYPE CODE TESTS RESULT OUT OF REFERENCE UNITS RANGE LAB GLU 74-99 mg/dL High Glucose 157 Result Comment: The [place] Diabetes Association (ADA) provides guidance for cutoff values for fasting glucose and random glucose. The ADA defines fasting as no caloric intake for at least 8 hours. Fas ting plasma glucose results between 100 to 125 mg/dL indicate increased risk for diabetes (prediabetes). Fasting plasma glucose results greater than or equal to 126 mg/dL meet the criteria for diagnosis of diabetes. In the absence of unequivocal hyperglycemia, results should be confirmed by repeat testing. In a patient with classic symptoms of hyperglycemia or hyperglycemic crisis, random plasma glucose results greater than or equal to 200 mg/dL meet the criteria for diagnosis of diabetes. Reference: Standards of Medical Care in Diabetes 2016, [place] Diabetes Association. Diabetes Care. 2016.39(Suppl 1). LAB BUN 7-21 mg/dL BUN 19 LAB CRET 0.58-0.96 mg/dL Creatinine 0.72 LAB NA 136-144 mmol/L Sodium 144 LAB K 3.7-5.1 mmol/L Potassium 4.1 LAB CL 97-105 mmol/L Chloride 105 LAB CO2 22-30 mmol/L CO2 24 LAB AGAP 9-18 mmol/L Anion Gap 15 LAB CA 8.5-10.2 mg/dL Calcium, Total 9.2 LAB GFRAA eGFR- Amer. >60 LAB GFRNAA . eGFR-All Other Races >60 Result Comment: eGFR (Estimated GFR) Units of measure: mL/min/1.73 meters squared eGFR is derived from the reexpressed MDRD Study equation using the following parameters: serum creatinine, age, gender and race. The creatinine assay has been calibrated to be traceable to IDMS. An eGFR <60 mL/min/1.73m2 for >3 months is consistent with chronic kidney disease. Refer to KDOQI guidelines for clinical interpretation. In patients with unstable renal function, e.g. those with acute kidney injury, the eGFR may not accurately reflect actual GFR. Performed By: #### CBCDIF, DDMER, BMP, NTBNP, TSH #### [facility] [address] [place], [place] [id number] NT PRO BNP Collected: 10/26/2018 Status: F Source: [place] 3:10 PM [facility] REPOSITORY TYPE CODE TESTS RESULT OUT OF REFERENCE UNITS RANGE LAB PBNP <125 pg/mL High PRO B Natr 2378 Peptide Performed By: #### CBCDIF, DDMER, BMP, NTBNP, TSH #### [facility] [address] [place], [place] [address] TSH Collected: 10/26/2018 Status: F Source: [place] 3:10 PM [facility] REPOSITORY TYPE CODE TESTS RESULT OUT OF RANGE REFERENCE UNITS LAB TSH 0.400-5.500 uU/mL TSH 1.860 Performed By: #### CBCDIF, DDMER, BMP, NTBNP, TSH #### [facility] [address] [place] [id number] XR CHEST 2V FRONTAL/LAT Observed: 10/26/2018 Status: F Source: [place] 3:01 PM [facility] REPOSITORY * * *Final Report* * * DATE OF EXAM: Oct 26 2018 3:01PM WOX [id number] - XR CHEST 2V FRONTAL/LAT / PROCEDURE REASON: Dyspnea on exertion * * * * Physician Interpretation * * * * EXAMINATION: CHEST RADIOGRAPH (2 VIEW FRONTAL and LATERAL) CLINICAL HISTORY: Dyspnea on exertion . History of uterine carcinoma MQ: XC2_5 Comparison: 03/28/2015 RESULT: Lines, tubes, and devices: None. Lungs and pleura: Somewhat low lung volumes. Minimal atelectasis at both lung bases. Mild cardiac enlargement. Mild prominence of central pulmonary arteries. No developing nodule or mass. No evidence of pleural fluid or pneumothorax. IMPRESSION: Somewhat low lung volumes. Minimal atelectasis at both lung bases. Mild cardiac enlargement. No developing abnormality or acute process otherwise. Haul Driver: PSCB Transcribe Date/Time: Oct 27 2018 11:36A Dictated by : CHRIS LOUIS MD This examination was interpreted and the report reviewed and electronically signed by: CHRIS LOUIS MD on Oct 27 2018 11:38AM EST [id number] PROGRESS Observed: 10/26/2018 Status: COMPLETED Source: [place] 2:53 PM [facility] REPOSITORY HNO ID: [id number] Author: Mariella Edwards (Rt) Jean Marie Kemp Service: (none) Author Type: Manager Bank Type: Progress Notes Filed: 10/26/2018 3:01 PM Note Text: Radiology Service Progress Note PATIENT NAME: Sheila Gutierrez DATE OF SERVICE: October 26, 2018 TIME: 2:53 PM PATIENT IDENTITY VERIFICATION COMPLETED USING TWO (2) METHODS: Patient confirmed name verbally and Date of . PATIENT GENDER DATA: Female. status: : No status: NO. PATIENT RELEVANT IMPLANT DATA REVIEWED: Not Applicable RADIOLOGY DEPARTMENT: General X-ray: Exam(s) Completed: Chest X-Ray PERIPHERAL IV DATA: Not applicable SIGNED BY: RT Dianne October 26, 2018 2:53 PM EKG1 Observed: 10/26/2018 Status: F Source: [place] 2:25 PM [facility] REPOSITORY NAME : SHEILA GUTIERREZ PID : [id number] : 1950 Gender : Female Race : ORD : Procedure Date : Oct 26 2018 14:25:20 Edit Date : Nov 09 2018 09:18:03 Diagnosis:SINUS TACHYCARDIA POSSIBLE LEFT ATRIAL ENLARGEMENT LATERAL T WAVE ABNORMALITY ABNORMAL ECG Confirmed by DIRK GARCIA D.O. ([id number]) on 11/09/2018 9:17:53 AM Ventricular Rate : 115 BPM Atrial Rate : 115 BPM P-R Interval : 126 ms QRS Duration : 82 ms Q-T Interval : 330 ms QTC Calculation(Bezet) : 456 ms P Stringer : 63 degrees R Stringer : 52 degrees T Stringer : 210 degrees Test Reason : Location : 185 : WO Overread By : DIRK GARCIA D.O. Edited By : DIRK GARCIA D.O. Referred By : NIKUNJ, Acquired by : MARCOS EKG1 Observed: 10/26/2018 Status: F Source: [place] 2:25 PM [facility] [place] REPOSITORY NAME : SHEILA GUTIERREZ PID : [id number] : 1950 Gender : Female Race : ORD : Procedure Date : Oct 26 2018 14:25:35 Edit Date : Nov 09 2018 09:18:07 Diagnosis:SINUS TACHYCARDIA POSSIBLE LEFT ATRIAL ENLARGEMENT LATERAL T WAVE ABNORMALITY ABNORMAL ECG Confirmed by DIRK GARCIA D.O. ([id number]) on 11/09/2018 9:17:57 AM Ventricular Rate : 116 BPM Atrial Rate : 116 BPM P-R Interval : 132 ms QRS Duration : 82 ms Q-T Interval : 322 ms QTC Calculation(Bezet) : 447 ms P Stringer : 63 degrees R Stringer : 55 degrees T Stringer : 200 degrees Test Reason : Location : 185 : WO Overread By : DIRK GARCIA D.O. Edited By : DIRK GARCIA D.O. Referred By : NIKUNJ, Acquired by : MARCOS, PROGRESS Observed: 10/26/2018 Status: COMPLETED Source: [place] 2:07 PM [facility] REPOSITORY HNO ID: [id number] Author: Naty Calvin Service: (none) Author Type: Nurse Practitioner Type: Progress Notes Filed: 10/26/2018 2:43 PM Note Text: CC: Patient presents with: breathing issues HPI Sheila Gutierrez is a 68 year old female who presents today for SOB with minimal exertion since after and woke her up last night for the first time. Had to sleep in a recliner. Positive for wheezing, non-productive cough, fatigue. No chest pain/pressure, heart palpitations, hemoptysis, fever, chills, night sweats, significant changes in weight. She was seen by PCP before for routine follow-up. Heart rate was elevated at that time but EKG was normal. States since then has been monitoring at home, rate in the 90's to 110's. No history of heart or lung issues. History of uterine cancer. No seasonal or environmental allergies Former smoker, quit about 40 years ago. No environmental exposures. REVIEW OF SYSTEMS HEENT: no nose bleeds, no sinus or nasal problems Neck: no lumps, no pain and no swelling GI: Negative for abdominal discomfort, blood in stools or black stools, heart burn, nausea, vomiting Skin: Negative for lesions, rash, and itching Endocrine: no hair loss, no dry skin, no cold intolerance and no heat intolerance PAST MEDICAL HISTORY Diagnosis Date - Abnormal Papanicolaou smear of vagina and vaginal HPV - BENIGN HYPERTENSION 01/23/2009 - Lumbago with sciatica 04/29/2011 Left - Malignant neoplasm of corpus uteri (HCC) 03/03/2015 - Malignant neoplasm of corpus uteri, except isthmus (HCC) 03/21/2015 - Osteoarthritis of hip 06/30/2014 Left. - PMH - PAST MEDICAL HISTORY OF 11/2008 calcifications in the right breast - PMH - PAST MEDICAL HISTORY OF bowel problems due to artificial sweeteners - S/P laparoscopic hysterectomy 04/10/2015 ENED[place], BSO, pelvic lymphadenectomy - Snoring - Synovial cyst of lumbar facet joint 04/29/2011 Left - Type II or unspecified type diabetes mellitus without mention of complication, not stated as uncontrolled 03/01/2009 - Umbilical hernia without obstruction or gangrene 01/13/2018 PAST SURGICAL HISTORY Procedure Laterality Date - COLONOSCOP W/ OR W/O BRS SPEC January 1998 Colonoscopy - COLONOSCOP W/ OR W/O [facility] SPEC Colonoscopy - LAMINECTOMY,>2 SGMT,LUMBAR - LAP HYSTERECTOMY FOR UTERUS 250G OR LESS 04/10/2015 bilateral salpingo-oophorectomy, cystoscopy, bilateral pelvic lymphadenectomy. - PAST SURGICAL HISTORY OF 2001 Right breast biopsy - REMOVAL GALLBLADDER Cholecystectomy, laparoscopic - STEREO LOC FOR CORE BRST BX LT 12-27-08 LEFT ALLERGIES Black Cohash [Other]; Codeine; Percodan [Oxycodone-Aspirin] MEDICATIONS aspirin(ECOTRIN LOW STRENGTH 81 MG TAB) Take one(1) tablet daily. atorvastatin (LIPITOR) 10 mg tablet Take 1 tablet by mouth once daily. blood sugar diagnostic (BLOOD GLUCOSE TEST) test strip Testing twice daily for uncontrolled blood sugars 250.00 non insulin dependent.Use as instructed blood sugar diagnostic (FREESTYLE LITE STRIPS) test strip Test blood sugar(s) 2 times daily. Dx: Type 2 DM - Controlled E11.9 Insulin: No cyclobenzaprine (FLEXERIL) 10 mg tablet Take 1 tablet by mouth twice daily as needed for Muscle Spasm. Dr. Raines gabapentin (NEURONTIN) 300 mg capsule Take 1 capsule by mouth four times daily. Lancets lancets Test blood sugar(s) twice times daily. Dx: 250.00. Insulin: No lisinopril (ZESTRIL, PRINIVIL) 5 mg tablet Take 1 tablet by mouth once daily. meloxicam (MOBIC) 15 mg tablet Take 1 tablet by mouth once daily as needed (joint pain). metFORMIN (GLUCOPHAGE) 1,000 mg tablet Take 1 tablet by mouth twice daily with meals. traMADol (ULTRAM) 50 mg tablet Take 1 tablet by mouth twice daily as needed for Pain. Dr. Raines FAMILY HISTORY Problem Relation Age of Onset - Cancer Father lung, - Diabetes Father - Diabetes Sister - Diabetes Paternal Grandfather - Emphysema Father - Arthritis Mother - Osteoporosis Mother - Hypertension Mother - Hypertension Sister - Lipids Sister Social History Substance Use Topics - Smoking status: Former Smoker Packs/day: 1.00 Years: 20.00 Types: Cigarettes Quit date: 11/10/1977 - Smokeless tobacco: Never Used - Alcohol use Yes Comment: rare PHYSICAL EXAM BP 118/80 Pulse 117 Temp 36.5 ?C (97.7 ?F) (Temporal Artery) Resp 18 Wt 83.5 kg (184 lb) SpO2 98% BMI 33.65 kg/m? General Appearance: well appearing, in no acute distress, alert Pysch: mood and affect broad and appropriate Skin: Skin color, texture, turgor normal for age; Eyes: PERRLA, conjunctiva pink and moist, no icterus, sclera white, non-injected Neck: Thyroid normal size and symmetric without palpable nodules, No bruits, Neck supple, No adenopathy Oropharynx: lips normal without lesions, tongue midline and normal, soft palate, uvula, and tonsils normal Lymph nodes: No supraclavicular lymphadenopathy Lungs: lungs clear to auscultation. No wheezing, rhonchi, rales Heart: Rate 110, regular rhythm without murmur, gallop, or rubs. No ectopy Abdomen: Abdomen soft, non-tender. Bowel sounds normal. No masses, organomegaly Extremities: No deformities, edema, skin discoloration, clubbing or cyanosis. Good capillary refill. , Pulses: 2+ ASSESSMENT/PLAN: 1. Dyspnea on exertion - ICD9: 786.09, ICD10: R06.09 (primary diagnosis) Symptoms concerning for cardiac and/or pulmonary etiology including heart failure, pulmonary embolism, ischemia - ECG COMPLETE W INTERPRETATION sinus tachycardia V-rate 116, T wave abnormality. No significant changes from previous Discussed with patient's PCP, following work-up recommended: - CBC + DIFF - ECHO - XR CHEST 2V FRONTAL/LAT - NT PRO BNP - D-DIMER Follow-up in one week or sooner as needed. To ER for any worsening symptoms 2. Tachycardia - ICD9: 785.0, ICD10: R00.0 As above - ECG COMPLETE W INTERPRETATION - CBC + DIFF - BASIC METABOLIC PNL - TSH BLD - ECHO - NT PRO BNP - D-DIMER 3. Fatigue, unspecified type - ICD9: 780.79, ICD10: R53.83 As above - ECG COMPLETE W INTERPRETATION - CBC + DIFF - BASIC METABOLIC PNL - TSH BLD Prescription instructions reviewed with patient as applicable. Potential red flag symptoms discussed with the patient. Reviewed appropriate action plan to take if red flag symptoms occur. Patient agreeable to treatment plan. Naty Calvin APRN.CNP CNOV Observed: 10/26/2018 Status: COMPLETED Source: CADE 2:00 PM [facility] REPOSITORY Office Visit (INTMWS) SHEILA GUTIERREZ ([id number]) 1950 F Date Time Provider Department 10/26/18 2:00 PM NATY CALVIN (BAM) INTDoraWS During your visit today, we recorded the following information about you: Temperature Pulse Respiration Blood pressure 97.7 degrees 117/minute 18/minute 118/80 Weight 83.5 kg Naty Calvin APRN.CNP 10/26/2018 2:43 PM Signed CC: Patient presents with: breathing issues HPI Sheila Gutierrez is a 68 year old female who presents today for SOB with minimal exertion since after and woke her up last night for the first time. Had to sleep in a recliner. Positive for wheezing, non- productive cough, fatigue. No chest pain/pressure, heart palpitations, hemoptysis, fever, chills, night sweats, significant changes in weight. She was seen by PCP before for routine follow-up. Heart rate was elevated at that time but EKG was normal. States since then has been monitoring at home, rate in the 90's to 110's. No history of heart or lung issues. History of uterine cancer. No seasonal or environmental allergies Former smoker, quit about 40 years ago. No environmental exposures. REVIEW OF SYSTEMS HEENT: no nose bleeds, no sinus or nasal problems Neck: no lumps, no pain and no swelling GI: Negative for abdominal discomfort, blood in stools or black stools, heart burn, nausea, vomiting Skin: Negative for lesions, rash, and itching Endocrine: no hair loss, no dry skin, no cold intolerance and no heat intolerance PAST MEDICAL HISTORY Diagnosis Date - Abnormal Papanicolaou smear of vagina and vaginal HPV - BENIGN HYPERTENSION 01/23/2009 - Lumbago with sciatica 04/29/2011 Left - Malignant neoplasm of corpus uteri (HCC) 03/03/2015 - Malignant neoplasm of corpus uteri, except isthmus (HCC) 03/21/2015 - Osteoarthritis of hip 06/30/2014 Left. - PMH - PAST MEDICAL HISTORY OF 11/2008 calcifications in the right breast - PMH - PAST MEDICAL HISTORY OF bowel problems due to artificial sweeteners - S/P laparoscopic hysterectomy 04/10/2015 ENEDINA, BSO, pelvic lymphadenectomy - Snoring - Synovial cyst of lumbar facet joint 04/29/2011 Left - Type II or unspecified type diabetes mellitus without mention of complication, not stated as uncontrolled 03/01/2009 - Umbilical hernia without obstruction or gangrene 01/13/2018 PAST SURGICAL HISTORY Procedure Laterality Date - COLONOSCOP W/ OR W/O BRSH SPEC January 1998 Colonoscopy - COLONOSCOP W/ OR W/O BRSH SPEC Colonoscopy - LAMINECTOMY,>2 SGMT,LUMBAR - LAP HYSTERECTOMY FOR UTERUS 250G OR LESS 04/10/2015 bilateral salpingo-oophorectomy, cystoscopy, bilateral pelvic lymphadenectomy. - PAST SURGICAL HISTORY OF 2001 Right breast biopsy - REMOVAL GALLBLADDER Cholecystectomy, laparoscopic - STEREO LOC FOR CORE BRST BX LT 12-27-08 LEFT ALLERGIES Black Cohash [Other]; Codeine; Percodan [Oxycodone-Aspirin] MEDICATIONS aspirin(ECOTRIN LOW STRENGTH 81 MG TAB) Take one(1) tablet daily. atorvastatin (LIPITOR) 10 mg tablet Take 1 tablet by mouth once daily. blood sugar diagnostic (BLOOD GLUCOSE TEST) test strip Testing twice daily for uncontrolled blood sugars 250.00 non insulin dependent.Use as instructed blood sugar diagnostic (FREESTYLE LITE STRIPS) test strip Test blood sugar(s) 2 times daily. Dx: Type 2 DM - Controlled E11.9 Insulin: No cyclobenzaprine (FLEXERIL) 10 mg tablet Take 1 tablet by mouth twice daily as needed for Muscle Spasm. Dr. Raines gabapentin (NEURONTIN) 300 mg capsule Take 1 capsule by mouth four times daily. Lancets lancets Test blood sugar(s) twice times daily. Dx: 250.00. Insulin: No lisinopril (ZESTRIL, PRINIVIL) 5 mg tablet Take 1 tablet by mouth once daily. meloxicam (MOBIC) 15 mg tablet Take 1 tablet by mouth once daily as needed (joint pain). metFORMIN (GLUCOPHAGE) 1,000 mg tablet Take 1 tablet by mouth twice daily with meals. traMADol (ULTRAM) 50 mg tablet Take 1 tablet by mouth twice daily as needed for Pain. Dr. Raines FAMILY HISTORY Problem Relation Age of Onset - Cancer Father lung, - Diabetes Father - Diabetes Sister - Diabetes Paternal Grandfather - Emphysema Father - Arthritis Mother - Osteoporosis Mother - Hypertension Mother - Hypertension Sister - Lipids Sister Social History Substance Use Topics - Smoking status: Former Smoker Packs/day: 1.00 Years: 20.00 Types: Cigarettes Quit date: 11/10/1977 - Smokeless tobacco: Never Used - Alcohol use Yes Comment: rare PHYSICAL EXAM BP 118/80 Pulse 117 Temp 36.5 ?C (97.7 ?F) (Temporal Artery) Resp 18 Wt 83.5 kg (184 lb) SpO2 98% BMI 33.65 kg/m? General Appearance: well appearing, in no acute distress, alert Pysch: mood and affect broad and appropriate Skin: Skin color, texture, turgor normal for age; Eyes: PERRLA, conjunctiva pink and moist, no icterus, sclera white, non-injected Neck: Thyroid normal size and symmetric without palpable nodules, No bruits, Neck supple, No adenopathy Oropharynx: lips normal without lesions, tongue midline and normal, soft palate, uvula, and tonsils normal Lymph nodes: No supraclavicular lymphadenopathy Lungs: lungs clear to auscultation. No wheezing, rhonchi, rales Heart: Rate 110, regular rhythm without murmur, gallop, or rubs. No ectopy Abdomen: Abdomen soft, non-tender. Bowel sounds normal. No masses, organomegaly Extremities: No deformities, edema, skin discoloration, clubbing or cyanosis. Good capillary refill. , Pulses: 2+ ASSESSMENT/PLAN: 1. Dyspnea on exertion - ICD9: 786.09, ICD10: R06.09 (primary diagnosis) Symptoms concerning for cardiac and/or pulmonary etiology including heart failure, pulmonary embolism, ischemia - ECG COMPLETE W INTERPRETATION sinus tachycardia V-rate 116, T wave abnormality. No significant changes from previous Discussed with patient's PCP, following work-up recommended: - CBC + DIFF - ECHO - XR CHEST 2V FRONTAL/LAT - NT PRO BNP - D-DIMER Follow-up in one week or sooner as needed. To ER for any worsening symptoms 2. Tachycardia - ICD9: 785.0, ICD10: R00.0 As above - ECG COMPLETE W INTERPRETATION - CBC + DIFF - BASIC METABOLIC PNL - TSH BLD - ECHO - NT PRO BNP - D-DIMER 3. Fatigue, unspecified type - ICD9: 780.79, ICD10: R53.83 As above - ECG COMPLETE W INTERPRETATION - CBC + DIFF - BASIC METABOLIC PNL - TSH BLD Prescription instructions reviewed with patient as applicable. Potential red flag symptoms discussed with the patient. Reviewed appropriate action plan to take if red flag symptoms occur. Patient agreeable to treatment plan. Naty Calvin APRN.[employer] Referring Provider: SELF [[id number]] Allergies As of Date: 10/26/2018 Noted Allergy Reaction BLACK COHASH [Other] 02/26/2006 5 - Intolerance Comments: MIGRAINE HEADACHES CODEINE 01/18/2009 PERCODAN (OXYCODONE-ASPIRIN) 01/18/2009 Date Reviewed: 10/26/2018 Reviewed by: Damaris Marte [employer] - Fully Assessed Reason for Visit: breathing issues [Other] Primary Visit Diagnosis:Dyspnea on exertion [R06.09] Other Visit Diagnoses:Tachycardia [R00.0] Fatigue, unspecified type [R53.83] Order(s):ECG COMPLETE W INTERPRETATION [ECG01] Order #: [id number] FUTURE CBC + DIFF [SQCBCDIF] Order #: [id number] FUTURE BASIC METABOLIC PNL [SQBMP] Order #: [id number] FUTURE TSH BLD [SQTSH] Order #: [id number] FUTURE ECHO [[id number]] Order #: [id number]: 1 FUTURE perflutren lipid microspheres (DEFINITY) 1.1 mg/mL injection (to be provided with echo procedure)Inject 1.3 mL intravenously as directed.Disp: 1.3 mLRfl: 0 XR CHEST 2V FRONTAL/LAT [[id number]] Order #: [id number] FUTURE NT PRO BNP [SQNTBNP] Order #: [id number] FUTURE D-DIMER [SQDDMER] Order #: [id number] FUTURE Prescriptions as of 10/26/2018 Sig: ECOTRIN LOW STRENGTH 81 MG TA* Take one(1) tablet daily. ATORVASTATIN 10 MG TABLET Take 1 tablet by mouth once d* BLOOD SUGAR DIAGNOSTIC STRIPS Testing twice daily for uncon* BLOOD SUGAR DIAGNOSTIC STRIPS Test blood sugar(s) 2 times d* CYCLOBENZAPRINE 10 MG TABLET Take 1 tablet by mouth twice * GABAPENTIN 300 MG CAPSULE Take 1 capsule by mouth four * LANCETS Test blood sugar(s) twice emerald* LISINOPRIL 5 MG TABLET Take 1 tablet by mouth once d* MELOXICAM 15 MG TABLET Take 1 tablet by mouth once d* METFORMIN 1,000 MG TABLET Take 1 tablet by mouth twice * TRAMADOL 50 MG TABLET Take 1 tablet by mouth twice * PERFLUTREN LIPID MICROSPHERES* Inject 1.3 mL intravenously a* Problem List As Of Date 10/26/2018 Noted Resolved Abnormal mammogram, unspecified [R92.8] INVALID FOR*06/12/2011 BENIGN HYPERTENSION [I10] INVALID FOR* Diabetes mellitus type 2, controlled, without c*INVALID FOR* Lumbago with sciatica [M54.40] INVALID FOR* S/P laminectomy [Z98.890] INVALID FOR* Osteoarthritis of hip [M16.9] INVALID FOR* More... Hyperlipidemia [E78.5] INVALID FOR* Malignant neoplasm of corpus uteri, except isth*INVALID FOR* Umbilical hernia without obstruction or gangren*INVALID FOR* Sensorineural hearing loss (SNHL) of left ear [*INVALID FOR* Prescriptions ordered this encounter Disp Refills Start End PERFLUTREN LIPID MICROSPHERES 1.1 MG* 1.3 * 0 10/26/2018 10/26/2019 Class: In Office Route: INTRAVENOUS Sig: Inject 1.3 mL intravenously as directed. Encounter Status:Closed by NATY CALVIN CNP on 10/26/18 PROGRESS Observed: 09/30/2018 Status: COMPLETED Source: CADE 6:54 PM [facility] REPOSITORY O ID: [id number] Author: Geoff Aguirre Service: (none) Author Type: Physician Type: Progress Notes Filed: 09/30/2018 7:11 PM Note Text: This note was created using InStitchuter. Subjective Sheila Gutierrez was here for follow up. She was concerned about her urine microalbumin in the setting of ongoing issues with left flank pain. There was a friend who was found to have kidney related cancer presenting with flank pain. Her pain responded to massage therapy and chiropractic manipulation. Her diabetes mellitus was controlled, except when she had steroids for hearing loss in June.. Hypertension was borderline elevated today. Heart rate was elevated with no symptoms and no recent caffeine intake. ACTIVE PROBLEM LIST Essential Hypertension, Benign Diabetes Mellitus Type 2, Controlled, Without Complications (Hcc) Lumbago With Sciatica S/P Laminectomy Osteoarthritis of Hip Hyperlipidemia Malignant Neoplasm of Corpus Uteri, Except Isthmus (Hcc) Umbilical Hernia Without Obstruction Or Gangrene Sensorineural Hearing Loss (Snhl) of Left Ear Current Outpatient Prescriptions: metFORMIN (GLUCOPHAGE) 1,000 mg tablet Take 1 tablet by mouth twice daily with meals. meloxicam (MOBIC) 15 mg tablet Take 1 tablet by mouth once daily as needed (joint pain). lisinopril (ZESTRIL, PRINIVIL) 5 mg tablet Take 1 tablet by mouth once daily. atorvastatin (LIPITOR) 10 mg tablet Take 1 tablet by mouth once daily. blood sugar diagnostic (FREESTYLE LITE STRIPS) test strip Test blood sugar(s) 2 times daily. Dx: Type 2 DM - Controlled E11.9 Insulin: No traMADol (ULTRAM) 50 mg tablet Take 1 tablet by mouth twice daily as needed for Pain. Dr. Raines cyclobenzaprine (FLEXERIL) 10 mg tablet Take 1 tablet by mouth twice daily as needed for Muscle Spasm. Dr. Raines gabapentin (NEURONTIN) 300 mg capsule Take 1 capsule by mouth four times daily. blood sugar diagnostic (BLOOD GLUCOSE TEST) test strip Testing twice daily for uncontrolled blood sugars 250.00 non insulin dependent.Use as instructed Lancets lancets Test blood sugar(s) twice times daily. Dx: 250.00. Insulin: No aspirin(ECOTRIN LOW STRENGTH 81 MG TAB) Take one(1) tablet daily. No current facility-administered medications for this visit. Review of Systems Constitutional: Negative. Respiratory: Negative. Gastrointestinal: Negative. Genitourinary: Negative. Musculoskeletal: Positive for back pain. Objective BP 130/75 (BP Site: Left Arm, BP Position: Sitting, BP Cuff Size: Regular Adult) Pulse 94 Temp (!) 35.9 ?C (96.7 ?F) (Right Tympanic) Resp 16 Wt 82.6 kg (182 lb) BMI 33.29 kg/m? Physical Exam Constitutional: No distress. Cardiovascular: Normal rate, regular rhythm, S1 normal and S2 normal. Occasional extrasystoles are present. Exam reveals no gallop. No murmur heard. Pulmonary/Chest: Breath sounds normal. Abdominal: Soft. There is no tenderness. Musculoskeletal: She exhibits no edema. Lumbar back: She exhibits decreased range of motion, deformity and spasm. Feet: Shoes and socks removed, No deformities, ulcers, calluses, normal distal pulses, sensitive to 10 gm monofilament and except in left 1st toe from back surgery. Component Latest Ref Rng AND Units 09/25/2018 Protein, Total 6.3 - 8.0 g/dL 6.1 (L) Albumin 3.9 - 4.9 g/dL 4.1 Calcium 8.5 - 10.2 mg/dL 9.0 Bilirubin, Total 0.2 - 1.3 mg/dL 0.4 Alkaline Phosphatase 34 - 123 U/L 64 AST 13 - 35 U/L 19 Glucose 74 - 99 mg/dL 113 (H) BUN 7 - 21 mg/dL 15 Creatinine 0.58 - 0.96 mg/dL 0.62 Sodium 136 - 144 mmol/L 141 Potassium 3.7 - 5.1 mmol/L 4.4 Chloride 97 - 105 mmol/L 106 (H) CO2 22 - 30 mmol/L 22 Anion Gap 9 - 18 mmol/L 13 ALT 7 - 38 U/L 21 eGFR- >60 eGFR-All Other Races . >60 WBC 3.70 - 11.00 k/uL 6.18 RBC 3.90 - 5.20 m/uL 4.32 Hemoglobin 11.5 - 15.5 g/dL 12.3 Hematocrit 36.0 - 46.0 % 39.5 MCV 80.0 - 100.0 fL 91.4 MCH 26.0 - 34.0 pG 28.5 MCHC 30.5 - 36.0 g/dL 31.1 RDW-CV 11.5 - 15.0 % 14.4 Platelet Count 150 - 400 k/uL 229 MPV 9.0 - 12.7 fL 12.5 Absolute nRBC <0.01 k/uL <0.01 Cholesterol, Total <200 mg/dL 121 Triglyceride <150 mg/dL 59 HDL Cholesterol >39 mg/dL 63 LDL Cholesterol <100 mg/dL 46 Non HDL Cholesterol <130 mg/dL 58 Fasting Time hrs 12 VLDL Cholesterol <30 mg/dL 12 TC:HDL Ratio <5.10 1.92 LDL:HDL Ratio <2.54 0.73 Creatinine, Ur Random (UCRR) 20 - 300 mg/dL 85.5 Albumin, Urine Random 0.0 - 23.0 mg/L 49.2 (H) Albumin/Creat Ratio 0 - 30 mg/g 58 (H) Hemoglobin A1C 4.3 - 5.6 % 6.3 (H) Estimated Average Glucose mg/dL 134 EKG RESULTS: nonspecific ST and T waves changes and sinus tachycardia Assessment and Plan 1. Controlled type 2 diabetes mellitus without complication, without long-term current use of insulin (HCC) - ICD9: 250.00, ICD10: E11.9 (primary diagnosis) Controlled. - Continue current medications - METFORMIN 1,000 MG TABLET - We discussed urine micro albumin. 2. Essential hypertension, benign - ICD9: 401.1, ICD10: I10 - fair control - Continue current medication(s) - Reviewed risks of HTN and principles of treatment - Goal of BP <130/80 - ECG COMPLETE W INTERPRETATION 3. Low back pain with sciatica, sciatica laterality unspecified, unspecified back pain laterality, unspecified chronicity - ICD9: 724.3, ICD10: M54.40 - UA DIP, URINE (POC)- Unremarkable. No protein. 4. Hyperlipidemia, unspecified hyperlipidemia type - ICD9: 272.4, ICD10: E78.5 - good control. Continue statin medication. Geoff Aguirre MD ECG COMPLETE W Observed: 09/30/2018 Status: F Source: CADE INTERPRETATION 4:46 PM [facility] REPOSITORY NAME : SHEILA GUTIERREZ PID : [id number] : 1950 Gender : Female Race : ORD : [id number] Procedure Date : Sep 30 2018 16:46:21 Edit Date : Oct 05 2018 09:18:11 Diagnosis:NORMAL SINUS RHYTHM NONSPECIFIC T WAVE ABNORMALITY ABNORMAL ECG Confirmed by DIRK GARCIA D.O. ([id number]) on 10/05/2018 9:17:56 AM Ventricular Rate : 100 BPM Atrial Rate : 100 BPM P-R Interval : 126 ms QRS Duration : 80 ms Q-T Interval : 352 ms QTC Calculation(Bezet) : 454 ms P Stringer : 63 degrees R Stringer : 37 degrees T Stringer : 76 degrees Test Reason : Location : 185 : [facility] Overread By : DIRK GARICA D.O. Edited By : DIRK GARCIA D.O. Referred By : GEOFF AGUIRRE Acquired by : RICH VELA Observed: 09/30/2018 Status: COMPLETED Source: CADE 4:00 PM [facility] REPOSITORY Office Visit (INTMWS) SHEILA GUTIERREZ ([id number]) 1950 F Date Time Provider Department 09/30/18 4:00 PM GEOFF AGUIRRE INTMWS During your visit today, we recorded the following information about you: Temperature Pulse Respiration Blood pressure 96.7 degrees 94/minute 16/minute 130/75 Weight 82.6 kg Geoff gAuirre MD 09/30/2018 7:11 PM Addendum This note was created using NoteWriter. William Gutierrez was here for follow up. She was concerned about her urine microalbumin in the setting of ongoing issues with left flank pain. There was a friend who was found to have kidney related cancer presenting with flank pain. Her pain responded to massage therapy and chiropractic manipulation. Her diabetes mellitus was controlled, except when she had steroids for hearing loss in June.. Hypertension was borderline elevated today. Heart rate was elevated with no symptoms and no recent caffeine intake. ACTIVE PROBLEM LIST Essential Hypertension, Benign Diabetes Mellitus Type 2, Controlled, Without Complications (Hcc) Lumbago With Sciatica S/P Laminectomy Osteoarthritis of Hip Hyperlipidemia Malignant Neoplasm of Corpus Uteri, Except Isthmus (Hcc) Umbilical Hernia Without Obstruction Or Gangrene Sensorineural Hearing Loss (Snhl) of Left Ear Current Outpatient Prescriptions: metFORMIN (GLUCOPHAGE) 1,000 mg tablet Take 1 tablet by mouth twice daily with meals. meloxicam (MOBIC) 15 mg tablet Take 1 tablet by mouth once daily as needed (joint pain). lisinopril (ZESTRIL, PRINIVIL) 5 mg tablet Take 1 tablet by mouth once daily. atorvastatin (LIPITOR) 10 mg tablet Take 1 tablet by mouth once daily. blood sugar diagnostic (FREESTYLE LITE STRIPS) test strip Test blood sugar(s) 2 times daily. Dx: Type 2 DM - Controlled E11.9 Insulin: No traMADol (ULTRAM) 50 mg tablet Take 1 tablet by mouth twice daily as needed for Pain. Dr. Rainse cyclobenzaprine (FLEXERIL) 10 mg tablet Take 1 tablet by mouth twice daily as needed for Muscle Spasm. Dr. Raines gabapentin (NEURONTIN) 300 mg capsule Take 1 capsule by mouth four times daily. blood sugar diagnostic (BLOOD GLUCOSE TEST) test strip Testing twice daily for uncontrolled blood sugars 250.00 non insulin dependent.Use as instructed Lancets lancets Test blood sugar(s) twice times daily. Dx: 250.00. Insulin: No aspirin(ECOTRIN LOW STRENGTH 81 MG TAB) Take one(1) tablet daily. No current facility-administered medications for this visit. Review of Systems Constitutional: Negative. Respiratory: Negative. Gastrointestinal: Negative. Genitourinary: Negative. Musculoskeletal: Positive for back pain. Objective BP 130/75 (BP Site: Left Arm, BP Position: Sitting, BP Cuff Size: Regular Adult) Pulse 94 Temp (!) 35.9 ?C (96.7 ?F) (Right Tympanic) Resp 16 Wt 82.6 kg (182 lb) BMI 33.29 kg/m? Physical Exam Constitutional: No distress. Cardiovascular: Normal rate, regular rhythm, S1 normal and S2 normal. Occasional extrasystoles are present. Exam reveals no gallop. No murmur heard. Pulmonary/Chest: Breath sounds normal. Abdominal: Soft. There is no tenderness. Musculoskeletal: She exhibits no edema. Lumbar back: She exhibits decreased range of motion, deformity and spasm. Feet: Shoes and socks removed, No deformities, ulcers, calluses, normal distal pulses, sensitive to 10 gm monofilament and except in left 1st toe from back surgery. Component Latest Ref Rng AND Units 09/25/2018 Protein, Total 6.3 - 8.0 g/dL 6.1 (L) Albumin 3.9 - 4.9 g/dL 4.1 Calcium 8.5 - 10.2 mg/dL 9.0 Bilirubin, Total 0.2 - 1.3 mg/dL 0.4 Alkaline Phosphatase 34 - 123 U/L 64 AST 13 - 35 U/L 19 Glucose 74 - 99 mg/dL 113 (H) BUN 7 - 21 mg/dL 15 Creatinine 0.58 - 0.96 mg/dL 0.62 Sodium 136 - 144 mmol/L 141 Potassium 3.7 - 5.1 mmol/L 4.4 Chloride 97 - 105 mmol/L 106 (H) CO2 22 - 30 mmol/L 22 Anion Gap 9 - 18 mmol/L 13 ALT 7 - 38 U/L 21 eGFR- >60 eGFR-All Other Races . >60 WBC 3.70 - 11.00 k/uL 6.18 RBC 3.90 - 5.20 m/uL 4.32 Hemoglobin 11.5 - 15.5 g/dL 12.3 Hematocrit 36.0 - 46.0 % 39.5 MCV 80.0 - 100.0 fL 91.4 MCH 26.0 - 34.0 pG 28.5 MCHC 30.5 - 36.0 g/dL 31.1 RDW-CV 11.5 - 15.0 % 14.4 Platelet Count 150 - 400 k/uL 229 MPV 9.0 - 12.7 fL 12.5 Absolute nRBC <0.01 k/uL <0.01 Cholesterol, Total <200 mg/dL 121 Triglyceride <150 mg/dL 59 HDL Cholesterol >39 mg/dL 63 LDL Cholesterol <100 mg/dL 46 Non HDL Cholesterol <130 mg/dL 58 Fasting Time hrs 12 VLDL Cholesterol <30 mg/dL 12 TC:HDL Ratio <5.10 1.92 LDL:HDL Ratio <2.54 0.73 Creatinine, Ur Random (UCRR) 20 - 300 mg/dL 85.5 Albumin, Urine Random 0.0 - 23.0 mg/L 49.2 (H) Albumin/Creat Ratio 0 - 30 mg/g 58 (H) Hemoglobin A1C 4.3 - 5.6 % 6.3 (H) Estimated Average Glucose mg/dL 134 EKG RESULTS: nonspecific ST and T waves changes and sinus tachycardia Assessment and Plan 1. Controlled type 2 diabetes mellitus without complication, without long-term current use of insulin (HCC) - ICD9: 250.00, ICD10: E11.9 (primary diagnosis) Controlled. - Continue current medications - METFORMIN 1,000 MG TABLET - We discussed urine micro albumin. 2. Essential hypertension, benign - ICD9: 401.1, ICD10: I10 - fair control - Continue current medication(s) - Reviewed risks of HTN and principles of treatment - Goal of BP <130/80 - ECG COMPLETE W INTERPRETATION 3. Low back pain with sciatica, sciatica laterality unspecified, unspecified back pain laterality, unspecified chronicity - ICD9: 724.3, ICD10: M54.40 - UA DIP, URINE (POC)- Unremarkable. No protein. 4. Hyperlipidemia, unspecified hyperlipidemia type - ICD9: 272.4, ICD10: E78.5 - good control. Continue statin medication. Geoff Aguirre MD Referring Provider: SELF [[id number]] Allergies As of Date: 09/30/2018 Noted Allergy Reaction BLACK COHASH [Other] 02/26/2006 5 - Intolerance Comments: MIGRAINE HEADACHES CODEINE 01/18/2009 PERCODAN (OXYCODONE-ASPIRIN) 01/18/2009 Date Reviewed: 09/30/2018 Reviewed by: Leyla Montalvo LPN - Fully Assessed Reason for Visit: Medication Follow-up [270] Primary Visit Diagnosis:Controlled type 2 diabetes mellitus without complication, without long-term current use of insulin (HCC) [E11.9] Other Visit Diagnoses:Essential hypertension, benign [I10] Low back pain with sciatica, sciatica laterality unspecified, unspecified back pain laterality, unspecified chronicity [M54.40] Hyperlipidemia, unspecified hyperlipidemia type [E78.5] Order(s):metFORMIN (GLUCOPHAGE) 1,000 mg tabletTake 1 tablet by mouth twice daily with meals.Disp: 180 tabletRfl: 3 ECG COMPLETE W INTERPRETATION [ECG01] Order #: [id number] FUTURE UA DIP, URINE (POC) [[id number]] Order #: [id number] Prescriptions as of 09/30/2018 Sig: METFORMIN 1,000 MG TABLET Take 1 tablet by mouth twice * MELOXICAM 15 MG TABLET Take 1 tablet by mouth once d* LISINOPRIL 5 MG TABLET Take 1 tablet by mouth once d* ATORVASTATIN 10 MG TABLET Take 1 tablet by mouth once d* BLOOD SUGAR DIAGNOSTIC STRIPS Test blood sugar(s) 2 times d* TRAMADOL 50 MG TABLET Take 1 tablet by mouth twice * CYCLOBENZAPRINE 10 MG TABLET Take 1 tablet by mouth twice * GABAPENTIN 300 MG CAPSULE Take 1 capsule by mouth four * BLOOD SUGAR DIAGNOSTIC STRIPS Testing twice daily for uncon* LANCETS Test blood sugar(s) twice emerald* ECOTRIN LOW STRENGTH 81 MG TA* Take one(1) tablet daily. Medication notes this encounter GABAPENTIN 300 MG CAPSULE >> Leyla Montalvo LPN 09/30/2018 4:01 PM >> LEYLA MONTALVO LPN FriSep 30, 2018 4:01 PM Patient taking 1 tablet three times daily. Problem List As Of Date 09/30/2018 Noted Resolved Abnormal mammogram, unspecified [R92.8] INVALID FOR*06/12/2011 BENIGN HYPERTENSION [I10] INVALID FOR* Diabetes mellitus type 2, controlled, without c*INVALID FOR* Lumbago with sciatica [M54.40] INVALID FOR* S/P laminectomy [Z98.890] INVALID FOR* Osteoarthritis of hip [M16.9] INVALID FOR* More... Hyperlipidemia [E78.5] INVALID FOR* Malignant neoplasm of corpus uteri, except isth*INVALID FOR* Umbilical hernia without obstruction or gangren*INVALID FOR* Sensorineural hearing loss (SNHL) of left ear [*INVALID FOR* Prescriptions ordered this encounter Disp Refills Start End METFORMIN 1,000 MG TABLET 180 * 3 09/30/2018 Route: ORAL Sig: Take 1 tablet by mouth twice daily with meals. Medications Discontinued During This Encounter metFORMIN (GLUCOPHAGE) 1,000 mg tabl* 180 * 3 10/03/2017 09/30/2018 Route: ORAL Sig: Take 1 tablet by mouth twice daily with meals. Disc: Reason for discontinue is not on file. Disposition: Return in about 6 months (around 03/30/2019). Follow-up and Disposition History Recorded Encounter Status:Closed by GEOFF AGUIRRE MD on 09/30/18 ALBUMIN/CREAT RATIO Collected: 09/25/2018 Status: F Source: [place] 8:17 AM [facility] REPOSITORY TYPE CODE TESTS RESULT OUT OF REFERENCE UNITS RANGE LAB UCRR 20-300 mg/dL Creatinine,Ur 85.5 ine,Ran LAB UALBR 0.0-23.0 mg/L High Albumin Urine 49.2 Random LAB UALBCR 0-30 mg/g High Albumin/Creat 58 Ratio Result Comment: 30 to 300 mg/g indicates an increased risk for diabetic nephropathy. Greater than 300 mg/g is consistent with clinical nephropathy. (Am J Kidney Disease 1995, 25:107) Performed By: #### UACR #### [facility] [address] [place], [place] [address] CBC Collected: 09/25/2018 Status: F Source: [place] 8:16 AM [facility] REPOSITORY TYPE CODE TESTS RESULT OUT OF REFERENCE UNITS RANGE LAB WBC 3.70-11.00 k/uL WBC 6.18 LAB RBC 3.90-5.20 m/uL RBC 4.32 LAB HGB 11.5-15.5 g/dL Hemoglobin 12.3 LAB HCT 36.0-46.0 % Hematocrit 39.5 LAB MCV 80.0-100.0 fL MCV 91.4 LAB MCH 26.0-34.0 pG MCH 28.5 LAB MCHC 30.5-36.0 g/dL MCHC 31.1 LAB RDWCV 11.5-15.0 % RDW-CV 14.4 LAB PLTCT 150-400 k/uL Platelet Count 229 LAB MPV 9.0-12.7 fL MPV 12.5 LAB ABSNUC <0.01 k/uL Absolute nRBC <0.01 Performed By: #### CBC, CMP, LIPB, HBA1C #### [facility] [address] [place] [place], [place] [address] COMP METABOLIC PANEL Collected: 09/25/2018 Status: F Source: [place] 8:16 AM [facility] REPOSITORY TYPE CODE TESTS RESULT OUT OF REFERENCE UNITS RANGE LAB TP 6.3-8.0 g/dL Low Protein, Total 6.1 LAB ALB 3.9-4.9 g/dL Albumin 4.1 LAB CA 8.5-10.2 mg/dL Calcium, Total 9.0 LAB TBIL 0.2-1.3 mg/dL Bilirubin, Total 0.4 LAB ALKP 34-123 U/L Alkaline Phosphatase 64 LAB AST 13-35 U/L AST 19 LAB GLU 74-99 mg/dL Glucose High 113 Result Comment: The [place] Diabetes Association (ADA) provides guidance for cutoff values for fasting glucose and random glucose. The ADA defines fasting as no caloric intake for at least 8 hours. Fas ting plasma glucose results between 100 to 125 mg/dL indicate increased risk for diabetes (prediabetes). Fasting plasma glucose results greater than or equal to 126 mg/dL meet the criteria for diagnosis of diabetes. In the absence of unequivocal hyperglycemia, results should be confirmed by repeat testing. In a patient with classic symptoms of hyperglycemia or hyperglycemic crisis, random plasma glucose results greater than or equal to 200 mg/dL meet the criteria for diagnosis of diabetes. Reference: Standards of Medical Care in Diabetes 2016, [place] Diabetes Association. Diabetes Care. 2016.39(Suppl 1). LAB BUN 7-21 mg/dL BUN 15 LAB CRET 0.58-0.96 mg/dL Creatinine 0.62 LAB NA 136-144 mmol/L Sodium 141 LAB K 3.7-5.1 mmol/L Potassium 4.4 LAB CL 97-105 mmol/L Chloride High 106 LAB CO2 22-30 mmol/L CO2 22 LAB AGAP 9-18 mmol/L Anion Gap 13 LAB ALT 7-38 U/L ALT 21 LAB GFRAA eGFR- Amer. >60 LAB GFRNAA . eGFR-All Other Races >60 Result Comment: eGFR (Estimated GFR) Units of measure: mL/min/1.73 meters squared eGFR is derived from the reexpressed MDRD Study equation using the following parameters: serum creatinine, age, gender and race. The creatinine assay has been calibrated to be traceable to IDMS. An eGFR <60 mL/min/1.73m2 for >3 months is consistent with chronic kidney disease. Refer to KDOQI guidelines for clinical interpretation. In patients with unstable renal function, e.g. those with acute kidney injury, the eGFR may not accurately reflect actual GFR. Performed By: #### CBC, CMP, LIPB, HBA1C #### [facility] [address] [place], [place] [address] LIPID PANEL, BASIC Collected: 09/25/2018 Status: F Source: C[place] 8:16 AM [facility] REPOSITORY TYPE CODE TESTS RESULT OUT OF REFERENCE UNITS RANGE LAB CHOL <200 mg/dL Cholesterol 121 Result Comment: <200 mg/dL, Desirable 200-239 mg/dL, Borderline high >239 mg/dL, High LAB TRIGLY <150 mg/dL Triglyceride 59 Result Comment: <150 mg/dL, Normal 150-199 mg/dL, Borderline high 200-499 mg/dL, High >499 mg/dL, Very high LAB HDL >39 mg/dL HDL-Cholesterol 63 Result Comment: 40-59 mg/dL, Acceptable >59 mg/dL, High: Negative risk factor for coronary heart disease <40 mg/dL, Low: Positive risk factor for coronary heart disease LAB LDL <100 mg/dL LDL-Cholesterol 46 Result Comment: <100 mg/dL, Optimal 100-129 mg/dL, Near optimal/above optimal 130-159 mg/dL, Borderline high 160-189 mg/dL, High >189 mg/dL, Very high Secondary prevention optimal LDL Cholesterol levels are recommended to be < 70 mg/dL LAB NONHDL <130 mg/dL Non HDL Cholesterol 58 Result Comment: <130 mg/dL, Optimal 130-159 mg/dL, Near optimal/above optimal 160-189 mg/dL, Borderline high 190-219 mg/dL, High >219 mg/dL, Very high Secondary prevention optimal non HDL Cholesterol levels are recommended to be < 100 mg/dL LAB FT hrs Fasting Time 12 LAB VLDL <30 mg/dL VLDL Cholesterol 12 LAB TCHDL <5.10 TC:HDL Ratio 1.92 LAB LDLHDL <2.54 LDL:HDL Ratio 0.73 Result Comment: Reference: 1. National Cholesterol Education Program ATP III Guideline At-A-Glance Quick Desk Reference: National Heart, Lung, and Blood [place]. National Institutes of Health. 2001: NIH Publication No. 01-3305. 2. An International Atherosclerosis Society position paper: global recommendations for the management of dyslipidemia: executive summary, Atherosclerosis. 2014: 232(2):410-413. Performed By: #### CBC, CMP, LIPB, HBA1C #### [facility] [address], [place] [address] HEMOGLOBIN A1C Collected: 09/25/2018 Status: F Source: [place] 8:16 AM [facility] REPOSITORY TYPE CODE TESTS RESULT OUT OF REFERENCE UNITS RANGE LAB HGBA1C 4.3-5.6 % High Hemoglobin A1c 6.3 Result Comment: [place] Diabetes Association guidelines indicate that patients with HgbA1c in the range 5.7-6.4% are at increased risk for development of diabetes, and intervention by lifestyle modification may be beneficial. HgbA1c greater or equal to 6.5% is considered diagnostic of diabetes. LAB HBA0 mg/dL Est. Average Glucose 134 Result Comment: eAG: (Estimated average glucose) is a calculated value from HgbA1c and is herbicide service sales representative of the average blood glucose level in the last 2-3 month period. Performed By: #### CBC, CMP, LIPB, HBA1C #### [facility] [address] [place], [place] [address] PROGRESS Observed: 08/12/2018 Status: COMPLETED Source: [place] 7:21 AM [facility] REPOSITORY HNO ID: [id number] Author: Geoff Aguirre Service: (none) Author Type: Physician Type: Progress Notes Filed: 08/12/2018 9:08 AM Note Text: This note was created using [employer]. Subjective Sheila Gutierrez is a 68 year old female who presents with complaint of rash on the back of the neck for a month. Rash has been treated with terbinafine and doxycycline with partial relief of symptoms. No new exposures, recent contact with unusual or new material, any recent sore throats or illnesses or febrile illnesses. She had acute hearing loss of the left, and was on treated with a prednisone taper for hearing loss with no effect on the rash. Review of Systems Constitutional: Negative. HENT: Positive for hearing loss. Neurological: Negative. Objective BP 122/72 (BP Site: Left Arm, BP Position: Sitting, BP Cuff Size: Regular Adult) Pulse 88 Temp 36.2 ?C (97.1 ?F) (Left Tympanic) Resp 18 Wt 82.5 kg (181 lb 12.8 oz) BMI 33.25 kg/m? Physical Exam Constitutional: No distress. Lymphadenopathy: She has no cervical adenopathy. Skin: Residual maculopapules with postinflammatory pigmentation in the posterior neck above the hairline, in hair follicles. There were a few lesion on the left, more on the right posterior neck. No drainage or tenderness. Test results pertinent to today's visit were reviewed and discussed with the patient. Assessment and Plan 1. Folliculitis - ICD9: 704.8, ICD10: L73.9 (primary diagnosis) Extend a few more days. - DOXYCYCLINE MONOHYDRATE 100 MG TABLET 2. BENIGN HYPERTENSION - ICD9: 401.1, ICD10: I10 - good control 3. Need for vaccination - ICD9: V05.9, ICD10: Z23 - ADMIN OF INFLUENZA VACCINE - INFLUENZA SEASONAL HIGH DOSE AGE 65+ 4. Sensorineural hearing loss (SNHL) of left ear, unspecified hearing status on contralateral side - ICD9: 389.15, ICD10: H90.[address] Little. Geoff Aguirre MD CNOV Observed: 08/11/2018 Status: COMPLETED Source: [place] 3:40 PM [facility] REPOSITORY Office Visit (INTMWS) SHEILA GUTIERREZ ([id number]) 1950 F Date Time Provider Department 08/11/18 3:40 PM GEOFF AGUIRRE INTMWS During your visit today, we recorded the following information about you: Temperature Pulse Respiration Blood pressure 97.1 degrees 88/minute 18/minute 122/72 Weight 82.5 kg Leyla Montalvo LPN 08/11/2018 4:02 PM Signed Influenza Vaccine Documentation: ? Patient is identified by name and date of : Yes ? Patient is older than 6 months of age: Yes ? Patient denies a severe allergy to any vaccine component or to a previous dose of influenza vaccine: Yes FOR EGG ALLERGY CONCERNS, REFER TO PROVIDER. ? Denies allergy to gelatin, formaldehyde, thimerosol :Yes ? Patient is afebrile and not moderately or severely ill: Yes ? Does the patient have a history of Guillain ?Stoneham Syndrome (a severe paralytic illness): No ? Denies bone marrow transplant prior 6 months or solid organ transplant prior 3 months: Yes ? Denies a history of fainting after a prior injection or medical procedure? Yes If patient has fainted in the past, the CDC recommends sitting or lying down for 15 minutes after the vaccination. ? VIS sheet provided: Yes ? See Immunization Form in [facility] for details of immunizations administered today. If patient reports dizziness, vision changes or ringing in the ears post vaccination ? please have patient sit or lie down for 15 minutes. Geoff Aguirre MD 08/12/2018 9:08 AM Signed This note was created using [employer]. Subjective Sheila Gutierrez is a 68 year old female who presents with complaint of rash on the back of the neck for a month. Rash has been treated with terbinafine and doxycycline with partial relief of symptoms. No new exposures, recent contact with unusual or new material, any recent sore throats or illnesses or febrile illnesses. She had acute hearing loss of the left, and was on treated with a prednisone taper for hearing loss with no effect on the rash. Review of Systems Constitutional: Negative. HENT: Positive for hearing loss. Neurological: Negative. Objective BP 122/72 (BP Site: Left Arm, BP Position: Sitting, BP Cuff Size: Regular Adult) Pulse 88 Temp 36.2 ?C (97.1 ?F) (Left Tympanic) Resp 18 Wt 82.5 kg (181 lb 12.8 oz) BMI 33.25 kg/m? Physical Exam Constitutional: No distress. Lymphadenopathy: She has no cervical adenopathy. Skin: Residual maculopapules with postinflammatory pigmentation in the posterior neck above the hairline, in hair follicles. There were a few lesion on the left, more on the right posterior neck. No drainage or tenderness. Test results pertinent to today's visit were reviewed and discussed with the patient. Assessment and Plan 1. Folliculitis - ICD9: 704.8, ICD10: L73.9 (primary diagnosis) Extend a few more days. - DOXYCYCLINE MONOHYDRATE 100 MG TABLET 2. BENIGN HYPERTENSION - ICD9: 401.1, ICD10: I10 - good control 3. Need for vaccination - ICD9: V05.9, ICD10: Z23 - ADMIN OF INFLUENZA VACCINE - INFLUENZA SEASONAL HIGH DOSE AGE 65+ 4. Sensorineural hearing loss (SNHL) of left ear, unspecified hearing status on contralateral side - ICD9: 389.15, ICD10: H90.[address] Little. Geoff Aguirre MD Referring Provider: SARAH BUTTS ([facility]) [[id number]] Allergies As of Date: 08/11/2018 Noted Allergy Reaction BLACK COHASH [Other] 02/26/2006 5 - Intolerance Comments: MIGRAINE HEADACHES CODEINE 01/18/2009 PERCODAN (OXYCODONE-ASPIRIN) 01/18/2009 Date Reviewed: 08/11/2018 Reviewed by: Leyla Montalvo LPN - Fully Assessed Reason for Visit: Recheck [92] Primary Visit Diagnosis:Folliculitis [L73.9] Other Visit Diagnoses:BENIGN HYPERTENSION [I10] Need for vaccination [Z23] Sensorineural hearing loss (SNHL) of left ear, unspecified hearing status on contralateral side [H90.5] Order(s):ADMIN OF INFLUENZA VACCINE [[id number]] Order #: [id number]: 1 INFLUENZA SEASONAL HIGH DOSE AGE 65+ [[id number]] Order #: [id number] doxycycline monohydrate 100 mg tabletTake 1 tablet by mouth twice daily for 5 days. Additional 5 days.Disp: 10 tabletRfl: 0 Prescriptions as of 08/11/2018 Sig: DOXYCYCLINE MONOHYDRATE 100 M* Take 1 tablet by mouth twice * TERBINAFINE HCL 1 % TOPICAL C* Apply 1 application to affect* MELOXICAM 15 MG TABLET Take 1 tablet by mouth once d* ATORVASTATIN 10 MG TABLET Take 1 tablet by mouth once d* METFORMIN 1,000 MG TABLET Take 1 tablet by mouth twice * LISINOPRIL 5 MG TABLET Take 1 tablet by mouth once d* BLOOD SUGAR DIAGNOSTIC STRIPS Test blood sugar(s) 2 times d* TRAMADOL 50 MG TABLET Take 1 tablet by mouth twice * CYCLOBENZAPRINE 10 MG TABLET Take 1 tablet by mouth twice * GABAPENTIN 300 MG CAPSULE Take 1 capsule by mouth four * BLOOD SUGAR DIAGNOSTIC STRIPS Testing twice daily for uncon* LANCETS Test blood sugar(s) twice emerald* ECOTRIN LOW STRENGTH 81 MG TA* Take one(1) tablet daily. DOXYCYCLINE MONOHYDRATE 100 M* Take 1 tablet by mouth twice * Medication notes this encounter ECOTRIN LOW STRENGTH 81 MG TABLET,ENTERIC COATED >> Leyla Montalvo LPN 08/11/2018 3:42 PM >> LEYLA MONTALVO LPN Aug 11, 2018 3:42 PM Patient taking as written. Problem List As Of Date 08/11/2018 Noted Resolved Abnormal mammogram, unspecified [R92.8] INVALID FOR*06/12/2011 BENIGN HYPERTENSION [I10] INVALID FOR* Diabetes mellitus type 2, controlled, without c*INVALID FOR* Lumbago with sciatica [M54.40] INVALID FOR* S/P laminectomy [Z98.890] INVALID FOR* Osteoarthritis of hip [M16.9] INVALID FOR* More... Hyperlipidemia [E78.5] INVALID FOR* Malignant neoplasm of corpus uteri, except isth*INVALID FOR* Umbilical hernia without obstruction or gangren*INVALID FOR* Sensorineural hearing loss (SNHL) of left ear [*INVALID FOR* Visit Notes: >> Leyla Owens Aug 11, 2018 3:45 PM Status: Signed Influenza Vaccine Documentation: ? Patient is identified by name and date of : Yes ? Patient is older than 6 months of age: Yes ? Patient denies a severe allergy to any vaccine component or to a previous dose of influenza vaccine: Yes FOR EGG ALLERGY CONCERNS, REFER TO PROVIDER. ? Denies allergy to gelatin, formaldehyde, thimerosol :Yes ? Patient is afebrile and not moderately or severely ill: Yes ? Does the patient have a history of Guillain ?Stoneham Syndrome (a severe paralytic illness): No ? Denies bone marrow transplant prior 6 months or solid organ transplant prior 3 months: Yes ? Denies a history of fainting after a prior injection or medical procedure? Yes If patient has fainted in the past, the CDC recommends sitting or lying down for 15 minutes after the vaccination. ? VIS sheet provided: Yes ? See Immunization Form in [employer] for details of immunizations administered today. If patient reports dizziness, vision changes or ringing in the ears post vaccination ? please have patient sit or lie down for 15 minutes. Prescriptions ordered this encounter Disp Refills Start End DOXYCYCLINE MONOHYDRATE 100 MG TABLET 10 t* 0 08/11/2018 08/16/2018 Route: ORAL Sig: Take 1 tablet by mouth twice daily for 5 days. Additional 5 days. Encounter Status:Closed by GEOFF AGUIRRE MD on 08/12/18 CREATININE FINGERSTICK Collected: 08/07/2018 Status: F Source: [place] 11:22 AM [facility] TYPE CODE TESTS RESULT OUT OF RANGE REFERENCE UNITS LAB L9100.0210 0.55-1.02 mg/dL Normal CREATININE WB < 0.6 LAB L9100.0220 >60 mL/min EGFR WB Normal > 60.0000 Performed By: #### L9100.0200 #### [facility] Point of Care [address] [place] [address]. [place] [address] BRAIN W/WO CONTRAST Observed: 08/07/2018 Status: F Source: [place] 11:13 AM [facility] Imaging Services [address] [place] [address] Brain W/WO Contrast MR#: [id number] Acct: [id number] Name: SHEILA GUTIERREZ Rep #: [id number] : 1950 F 68 From: Jonathan De Luna MD PCP: CIRO MORFIN [facility] Status: REG CLI Study: Brain W/WO Contrast Date of Exam: 08/07/18 Exam# [id number] Ordering Dr: Kvng Little MD STUDY: MRI BRAIN WITH AND WITHOUT CONTRAST (ATTENTION INTERNAL AUDITORY CANALS - I.A.C.'s) REASON FOR EXAM: Female, 68 years old. Left ear hearing loss TECHNIQUE: Standardized multiplanar fat and water weighted pulse sequences were obtained. 17 ml of Dotarem contrast material was administered intravenously for the contrast portion of the examination. COMPARISON: None. FINDINGS: Normal bilateral temporal bones. Normal bilateral internal auditory canals. There is no demonstrated intracanalicular or cisternal vestibular schwannoma (acoustic neuroma). There is no enhancement of the bilateral VIIth or VIIIth cranial nerves. Normal bilateral cochlea, vestibules and semicircular canals. Normal size of the ventricles and extra-axial spaces for the patient's age. Mild periventricular white matter ischemic changes without evidence for acute infarct. Mild chronic ischemic changes within the yanick. Normal bilateral basal ganglia. Normal thalami. Normal flow voids within the major intracranial circulation suggesting patency by spin echo criteria. Normal venous enhancement. There is no enhancing intra-axial or extra-axial abnormality. There is no extra-axial fluid accumulation. Partial empty sella deformity. Normal, infundibular stalk, optic chiasm and hypothalamus. Normal tectal plate and pineal gland. Normal midbrain, and medulla. Normal cerebellum. Normal basal cisterns. No demonstrated orbital abnormality, within the constraints of a routine brain study. Normal visualized paranasal sinuses. Normal calvarium and skull base. Normal visualized soft tissue structures. Normal visualized upper cervical spine. MRI/Brain W/WO Contrast IMPRESSION: Mild periventricular white matter ischemic changes and chronic ischemic changes within the yanick without evidence for acute infarct. No evidence for acoustic or vestibular schwannoma Electronically Signed: Jonathan De Luna MD at 16:56 EDT , Service support , CC: Oswaldo Little MD; CIRO MORFIN [facility]; Geoff Aguirre MD Haul Driver: Signed WOUND Observed: 2018 Status: F Source: [place] CULTURE/[place]AIN 1:00 PM [facility] REPOSITORY Sp. Request/Comment: - Swab Smear Result - No organisms seen No Polymorphonuclear Leukocytes Few Red Blood Cells Culture Result - Rare Staphylococcus aureus --> ABNORMAL ALERT ORGANISM: Staphylococcus aureus METHOD: Minimum inhibitory concentration(Vitek) Antibiotic Interp SHAMAR Status Erythromycin SUSCEPTIBLE <=0.25 F Clindamycin SUSCEPTIBLE 0.25 F Tetracycline SUSCEPTIBLE <=1 F Vancomycin SUSCEPTIBLE <=0.5 F Oxacillin SUSCEPTIBLE 0.5 F Oxacillin susceptible staphylococci are susceptible to other penicillinase stable penicillins, beta lactam/beta lactamase inhibitor combinations, anti staphyloccal cephems, and carbapenems. Trimeth sulfameth SUSCEPTIBLE <=10 F Gentamicin SUSCEPTIBLE <=0.5 F Rifampin SUSCEPTIBLE <=0.5 F Rifampin should not be used alone for antimicrobial therapy. Doxycycline SUSCEPTIBLE <=0.5 F Performed By: #### WCUL #### [facility] [address] [place], [place] [address] PROGRESS Observed: 2018 Status: COMPLETED Source: [place] 12:00 PM [facility] REPOSITORY HNO ID: [id number] Author: Sarah (Weapons Officer) Service: (none) Author Type: Nurse Practitioner Type: Progress Notes Filed: 2018 12:46 PM Note Text: Subjective HPI HPI Sheila Gutierrez is a 68 year old female who presents today for CC of spreading rash on back of neck. This started 2-3 weeks ago. Has tried a round of prednisone with ENT, did not help. Symptoms are worsened by nothing known. Risk factors none at this time. .Patient presents with: Rash: blistery rash on back of neck x 2-3 weeks PAST MEDICAL HISTORY Diagnosis Date - Abnormal Papanicolaou smear of vagina and vaginal HPV - BENIGN HYPERTENSION 01/23/2009 - Lumbago with sciatica 04/29/2011 Left - Malignant neoplasm of corpus uteri (HCC) 03/03/2015 - Malignant neoplasm of corpus uteri, except isthmus (HCC) 03/21/2015 - Osteoarthritis of hip 06/30/2014 Left. - PMH - PAST MEDICAL HISTORY OF 11/2008 calcifications in the right breast - PMH - PAST MEDICAL HISTORY OF bowel problems due to artificial sweeteners - S/P laparoscopic hysterectomy 04/10/2015 ENEDINA, BSO, pelvic lymphadenectomy - Snoring - Synovial cyst of lumbar facet joint 04/29/2011 Left - Type II or unspecified type diabetes mellitus without mention of complication, not stated as uncontrolled 03/01/2009 - Umbilical hernia without obstruction or gangrene 01/13/2018 PAST SURGICAL HISTORY Procedure Laterality Date - COLONOSCOP W/ OR W/O [facility] SPEC January 1998 Colonoscopy - COLONOSCOP W/ OR W/O [facility] SPEC Colonoscopy - LAMINECTOMY,>2 SGMT,LUMBAR - LAP HYSTERECTOMY FOR UTERUS 250G OR LESS 04/10/2015 bilateral salpingo-oophorectomy, cystoscopy, bilateral pelvic lymphadenectomy. - PAST SURGICAL HISTORY OF 2001 Right breast biopsy - REMOVAL GALLBLADDER Cholecystectomy, laparoscopic - STEREO LOC FOR CORE BRST BX LT 12-27-08 LEFT ALLERGIES Black Cohash [Other]; Codeine; Percodan [Oxycodone-Aspirin] MEDICATIONS meloxicam (MOBIC) 15 mg tablet Take 1 tablet by mouth once daily as needed (joint pain). atorvastatin (LIPITOR) 10 mg tablet Take 1 tablet by mouth once daily. metFORMIN (GLUCOPHAGE) 1,000 mg tablet Take 1 tablet by mouth twice daily with meals. lisinopril (ZESTRIL, PRINIVIL) 5 mg tablet Take 1 tablet by mouth once daily. blood sugar diagnostic (FREESTYLE LITE STRIPS) test strip Test blood sugar(s) 2 times daily. Dx: Type 2 DM - Controlled E11.9 Insulin: No traMADol (ULTRAM) 50 mg tablet Take 1 tablet by mouth twice daily as needed for Pain. Dr. Raines cyclobenzaprine (FLEXERIL) 10 mg tablet Take 1 tablet by mouth twice daily as needed for Muscle Spasm. Dr. Raines gabapentin (NEURONTIN) 300 mg capsule Take 1 capsule by mouth four times daily. blood sugar diagnostic (BLOOD GLUCOSE TEST) test strip Testing twice daily for uncontrolled blood sugars 250.00 non insulin dependent.Use as instructed Lancets lancets Test blood sugar(s) twice times daily. Dx: 250.00. Insulin: No aspirin(ECOTRIN LOW STRENGTH 81 MG TAB) Take one(1) tablet daily. FAMILY HISTORY Problem Relation Age of Onset - Cancer Father lung, - Diabetes Father - Diabetes Sister - Diabetes Paternal Grandfather - Emphysema Father - Arthritis Mother - Osteoporosis Mother - Hypertension Mother - Hypertension Sister - Lipids Sister Social History Substance Use Topics - Smoking status: Former Smoker Packs/day: 1.00 Years: 20.00 Types: Cigarettes Quit date: 11/10/1977 - Smokeless tobacco: Never Used - Alcohol use Yes Comment: rare Review of Systems Constitutional: Negative for chills and fever. Skin: Positive for itching and rash. Objective Blood pressure 148/96, pulse 78, temperature 36.3 ?C (97.3 ?F), temperature source Tympanic, resp. rate 16, weight 83 kg (183 lb). Component Latest Ref Rng AND Units 08/16/2017 Glucose 74 - 99 mg/dL 107 (H) BUN 7 - 21 mg/dL 13 Creatinine 0.58 - 0.96 mg/dL 0.53 (L) Sodium 136 - 144 mmol/L 139 Potassium 3.7 - 5.1 mmol/L 4.9 Chloride 97 - 105 mmol/L 101 CO2 22 - 30 mmol/L 24 Anion Gap 9 - 18 mmol/L 14 Calcium 8.5 - 10.2 mg/dL 9.1 eGFR- >60 eGFR-All Other Races . >60 Physical Exam Constitutional: She is oriented to person, place, and time and well-developed, well-nourished, and in no distress. Non-toxic appearance. She does not have a sickly appearance. No distress. HENT: Head: Normocephalic and atraumatic. Neck: Pulmonary/Chest: Effort normal. No accessory muscle usage. No respiratory distress. Neurological: She is alert and oriented to person, place, and time. Skin: She is not diaphoretic. ASSESSMENT/PLAN: 1. Skin lesion - ICD9: 709.9, ICD10: L98.9 (primary diagnosis) suspicious for tinea, other scattered lesions do not appear tinea like -use medication as prescribed -follow up if symptoms persist, worsen, change - TERBINAFINE HCL 1 % TOPICAL CREAM 2. Skin infection - ICD9: 686.9, ICD10: L08.9 - Begin treatment with doxycycline - No lymphangetic streaking, this was defined for patient to watch for and to seek medical care immediately if appears - Follow up for recheck in 7-10 days, sooner if worsening signs of infection occur -will call results of culture -will schedule f/u with pcp for recheck - DOXYCYCLINE MONOHYDRATE 100 MG TABLET Prescription instructions reviewed with patient as applicable. Patient advised if symptoms do not improve or if symptoms worsen sooner, to contact the office for further evaluation by their primary care physician. Potential red flag symptoms discussed with the patient. Reviewed appropriate action plan to take if red flag symptoms occur. Patient agreeable to treatment plan. Sarah Butts APRN.ENDLESS BELT FINISHER CNOV Observed: 2018 Status: COMPLETED Source: CADE 11:45 AM [facility] REPOSITORY Office Visit (UCWSTR) SHEILA GUTIERREZ ([id number]) 1950 F Date Time Provider Department 08/03/18 11:45 AM SARAH BUTTS (BAM) WSTR During your visit today, we recorded the following information about you: Temperature Pulse Respiration Blood pressure 97.3 degrees 78/minute 16/minute 148/96 Weight 83 kg Sarah Butts APRN.CNP 2018 12:46 PM Signed Subjective HPI HPI Sheila Gutierrez is a 68 year old female who presents today for CC of spreading rash on back of neck. This started 2-3 weeks ago. Has tried a round of prednisone with ENT, did not help. Symptoms are worsened by nothing known. Risk factors none at this time. .Patient presents with: Rash: blistery rash on back of neck x 2-3 weeks PAST MEDICAL HISTORY Diagnosis Date - Abnormal Papanicolaou smear of vagina and vaginal HPV - BENIGN HYPERTENSION 01/23/2009 - Lumbago with sciatica 04/29/2011 Left - Malignant neoplasm of corpus uteri (HCC) 03/03/2015 - Malignant neoplasm of corpus uteri, except isthmus (HCC) 03/21/2015 - Osteoarthritis of hip 06/30/2014 Left. - PMH - PAST MEDICAL HISTORY OF 11/2008 calcifications in the right breast - PMH - PAST MEDICAL HISTORY OF bowel problems due to artificial sweeteners - S/P laparoscopic hysterectomy 04/10/2015 ENEDINA, BSO, pelvic lymphadenectomy - Snoring - Synovial cyst of lumbar facet joint 04/29/2011 Left - Type II or unspecified type diabetes mellitus without mention of complication, not stated as uncontrolled 03/01/2009 - Umbilical hernia without obstruction or gangrene 01/13/2018 PAST SURGICAL HISTORY Procedure Laterality Date - COLONOSCOP W/ OR W/O BRSH SPEC January 1998 Colonoscopy - COLONOSCOP W/ OR W/O BRSH SPEC Colonoscopy - LAMINECTOMY,>2 SGMT,LUMBAR - LAP HYSTERECTOMY FOR UTERUS 250G OR LESS 04/10/2015 bilateral salpingo-oophorectomy, cystoscopy, bilateral pelvic lymphadenectomy. - PAST SURGICAL HISTORY OF 2001 Right breast biopsy - REMOVAL GALLBLADDER Cholecystectomy, laparoscopic - STEREO LOC FOR CORE BRST BX LT 12-27-08 LEFT ALLERGIES Black Cohash [Other]; Codeine; Percodan [Oxycodone-Aspirin] MEDICATIONS meloxicam (MOBIC) 15 mg tablet Take 1 tablet by mouth once daily as needed (joint pain). atorvastatin (LIPITOR) 10 mg tablet Take 1 tablet by mouth once daily. metFORMIN (GLUCOPHAGE) 1,000 mg tablet Take 1 tablet by mouth twice daily with meals. lisinopril (ZESTRIL, PRINIVIL) 5 mg tablet Take 1 tablet by mouth once daily. blood sugar diagnostic (FREESTYLE LITE STRIPS) test strip Test blood sugar(s) 2 times daily. Dx: Type 2 DM - Controlled E11.9 Insulin: No traMADol (ULTRAM) 50 mg tablet Take 1 tablet by mouth twice daily as needed for Pain. Dr. Raines cyclobenzaprine (FLEXERIL) 10 mg tablet Take 1 tablet by mouth twice daily as needed for Muscle Spasm. Dr. Raines gabapentin (NEURONTIN) 300 mg capsule Take 1 capsule by mouth four times daily. blood sugar diagnostic (BLOOD GLUCOSE TEST) test strip Testing twice daily for uncontrolled blood sugars 250.00 non insulin dependent.Use as instructed Lancets lancets Test blood sugar(s) twice times daily. Dx: 250.00. Insulin: No aspirin(ECOTRIN LOW STRENGTH 81 MG TAB) Take one(1) tablet daily. FAMILY HISTORY Problem Relation Age of Onset - Cancer Father lung, - Diabetes Father - Diabetes Sister - Diabetes Paternal Grandfather - Emphysema Father - Arthritis Mother - Osteoporosis Mother - Hypertension Mother - Hypertension Sister - Lipids Sister Social History Substance Use Topics - Smoking status: Former Smoker Packs/day: 1.00 Years: 20.00 Types: Cigarettes Quit date: 11/10/1977 - Smokeless tobacco: Never Used - Alcohol use Yes Comment: rare Review of Systems Constitutional: Negative for chills and fever. Skin: Positive for itching and rash. Objective Blood pressure 148/96, pulse 78, temperature 36.3 ?C (97.3 ?F), temperature source Tympanic, resp. rate 16, weight 83 kg (183 lb). Component Latest Ref Rng AND Units 08/16/2017 Glucose 74 - 99 mg/dL 107 (H) BUN 7 - 21 mg/dL 13 Creatinine 0.58 - 0.96 mg/dL 0.53 (L) Sodium 136 - 144 mmol/L 139 Potassium 3.7 - 5.1 mmol/L 4.9 Chloride 97 - 105 mmol/L 101 CO2 22 - 30 mmol/L 24 Anion Gap 9 - 18 mmol/L 14 Calcium 8.5 - 10.2 mg/dL 9.1 eGFR- >60 eGFR-All Other Races . >60 Physical Exam Constitutional: She is oriented to person, place, and time and well-developed, well-nourished, and in no distress. Non-toxic appearance. She does not have a sickly appearance. No distress. HENT: Head: Normocephalic and atraumatic. Neck: Pulmonary/Chest: Effort normal. No accessory muscle usage. No respiratory distress. Neurological: She is alert and oriented to person, place, and time. Skin: She is not diaphoretic. ASSESSMENT/PLAN: 1. Skin lesion - ICD9: 709.9, ICD10: L98.9 (primary diagnosis) suspicious for tinea, other scattered lesions do not appear tinea like -use medication as prescribed -follow up if symptoms persist, worsen, change - TERBINAFINE HCL 1 % TOPICAL CREAM 2. Skin infection - ICD9: 686.9, ICD10: L08.9 - Begin treatment with doxycycline - No lymphangetic streaking, this was defined for patient to watch for and to seek medical care immediately if appears - Follow up for recheck in 7-10 days, sooner if worsening signs of infection occur -will call results of culture -will schedule f/u with pcp for recheck - DOXYCYCLINE MONOHYDRATE 100 MG TABLET Prescription instructions reviewed with patient as applicable. Patient advised if symptoms do not improve or if symptoms worsen sooner, to contact the office for further evaluation by their primary care physician. Potential red flag symptoms discussed with the patient. Reviewed appropriate action plan to take if red flag symptoms occur. Patient agreeable to treatment plan. Sarah Butts APRN.ENDLESS BELT FINISHER Sarah Butts APRN.ENDLESS BELT FINISHER 2018 12:22 PM Signed ASSESSMENT/PLAN: 1. Skin lesion - ICD9: 709.9, ICD10: L98.9 (primary diagnosis) -use medication as prescribed -follow up if symptoms persist, worsen, change - TERBINAFINE HCL 1 % TOPICAL CREAM 2. Skin infection - ICD9: 686.9, ICD10: L08.9 - Begin treatment with doxycycline - No lymphangetic streaking, this was defined for patient to watch for and to seek medical care immediately if appears - Follow up for recheck in 7-10 days, sooner if worsening signs of infection occur - DOXYCYCLINE MONOHYDRATE 100 MG TABLET Referring Provider: SELF [[id number]] Allergies As of Date: 2018 Noted Allergy Reaction BLACK COHASH [Other] 02/26/2006 5 - Intolerance Comments: MIGRAINE HEADACHES CODEINE 01/18/2009 PERCODAN (OXYCODONE-ASPIRIN) 01/18/2009 Date Reviewed: 2018 Reviewed by: Nancy Nuñez Ma - Fully Assessed Reason for Visit: Rash [1087] Cmt: blistery rash on back of neck x 2-3 weeks Primary Visit Diagnosis:Skin lesion [L98.9] Other Visit Diagnosis:Skin infection [L08.9] Order(s):doxycycline monohydrate 100 mg tabletTake 1 tablet by mouth twice daily for 10 days.Disp: 20 tabletRfl: 0 terbinafine HCl (LAMISIL) 1 % creamApply 1 application to affected area twice daily for 14 days.Disp: 24 gRfl: 0 WOUND CULTURE AND GRAM STAIN [SQWCUL] Order #: [id number] Prescriptions as of 2018 Sig: MELOXICAM 15 MG TABLET Take 1 tablet by mouth once d* ATORVASTATIN 10 MG TABLET Take 1 tablet by mouth once d* METFORMIN 1,000 MG TABLET Take 1 tablet by mouth twice * LISINOPRIL 5 MG TABLET Take 1 tablet by mouth once d* BLOOD SUGAR DIAGNOSTIC STRIPS Test blood sugar(s) 2 times d* TRAMADOL 50 MG TABLET Take 1 tablet by mouth twice * CYCLOBENZAPRINE 10 MG TABLET Take 1 tablet by mouth twice * GABAPENTIN 300 MG CAPSULE Take 1 capsule by mouth four * BLOOD SUGAR DIAGNOSTIC STRIPS Testing twice daily for uncon* LANCETS Test blood sugar(s) twice emerald* ECOTRIN LOW STRENGTH 81 MG TA* Take one(1) tablet daily. DOXYCYCLINE MONOHYDRATE 100 M* Take 1 tablet by mouth twice * TERBINAFINE HCL 1 % TOPICAL C* Apply 1 application to affect* Problem List As Of Date 2018 Noted Resolved Abnormal mammogram, unspecified [R92.8] INVALID FOR*06/12/2011 BENIGN HYPERTENSION [I10] INVALID FOR* Diabetes mellitus type 2, controlled, without c*INVALID FOR* Lumbago with sciatica [M54.40] INVALID FOR* S/P laminectomy [Z98.890] INVALID FOR* Osteoarthritis of hip [M16.9] INVALID FOR* More... Hyperlipidemia [E78.5] INVALID FOR* Malignant neoplasm of corpus uteri, except isth*INVALID FOR* Umbilical hernia without obstruction or gangren*INVALID FOR* Other instructions from your clinician: ASSESSMENT/PLAN: 1. Skin lesion - ICD9: 709.9, ICD10: L98.9 (primary diagnosis) -use medication as prescribed -follow up if symptoms persist, worsen, change - TERBINAFINE HCL 1 % TOPICAL CREAM 2. Skin infection - ICD9: 686.9, ICD10: L08.9 - Begin treatment with doxycycline - No lymphangetic streaking, this was defined for patient to watch for and to seek medical care immediately if appears - Follow up for recheck in 7-10 days, sooner if worsening signs of infection occur - DOXYCYCLINE MONOHYDRATE 100 MG TABLET Prescriptions ordered this encounter Disp Refills Start End DOXYCYCLINE MONOHYDRATE 100 MG TABLET 20 t* 0 2018 08/13/2018 Route: ORAL Sig: Take 1 tablet by mouth twice daily for 10 days. TERBINAFINE HCL 1 % TOPICAL CREAM 24 g 0 2018 08/17/2018 Route: TOPICAL Sig: Apply 1 application to affected area twice daily for 14 days. Encounter Status:Closed by SARAH BUTTS CNP on 08/03/18 CNCO Observed: 07/02/2018 Status: COMPLETED Source: [place]AND 11:52 AM [facility] [place] REPOSITORY HNO ID: [id number] Author: Mammography Coordinator Service: (none) Author Type: Physician Type: Letter Filed: 07/06/2018 11:31 PM Note Text: July 02, 2018 PID: [id number] Sheila Gutierrez [address] [place] [address] Dear Ms. Gutierrez, We are pleased to inform you that the results of your recent breast imaging exam on 07/02/2018 are normal. Early detection of cancer is very important. We also understand recommendations regarding breast cancer screening are controversial. Please discuss with your primary care provider which strategy is best for you and whether a mammogram is right for you. Your imaging studies and report will be kept on file at [facility] as part of your permanent medical record and are available for your continuing care. Thank you for allowing us to help in meeting your health care needs. Sincerely, Dr. Fraire Interpreting Radiologist [facility] (Normal over 40) [facility] SCREENING Observed: 07/02/2018 Status: F Source: CADE 11:40 AM [facility] REPOSITORY * * *Final Report* * * DATE OF EXAM: Jul 02 2018 11:40AM [facility] [id number] - [facility] SCREENING / PROCEDURE REASON: Encounter for screening mammogram for malignant neoplasm of breast * * * * Physician Interpretation * * * * RESULT: #[id number] - [facility] SCREENING BILATERAL DIGITAL SCREENING MAMMOGRAM WITH CAD: 07/02/2018 HISTORY: Encounter For Screening Mammogram For Malignant Neoplasm Of Breast /Screening Mammogram - patient reports NO breast symptoms /Priors available for comparison. RESULT: TECHNIQUE: The study was acquired using full field digital technology and interpreted from soft copy. Current study was also evaluated with a Computer Aided Detection (CAD). Comparison is made to exams dated: 05/09/2016 mammogram and 05/08/2015 mammogram - [facility]. There are scattered fibroglandular elements in both breasts. There are benign appearing calcifications in both breasts. There also are biopsy clips in the right breast. Additionally, there is a biopsy clip in the left breast. No significant masses, calcifications, or other findings are seen in either breast. There has been no significant interval change. IMPRESSION: BENIGN FINDING There is no mammographic evidence of malignancy.A 1 year screening mammogram is recommended. Moira Fraire M.D., lp/penrad:07/02/2018 11:52:25 Locksmith Helper: Linda JARAMILLO(Yadira)(Dora), [facility] letter sent: Normal over 40 Mammogram BI-RADS: 2 Benign finding Haul Driver: Sami Transcribe Date/Time: Jul 02 2018 11:04A Dictated by: MOIRA FRAIRE MD This examination was interpreted and the report reviewed and electronically signed by: MOIRA FRAIRE MD on Jul 02 2018 11:52AM EST [id number] Observed: 06/29/2018 Status: COMPLETED Source: CADE 10:20 AM [facility] REPOSITORY Visit (SP) Office ([facility]) SHEILA GUTIERREZ ([id number]) 1950 F Date Time Provider Department 06/29/18 10:20 AM JEYSON KIRAN ([facility]) GYN During your visit today, we recorded the following information about you: Temperature Pulse Respiration Blood pressure 98.6 degrees 90/minute 18/minute 148/72 Weight 83.1 kg Jeyson Kiran APRN.ENDLESS BELT FINISHER 06/29/2018 2:56 PM Signed DATE OF SERVICE: 06/29/18 PROBLEM: Sheila Gutierrez presents for follow-up of endometrial cancer. DIAGNOSIS: 1A grade 2 (foci of grade 3) endometrial adenocarcinoma, 3.5 cm tumor size, 1/15 mm myometrial invasion, negative LVSI. MSI testing negative PRIOR THERAPY AND DATE: 1) 04/10/15 - Single port total laparoscopic hysterectomy, bilateral salpingo-oophorectomy, cystoscopy, bilateral pelvic lymphadenectomy 2) 2100 cGy was delivered in 3 weekly fractions over 14 days to the vaginal cuff using I-192 through a multichannel vaginal cylinder from 06/13/15 through 06/27/15. LAST VISIT: 01/13/18 LAST CHEST X-RAY: 03/28/15 - No active cardiopulmonary disease CT Chest 12/31/16 ([facility]) IMPRESSION: No pulmonary nodule is seen. CA 125 (U/mL) Date Value 03/28/2015 33 LAST COLONOSCOPY: 2009 LAST MAMMOGRAM: 05/16/17 - negative SUBJECTIVE/INTERVAL HISTORY: Sheila Gutierrez reports that she feels well. Occasional pink spotting with dilator use; notes a tightness midway, but can ultimately push beyond it. Normal bowel and bladder function. Hernia noted, but not bothersome. Not currently sexually active, but uses dilator 2 x a week. No shortness of breath, cough, or chest pain. No dysuria, gross hematuria, urinary frequency, urinary urgency, or incontinence. Her ECOG performance status is zero (fully active, able to carry on all pre-disease performance without restriction). Was recently thrown from a horse but has recovered. Noted some achiness of her tailbone that preceded the accident that has since resolved. OBJECTIVE: VITALS: BP 148/72 Pulse 90 Temp (Src) 98.6 (Tympanic) Resp 18 Wt 183 lb 1.6 oz (83.1kg) SpO2 98% GENERAL: Patient is a well developed, well nourished, obese female. She is alert, oriented, pleasant and cooperative. SKIN: Color, texture, turgor normal. No rashes or lesions. HEENT: Normocephalic, atraumatic, mucus membranes moist and no lesions NECK: Supple, no adenopathy LUNGS: Clear to auscultation bilaterally. HEART: Regular rate and rhythm, no murmurs. BACK: No CVA tenderness or gross deformities. ABDOMEN: Abdomen soft, non-tender, no hepatosplenomegaly. NO masses. Small umbilical hernia ~ 2-3 cm, reducible, NT PELVIC: External genitalia, anus and urethral meatus are normal in appearance and without lesions. Vagina with mild scarring upper 1/3. Vagina with radiation telangiectasias. NO lesions. No bleeding currently. Bimanual pelvic and RV examination negative for urethral, bladder or pelvic masses. No cul-de-sac nodularity. Uterus, cervix, adnexa surgically absent. NO rectal masses. LOWER EXTREMITIES: No pitting edema, no palpable cords and no skin changes. ASSESSMENT: 1. 67yo with 1A grade 2 (foci of grade 3) endometrial adenocarcinoma, 3.5 cm tumor size, 1/15 mm myometrial invasion, negative LVSI, RODOLFO at 36 months from radiation 2. Lung nodule- no longer seen on CT 3. Umbilical Hernia- stable PLAN: 1. Exam normal and findings reviewed. Continue surveillance. CT chest stable x ~ 2 years now (nodules noted on pre op imaging), so no further imaging needed in absence of symptoms. 2. Hernia warnings reviewed. Continues to Decline surgical referral at this time. 3. Continue dilator use. 4. Signs of recurrence reviewed. 5. RTC [address] Stafford. To call in the interim with questions or concerns. Jeyson Kiran APRN.ENDLESS BELT FINISHER A letter and a copy of this office note were sent to: MD Geoff Silva MD (PCP) Referring Provider: GRACE STAFFORD [[id number]] Allergies As of Date: 06/29/2018 Noted Allergy Reaction BLACK COHASH [Other] 02/26/2006 5 - Intolerance Comments: MIGRAINE HEADACHES CODEINE 01/18/2009 PERCODAN (OXYCODONE-ASPIRIN) 01/18/2009 Date Reviewed: 06/29/2018 Reviewed by: Jeyson ([facility]) Lucia - Fully Assessed Primary Visit Diagnosis:History of endometrial cancer [Z85.42] Other Visit Diagnosis:Umbilical hernia without obstruction or gangrene [K42.9] Prescriptions as of 06/29/2018 Sig: MELOXICAM 15 MG TABLET Take 1 tablet by mouth once d* ATORVASTATIN 10 MG TABLET Take 1 tablet by mouth once d* METFORMIN 1,000 MG TABLET Take 1 tablet by mouth twice * LISINOPRIL 5 MG TABLET Take 1 tablet by mouth once d* BLOOD SUGAR DIAGNOSTIC STRIPS Test blood sugar(s) 2 times d* TRAMADOL 50 MG TABLET Take 1 tablet by mouth twice * CYCLOBENZAPRINE 10 MG TABLET Take 1 tablet by mouth twice * GABAPENTIN 300 MG CAPSULE Take 1 capsule by mouth four * BLOOD SUGAR DIAGNOSTIC STRIPS Testing twice daily for uncon* LANCETS Test blood sugar(s) twice emerald* ECOTRIN LOW STRENGTH 81 MG TA* Take one(1) tablet daily. Problem List As Of Date 06/29/2018 Noted Resolved Abnormal mammogram, unspecified [R92.8] INVALID FOR*06/12/2011 BENIGN HYPERTENSION [I10] INVALID FOR* Diabetes mellitus type 2, controlled, without c*INVALID FOR* Lumbago with sciatica [M54.40] INVALID FOR* S/P laminectomy [Z98.890] INVALID FOR* Osteoarthritis of hip [M16.9] INVALID FOR* More... Hyperlipidemia [E78.5] INVALID FOR* Malignant neoplasm of corpus uteri, except isth*INVALID FOR* Umbilical hernia without obstruction or gangren*INVALID FOR* Encounter Status:Closed by JEYSON KIRAN CNP on 06/29/18 PROGRESS Observed: 06/24/2018 Status: COMPLETED Source: CADE 7:33 AM [facility] [place] REPOSITORY HNO ID: [id number] Author: Jeyson (Bam) Lucia Service: (none) Author Type: Nurse Practitioner Type: Progress Notes Filed: 06/29/2018 2:56 PM Note Text: DATE OF SERVICE: 06/29/18 PROBLEM: Sheila Gutierrez presents for follow-up of endometrial cancer. DIAGNOSIS: 1A grade 2 (foci of grade 3) endometrial adenocarcinoma, 3.5 cm tumor size, 1/15 mm myometrial invasion, negative LVSI. MSI testing negative PRIOR THERAPY AND DATE: 1) 04/10/15 - Single port total laparoscopic hysterectomy, bilateral salpingo-oophorectomy, cystoscopy, bilateral pelvic lymphadenectomy 2) 2100 cGy was delivered in 3 weekly fractions over 14 days to the vaginal cuff using I-192 through a multichannel vaginal cylinder from 06/13/15 through 06/27/15. LAST VISIT: 01/13/18 LAST CHEST X-RAY: 03/28/15 - No active cardiopulmonary disease CT Chest 12/31/16 ([facility]) IMPRESSION: No pulmonary nodule is seen. CA 125 (U/mL) Date Value 03/28/2015 33 LAST COLONOSCOPY: 2009 LAST MAMMOGRAM: 05/16/17 - negative SUBJECTIVE/INTERVAL HISTORY: Sheila Gutierrez reports that she feels well. Occasional pink spotting with dilator use; notes a tightness midway, but can ultimately push beyond it. Normal bowel and bladder function. Hernia noted, but not bothersome. Not currently sexually active, but uses dilator 2 x a week. No shortness of breath, cough, or chest pain. No dysuria, gross hematuria, urinary frequency, urinary urgency, or incontinence. Her ECOG performance status is zero (fully active, able to carry on all pre-disease performance without restriction). Was recently thrown from a horse but has recovered. Noted some achiness of her tailbone that preceded the accident that has since resolved. OBJECTIVE: VITALS: BP 148/72 Pulse 90 Temp (Src) 98.6 (Tympanic) Resp 18 Wt 183 lb 1.6 oz (83.1kg) SpO2 98% GENERAL: Patient is a well developed, well nourished, obese female. She is alert, oriented, pleasant and cooperative. SKIN: Color, texture, turgor normal. No rashes or lesions. HEENT: Normocephalic, atraumatic, mucus membranes moist and no lesions NECK: Supple, no adenopathy LUNGS: Clear to auscultation bilaterally. HEART: Regular rate and rhythm, no murmurs. BACK: No CVA tenderness or gross deformities. ABDOMEN: Abdomen soft, non-tender, no hepatosplenomegaly. NO masses. Small umbilical hernia ~ 2-3 cm, reducible, NT PELVIC: External genitalia, anus and urethral meatus are normal in appearance and without lesions. Vagina with mild scarring upper 1/3. Vagina with radiation telangiectasias. NO lesions. No bleeding currently. Bimanual pelvic and RV examination negative for urethral, bladder or pelvic masses. No cul-de-sac nodularity. Uterus, cervix, adnexa surgically absent. NO rectal masses. LOWER EXTREMITIES: No pitting edema, no palpable cords and no skin changes. ASSESSMENT: 1. 67yo with 1A grade 2 (foci of grade 3) endometrial adenocarcinoma, 3.5 cm tumor size, 1/15 mm myometrial invasion, negative LVSI, RODOLFO at 36 months from radiation 2. Lung nodule- no longer seen on CT 3. Umbilical Hernia- stable PLAN: 1. Exam normal and findings reviewed. Continue surveillance. CT chest stable x ~ 2 years now (nodules noted on pre op imaging), so no further imaging needed in absence of symptoms. 2. Hernia warnings reviewed. Continues to Decline surgical referral at this time. 3. Continue dilator use. 4. Signs of recurrence reviewed. 5. RTC [address] Stafofrd. To call in the interim with questions or concerns. Jeyson Kiran APRN.ENDLESS BELT FINISHER A letter and a copy of this office note were sent to: MD Geoff Silva MD (PCP) BD DXA - AXIAL Observed: 02/02/2018 Status: F Source: [place]LETON 9:18 AM [facility] REPOSITORY * * *Final Report* * * DATE OF EXAM: Feb 02 2018 9:18AM WRB [id number] - BD DXA - AXIAL SKELETON B / PROCEDURE REASON: Encounter for screening for osteoporosis * * * * Physician Interpretation * * * * BONE DENSITY - 02/02/2018 9:18 AM HISTORY: INDICATIONS / RISK FACTORS / DEMOGRAPHICS: Encounter for screening for osteoporosis Includes DXA-axial skeleton postmenopausal, diabetes, hypertension, hyperlipidemia, metformin, mobic, on neurontin, spine fusion surgery, hysterectomy, uterine cancer TECHNIQUE: Both hips evaluated COMPARISON: 05/01/2011 STUDY LIMITATIONS: None RESULT: LEFT TOTAL HIP: BMD = 1.044 g/cm2, which is 0.8 SDs (T-Score) for mean peak bone mass of young normals 2.1 SDs (Z-Score) for mean peak bone mass matched for age, sex, weight, ethnicity LEFT FEMORAL NECK: BMD = 0.822 g/cm2, which is -0.2 SDs (T-Score) for mean peak bone mass of young normals 1.3 SDs (Z-Score) for mean peak bone mass matched for age, sex, weight, ethnicity Comment: There has been a 2.7% decrease in bone density in the left femoral neck. This is statistically significant. This is clinically significant RIGHT TOTAL HIP: BMD = 1.022 g/cm2, which is 0.7 SDs (T-Score) for mean peak bone mass of young normals 1.9 SDs (Z-Score) for mean peak bone mass matched for age, sex, weight, ethnicity RIGHT FEMORAL NECK: BMD = 0.814 g/cm2, which is -0.3 SDs (T-Score) for mean peak bone mass of young normals 1.2 SDs (Z-Score) for mean peak bone mass matched for age, sex, weight, ethnicity 10-year Fracture Risk (FRAX): Major osteoporotic fracture risk 6.7% Hip fracture risk 0.3% IMPRESSION: The patient's T- scores meet the World Health Organization classification for normal bone density. Follow-up exam in 2 to 4 years recommended [facility] ORG. CLASSIFICATION OF BONE MASS CLASSIFICATION T-SCORE Normal Greater than or equal to -1 Low Bone Mass Between -1 and -2.5 (Osteopenia) Osteoporosis Less than or equal to -2.5 Haul Driver: BETSY Transcribe Date/Time: Feb 02 2018 10:05A Dictated by : KENRICK WILDER, DO This examination was interpreted and the report reviewed and electronically signed by: KENRICK WILDER DO on Feb 03 2018 2:36PM EST [id number] PROGRESS Observed: 02/02/2018 Status: COMPLETED Source: CADE 9:02 AM [facility] REPOSITORY HNO ID: [id number] Author: Sushila Nathanener Rt Service: (none) Author Type: (none) Type: Progress Notes Filed: 02/02/2018 9:19 AM Note Text: Sheila Gutierrez February 02, 2018 [id number] Double identification: Patient identified by name and Bone Density Completed. Sushila Nathanener Rt patient told of radiation jk 9:00AM NOT PROGRESS Observed: 01/20/2018 Status: COMPLETED Source: CADE 12:39 PM [facility] REPOSITORY HNO ID: [id number] Author: Geoff Aguirre Service: (none) Author Type: Physician Type: Progress Notes Filed: 01/20/2018 3:16 PM Note Text: This note was created using [employer]. Subjective Sheila Gutierrez is a 67 year old female here for follow up. She was doing well and had no concerns. Her diabetes mellitus, hypertension, and lipids were controlled. She just saw gynecologic oncology and she had RODOLFO. We reviewed health maintenance. ACTIVE PROBLEM LIST Essential Hypertension, Benign Diabetes Mellitus Type 2, Controlled, Without Complications (Hcc) Lumbago With Sciatica S/P Laminectomy Osteoarthritis of Hip Hyperlipidemia Malignant Neoplasm of Corpus Uteri, Except Isthmus (Hcc) Umbilical Hernia Without Obstruction Or Gangrene Review of Systems Constitutional: Negative. Respiratory: Negative. Cardiovascular: Negative. Gastrointestinal: Negative. Current Outpatient Prescriptions: atorvastatin (LIPITOR) 10 mg tablet Take 1 tablet by mouth once daily. metFORMIN (GLUCOPHAGE) 1,000 mg tablet Take 1 tablet by mouth twice daily with meals. meloxicam (MOBIC) 15 mg tablet Take 1 tablet by mouth once daily as needed (joint pain). lisinopril (ZESTRIL, PRINIVIL) 5 mg tablet Take 1 tablet by mouth once daily. blood sugar diagnostic (FREESTYLE LITE STRIPS) test strip Test blood sugar(s) 2 times daily. Dx: Type 2 DM - Controlled E11.9 Insulin: No traMADol (ULTRAM) 50 mg tablet Take 1 tablet by mouth twice daily as needed for Pain. Dr. Raines cyclobenzaprine (FLEXERIL) 10 mg tablet Take 1 tablet by mouth twice daily as needed for Muscle Spasm. Dr. Raines gabapentin (NEURONTIN) 300 mg capsule Take 1 capsule by mouth four times daily. blood sugar diagnostic (BLOOD GLUCOSE TEST) test strip Testing twice daily for uncontrolled blood sugars 250.00 non insulin dependent.Use as instructed Lancets lancets Test blood sugar(s) twice times daily. Dx: 250.00. Insulin: No aspirin(ECOTRIN LOW STRENGTH 81 MG TAB) Take one(1) tablet daily. No current facility-administered medications for this visit. Objective BP 139/89 (BP Site: Left Arm, BP Position: Sitting, BP Cuff Size: Regular Adult) Pulse 80 Temp (!) 35.9 ?C (96.6 ?F) (Left Tympanic) Resp 16 Wt 83 kg (183 lb) BMI 33.47 kg/m2 Physical Exam Constitutional: She appears well-nourished. No distress. Cardiovascular: Normal heart sounds. Pulmonary/Chest: Breath sounds normal. Musculoskeletal: She exhibits no edema. Hemoglobin A1C (%) Date Value 01/15/2018 6.0 08/16/2017 6.1 ) Assessment and Plan ASSESSMENT/PLAN: 1. Controlled type 2 diabetes mellitus without complication, without long-term current use of insulin (HCC) - ICD9: 250.00, ICD10: E11.9 (primary diagnosis) Controlled. - Continue medication. - COMP METABOLIC PANEL - HGB A1C - ALBUMIN/CREAT RATIO RND UR 2. Essential hypertension, benign - ICD9: 401.1, ICD10: I10 - good control - CBC 3. Hyperlipidemia, unspecified hyperlipidemia type - ICD9: 272.4, ICD10: E78.5 - good control - Continue current medication. - LIPID PANEL BASIC 4. Need for vaccination - ICD9: V05.9, ICD10: Z23 - PNEUMOCOCCAL-13 VACCINE PCV-13 5. Encounter for screening for osteoporosis - ICD9: V82.81, ICD10: Z13.820 - DXA-AXIAL SKELETON Health maintenance reviewed. Patient indicated understanding and willingness to follow recommendations. Geoff Aguirre MD CNOV Observed: 01/20/2018 Status: COMPLETED Source: CADE 11:00 AM [facility] REPOSITORY Office Visit (INTMWS) SHEILA GUTIERREZ ([id number]) 1950 F Date Time Provider Department 01/20/18 11:00 AM GEOFF AGUIRRE During your visit today, we recorded the following information about you: Temperature Pulse Respiration Blood pressure 96.6 degrees 80/minute 16/minute 139/89 Weight 83 kg Geoff Aguirre MD 01/20/2018 3:16 PM Signed This note was created using [employer]. Subjective Sheila Gutierrez is a 67 year old female here for follow up. She was doing well and had no concerns. Her diabetes mellitus, hypertension, and lipids were controlled. She just saw gynecologic oncology and she had RODOLFO. We reviewed health maintenance. ACTIVE PROBLEM LIST Essential Hypertension, Benign Diabetes Mellitus Type 2, Controlled, Without Complications (Hcc) Lumbago With Sciatica S/P Laminectomy Osteoarthritis of Hip Hyperlipidemia Malignant Neoplasm of Corpus Uteri, Except Isthmus (Hcc) Umbilical Hernia Without Obstruction Or Gangrene Review of Systems Constitutional: Negative. Respiratory: Negative. Cardiovascular: Negative. Gastrointestinal: Negative. Current Outpatient Prescriptions: atorvastatin (LIPITOR) 10 mg tablet Take 1 tablet by mouth once daily. metFORMIN (GLUCOPHAGE) 1,000 mg tablet Take 1 tablet by mouth twice daily with meals. meloxicam (MOBIC) 15 mg tablet Take 1 tablet by mouth once daily as needed (joint pain). lisinopril (ZESTRIL, PRINIVIL) 5 mg tablet Take 1 tablet by mouth once daily. blood sugar diagnostic (FREESTYLE LITE STRIPS) test strip Test blood sugar(s) 2 times daily. Dx: Type 2 DM - Controlled E11.9 Insulin: No traMADol (ULTRAM) 50 mg tablet Take 1 tablet by mouth twice daily as needed for Pain. Dr. Raines cyclobenzaprine (FLEXERIL) 10 mg tablet Take 1 tablet by mouth twice daily as needed for Muscle Spasm. Dr. Raines gabapentin (NEURONTIN) 300 mg capsule Take 1 capsule by mouth four times daily. blood sugar diagnostic (BLOOD GLUCOSE TEST) test strip Testing twice daily for uncontrolled blood sugars 250.00 non insulin dependent.Use as instructed Lancets lancets Test blood sugar(s) twice times daily. Dx: 250.00. Insulin: No aspirin(ECOTRIN LOW STRENGTH 81 MG TAB) Take one(1) tablet daily. No current facility-administered medications for this visit. Objective BP 139/89 (BP Site: Left Arm, BP Position: Sitting, BP Cuff Size: Regular Adult) Pulse 80 Temp (!) 35.9 ?C (96.6 ?F) (Left Tympanic) Resp 16 Wt 83 kg (183 lb) BMI 33.47 kg/m2 Physical Exam Constitutional: She appears well-nourished. No distress. Cardiovascular: Normal heart sounds. Pulmonary/Chest: Breath sounds normal. Musculoskeletal: She exhibits no edema. Hemoglobin A1C (%) Date Value 01/15/2018 6.0 08/16/2017 6.1 ) Assessment and Plan ASSESSMENT/PLAN: 1. Controlled type 2 diabetes mellitus without complication, without long-term current use of insulin (HCC) - ICD9: 250.00, ICD10: E11.9 (primary diagnosis) Controlled. - Continue medication. - COMP METABOLIC PANEL - HGB A1C - ALBUMIN/CREAT RATIO RND UR 2. Essential hypertension, benign - ICD9: 401.1, ICD10: I10 - good control - CBC 3. Hyperlipidemia, unspecified hyperlipidemia type - ICD9: 272.4, ICD10: E78.5 - good control - Continue current medication. - LIPID PANEL BASIC 4. Need for vaccination - ICD9: V05.9, ICD10: Z23 - PNEUMOCOCCAL-13 VACCINE PCV-13 5. Encounter for screening for osteoporosis - ICD9: V82.81, ICD10: Z13.820 - DXA-AXIAL SKELETON Health maintenance reviewed. Patient indicated understanding and willingness to follow recommendations. Geoff Aguirre MD Referring Provider: GEOFF AGUIRRE [[id number]] Allergies As of Date: 01/20/2018 Noted Allergy Reaction BLACK COHASH [Other] 02/26/2006 5 - Intolerance Comments: MIGRAINE HEADACHES CODEINE 01/18/2009 PERCODAN (OXYCODONE-ASPIRIN) 01/18/2009 Date Reviewed: 01/13/2018 Reviewed by: Grace Stafford - Fully Assessed Reason for Visit: F/U 6 Month [444] Primary Visit Diagnosis:Controlled type 2 diabetes mellitus without complication, without long-term current use of insulin (HCC) [E11.9] Other Visit Diagnoses:Essential hypertension, benign [I10] Hyperlipidemia, unspecified hyperlipidemia type [E78.5] Need for vaccination [Z23] Encounter for screening for osteoporosis [Z13.820] Order(s):CBC [SQCBC] Order #: [id number] FUTURE COMP METABOLIC PANEL [SQCMP] Order #: [id number] FUTURE LIPID PANEL BASIC [SQLIPB] Order #: [id number] FUTURE HGB A1C [WNSZK6Y] Order #: [id number] FUTURE ALBUMIN/CREAT RATIO RND UR [SQUACR] Order #: [id number] FUTURE PNEUMOCOCCAL-13 VACCINE PCV-13 [[id number]] Order #: [id number] DXA-AXIAL SKELETON [[id number]] Order #: [id number] FUTURE Prescriptions as of 01/20/2018 Sig: ATORVASTATIN 10 MG TABLET Take 1 tablet by mouth once d* METFORMIN 1,000 MG TABLET Take 1 tablet by mouth twice * MELOXICAM 15 MG TABLET Take 1 tablet by mouth once d* LISINOPRIL 5 MG TABLET Take 1 tablet by mouth once d* BLOOD SUGAR DIAGNOSTIC STRIPS Test blood sugar(s) 2 times d* TRAMADOL 50 MG TABLET Take 1 tablet by mouth twice * CYCLOBENZAPRINE 10 MG TABLET Take 1 tablet by mouth twice * GABAPENTIN 300 MG CAPSULE Take 1 capsule by mouth four * BLOOD SUGAR DIAGNOSTIC STRIPS Testing twice daily for uncon* LANCETS Test blood sugar(s) twice emerald* ECOTRIN LOW STRENGTH 81 MG TA* Take one(1) tablet daily. Problem List As Of Date 01/20/2018 Noted Resolved Abnormal mammogram, unspecified [R92.8] INVALID FOR*06/12/2011 BENIGN HYPERTENSION [I10] INVALID FOR* Diabetes mellitus type 2, controlled, without c*INVALID FOR* Lumbago with sciatica [M54.40] INVALID FOR* S/P laminectomy [Z98.890] INVALID FOR* Osteoarthritis of hip [M16.9] INVALID FOR* More... Hyperlipidemia [E78.5] INVALID FOR* Malignant neoplasm of corpus uteri, except isth*INVALID FOR* Umbilical hernia without obstruction or gangren*INVALID FOR* Disposition: Return in about 6 months (around 07/23/2018). Follow-up and Disposition History Recorded Encounter Status:Closed by GEOFF AGUIRRE MD on 01/20/18 HEMOGLOBIN A1C Collected: 01/15/2018 Status: F Source: CADE 7:44 AM [facility] REPOSITORY TYPE CODE TESTS RESULT OUT OF REFERENCE UNITS RANGE LAB HGBA1C 4.3-5.6 % High Hemoglobin A1c 6.0 LAB HBA0 mg/dL Est. Average Glucose 126 Result Comment: eAG: (Estimated average glucose) is a calculated value from HgbA1c and is herbicide service sales representative of the average blood glucose level in the last 2-3 month period. Performed By: #### HBA1C #### [place] [address] CNCO Observed: 01/15/2018 Status: COMPLETED Source: CADE 12:00 AM [facility] REPOSITORY Letter Text [address] [place] [address] Grace Stafford M.D. motor winder Section of Gynecologic Oncology [facility] [place] Office: [phone] [email or web address] January 15, 2018 RE: Sheila Gutierrez DOS: 01/13/[address] Aguirre This letter is in follow up for your patient, Sheila Gutierrez, who was recently seen in my office. Please see my completed note from that visit in EPIC. If I can be of any further assistance, or if you have any questions, please contact my office. Sincerely, Grace Stafford M.D. JOCELYN/ CNOVSP Observed: 01/13/2018 Status: COMPLETED Source: CADE 2:15 PM [facility] REPOSITORY Visit (SP) Office (GYNHC) SHEILA GUTIERREZ ([id number]) 1950 F Date Time Provider Department 01/13/18 2:15 PM GRACE STAFFORD GYN During your visit today, we recorded the following information about you: Temperature Pulse Blood pressure Weight 97.8 degrees 95/minute 143/72 83.3 kg Grace Stafford MD 01/13/2018 2:44 PM Signed DATE OF SERVICE: 01/13/2018 PROBLEM: Sheila Gutierrez presents for follow-up of endometrial cancer. DIAGNOSIS: 1A grade 2 (foci of grade 3) endometrial adenocarcinoma, 3.5 cm tumor size, 1/15 mm myometrial invasion, negative LVSI. MSI testing negative PRIOR THERAPY ANDamp; DATE: 1) 04/10/15 - Single port total laparoscopic hysterectomy, bilateral salpingo-oophorectomy, cystoscopy, bilateral pelvic lymphadenectomy 2) 2100 cGy was delivered in 3 weekly fractions over 14 days to the vaginal cuff using I-192 through a multichannel vaginal cylinder from 06/13/15 through 06/27/15. LAST VISIT: 07/15/17 LAST CHEST X-RAY: 03/28/15 - No active cardiopulmonary disease CT Chest 12/31/16 ([facility]) IMPRESSION: No pulmonary nodule is seen. CA 125 (U/mL) Date Value 03/28/2015 33 LAST COLONOSCOPY: 2009 LAST MAMMOGRAM: 05/16/17 - negative SUBJECTIVE/INTERVAL HISTORY: Sheila Gutierrez reports that she feels well. Had one episode of small unprovoked vaginal bleeding last month and again some after dilator use the following day. None since. Normal bowel and bladder function. Hernia noted, but not bothersome. Not currently sexually active, but uses dilator 2 x a week. No shortness of breath, cough, or chest pain. No dysuria, gross hematuria, urinary frequency, urinary urgency, or incontinence. Her ECOG performance status is zero (fully active, able to carry on all pre-disease performance without restriction). OBJECTIVE: VITALS: BP 143/72 Pulse 95 Temp (Src) 97.8 (Temporal Artery) Wt 183 lb 9.6 oz (83.3kg) SpO2 96% GENERAL: Patient is a well developed, well nourished, obese female. She is alert, oriented, pleasant and cooperative. SKIN: Color, texture, turgor normal. No rashes or lesions. HEENT: Normocephalic, atraumatic, mucus membranes moist and no lesions NECK: Supple, no adenopathy LUNGS: Clear to auscultation bilaterally. HEART: Regular rate and rhythm, no murmurs. BACK: No CVA tenderness or gross deformities. ABDOMEN: Abdomen soft, non-tender, no hepatosplenomegaly. NO masses. Small umbilical hernia ~ 2-3 cm, reducible, NT PELVIC: External genitalia, anus and urethral meatus are normal in appearance and without lesions. Vagina with mild scarring upper 1/3. Vagina with radiation telangiectasias. NO lesions. No bleeding currently. Bimanual pelvic and RV examination negative for urethral, bladder or pelvic masses. No cul-de-sac nodularity. Uterus, cervix, adnexa surgically absent. NO rectal masses. LOWER EXTREMITIES: No pitting edema, no palpable cords and no skin changes. Edge Glue Machine Tender for exam: Jeyson Kiran DNP ASSESSMENT: 1. 67yo with 1A grade 2 (foci of grade 3) endometrial adenocarcinoma, 3.5 cm tumor size, 1/15 mm myometrial invasion, negative LVSI, RODOLFO at 30 months from radiation 2. Lung nodule- no longer seen on CT 3. Umbilical Hernia- stable PLAN: 1. Exam normal and findings reviewed. Continue surveillance. CT chest stable x ~ 2 years now (nodules noted on pre op imaging), so no further imaging needed in absence of symptoms. 2. Hernia warnings reviewed. Declines surgical referral at this time. 3. Vaginal adhesions- continue dilator use. 4. Signs of recurrence reviewed. 5. RTC ~ 5-6 months. To call in the interim with questions or concerns. Grace Stafford MD A letter and a copy of this office note were sent to: Geoff Aguirre MD (PCP) Referring Provider: GRACE STAFFORD [[id number]] Allergies As of Date: 01/13/2018 Noted Allergy Reaction BLACK COHASH [Other] 02/26/2006 5 - Intolerance Comments: MIGRAINE HEADACHES CODEINE 01/18/2009 PERCODAN (OXYCODONE-ASPIRIN) 01/18/2009 Date Reviewed: 01/13/2018 Reviewed by: Grace M Michener - Fully Assessed Reason for Visit: Established Patient [175] Primary Visit Diagnosis:Malignant neoplasm of corpus uteri, except isthmus (HCC) [C54.9] Other Visit Diagnoses:Vagina bleeding [N93.9] Umbilical hernia without obstruction or gangrene [K42.9] Prescriptions as of 01/13/2018 Sig: ATORVASTATIN 10 MG TABLET Take 1 tablet by mouth once d* METFORMIN 1,000 MG TABLET Take 1 tablet by mouth twice * MELOXICAM 15 MG TABLET Take 1 tablet by mouth once d* LISINOPRIL 5 MG TABLET Take 1 tablet by mouth once d* X ATORVASTATIN 10 MG TABLET Take 1 tablet by mouth once d* BLOOD SUGAR DIAGNOSTIC STRIPS Test blood sugar(s) 2 times d* TRAMADOL 50 MG TABLET Take 1 tablet by mouth twice * CYCLOBENZAPRINE 10 MG TABLET Take 1 tablet by mouth twice * GABAPENTIN 300 MG CAPSULE Take 1 capsule by mouth four * BLOOD SUGAR DIAGNOSTIC STRIPS Testing twice daily for uncon* LANCETS Test blood sugar(s) twice emerald* ECOTRIN LOW STRENGTH 81 MG TA* Take one(1) tablet daily. Problem List As Of Date 01/13/2018 Noted Resolved Abnormal mammogram, unspecified [R92.8] INVALID FOR*06/12/2011 BENIGN HYPERTENSION [I10] INVALID FOR* Diabetes mellitus type 2, controlled, without c*INVALID FOR* Lumbago with sciatica [M54.40] INVALID FOR* S/P laminectomy [Z98.890] INVALID FOR* Osteoarthritis of hip [M16.9] INVALID FOR* More... Hyperlipidemia [E78.5] INVALID FOR* Malignant neoplasm of corpus uteri, except isth*INVALID FOR* Umbilical hernia without obstruction or gangren*INVALID FOR* Encounter Status:Closed by GRACE STAFFORD MD on 01/13/18 CNCO Observed: 12/26/2017 Status: COMPLETED Source: CADE 12:00 AM [facility] REPOSITORY Letter Text [address] [place] [address] [phone] 12/26/2017 Sheila Gutierrez [address] [place] [address] Dear Ms. Gutierrez: Due to a change in the provider's schedule, it has been necessary to reschedule your appointment. Enclosed please find a new appointment reminder that will replace the one previously sent to you. If this appointment is not convenient for you, please contact our office at [phone]. Thank you for choosing the [facility] as your Healthcare Provider. Sincerely, Appointment Office Department of Internal Medicine Enclosure PROGRESS Observed: 12/10/2017 Status: COMPLETED Source: CADE 5:35 PM [facility] REPOSITORY HNO ID: [id number] Author: Grace Stafford Service: (none) Author Type: Physician Type: Progress Notes Filed: 01/13/2018 2:44 PM Note Text: DATE OF SERVICE: 01/13/2018 PROBLEM: Sheila uGtierrez presents for follow-up of endometrial cancer. DIAGNOSIS: 1A grade 2 (foci of grade 3) endometrial adenocarcinoma, 3.5 cm tumor size, 1/15 mm myometrial invasion, negative LVSI. MSI testing negative PRIOR THERAPY AND DATE: 1) 04/10/15 - Single port total laparoscopic hysterectomy, bilateral salpingo-oophorectomy, cystoscopy, bilateral pelvic lymphadenectomy 2) 2100 cGy was delivered in 3 weekly fractions over 14 days to the vaginal cuff using I-192 through a multichannel vaginal cylinder from 06/13/15 through 06/27/15. LAST VISIT: 07/15/17 LAST CHEST X-RAY: 03/28/15 - No active cardiopulmonary disease CT Chest 12/31/16 ([facility]) IMPRESSION: No pulmonary nodule is seen. CA 125 (U/mL) Date Value 03/28/2015 33 LAST COLONOSCOPY: 2009 LAST MAMMOGRAM: 05/16/17 - negative SUBJECTIVE/INTERVAL HISTORY: Sheila Gutierrez reports that she feels well. Had one episode of small unprovoked vaginal bleeding last month and again some after dilator use the following day. None since. Normal bowel and bladder function. Hernia noted, but not bothersome. Not currently sexually active, but uses dilator 2 x a week. No shortness of breath, cough, or chest pain. No dysuria, gross hematuria, urinary frequency, urinary urgency, or incontinence. Her ECOG performance status is zero (fully active, able to carry on all pre-disease performance without restriction). OBJECTIVE: VITALS: BP 143/72 Pulse 95 Temp (Src) 97.8 (Temporal Artery) Wt 183 lb 9.6 oz (83.3kg) SpO2 96% GENERAL: Patient is a well developed, well nourished, obese female. She is alert, oriented, pleasant and cooperative. SKIN: Color, texture, turgor normal. No rashes or lesions. HEENT: Normocephalic, atraumatic, mucus membranes moist and no lesions NECK: Supple, no adenopathy LUNGS: Clear to auscultation bilaterally. HEART: Regular rate and rhythm, no murmurs. BACK: No CVA tenderness or gross deformities. ABDOMEN: Abdomen soft, non-tender, no hepatosplenomegaly. NO masses. Small umbilical hernia ~ 2-3 cm, reducible, NT PELVIC: External genitalia, anus and urethral meatus are normal in appearance and without lesions. Vagina with mild scarring upper 1/3. Vagina with radiation telangiectasias. NO lesions. No bleeding currently. Bimanual pelvic and RV examination negative for urethral, bladder or pelvic masses. No cul-de-sac nodularity. Uterus, cervix, adnexa surgically absent. NO rectal masses. LOWER EXTREMITIES: No pitting edema, no palpable cords and no skin changes. Edge Glue Machine Tender for exam: Jeyson Kiran DNP ASSESSMENT: 1. 67yo with 1A grade 2 (foci of grade 3) endometrial adenocarcinoma, 3.5 cm tumor size, 1/15 mm myometrial invasion, negative LVSI, RODOLFO at 30 months from radiation 2. Lung nodule- no longer seen on CT 3. Umbilical Hernia- stable PLAN: 1. Exam normal and findings reviewed. Continue surveillance. CT chest stable x ~ 2 years now (nodules noted on pre op imaging), so no further imaging needed in absence of symptoms. 2. Hernia warnings reviewed. Declines surgical referral at this time. 3. Vaginal adhesions- continue dilator use. 4. Signs of recurrence reviewed. 5. RTC ~ 5-6 months. To call in the interim with questions or concerns. Grace Stafford MD A letter and a copy of this office note were sent to: Geoff Aguirre MD (PCP) ALLERGIES ALLERGIES DATE TYPE / CODE NAME / CODE REACTION SEVERITY SOURCE Drug oxycodone Other Unknown [facility] Allergy/127093838( HCl/[id number] [facility] SNOM[facility]) (RXNORM) Hospital Repository Drug oxycodone Other Unknown [facility] Allergy/325125608( terephthalate/ Community SNOMED CT) [id number]([facility] [place]) Repository Drug aspirin/N68335 Other Unknown [facility] Allergy/629431752( 1587(RXNORM) Community SNOMED CT) Hospital Repository Drug black Other Unknown [place] [facility] Allergy/517857970( cohosh/[id number] Community SNOMED CT) 560(RXNORM) Hospital Repository Drug codeine/T62079 Unknown Unknown [place] [facility] Allergy/449705291( 1550(RXNORM) Community SNOMED CT) Hospital Repository DRUG CODEINE [place] 9 INGREDI/196192169( Clinic Other SNOMED CT) [place] Repository DRUG/[id number](SNO OXYCODONE-ASPI [place] [address]) RIN [facility] Other [place] Repository Miscellaneous OTHER INTOLERANCE [place] 6 Allergy/629215236( Clinic Other SNOMED CT) [place] Rep[facility] NG/100500719([facility] OTHER [facility]) [facility] Repository NG/[id number]([facility] CODEINE [facility]) Health System Repository NG/[id number]([facility] OXYCODONE-ASPI [facility]) [facility] Repository ENCOUNTERS ENCOUNTERS ADMIT/DISCHARGE ACCOUNT NUMBER ADMITTING ENCOUNTER LOCATION SOURCE CLASS 12/02/2018/12/02/[id number] Repository 11/20/2018/11/23/[id number] Repository 11/20/2018/11/23/[id number] Repository 11/20/2018/11/20/[id number] Repository 11/18/2018/11/18/19 [id number] ANITRA V, Ambulatory [address] Repository 11/18/2018/11/18/19 [id number] KAREEM Leon, Inpatient [place] [address] MEDICAL Repository CENTERBuildi ng:CCLERoom: POOLBed: 02 11/16/2018/11/17/19 [id number] Ambulatory [address] Repository 11/12/2018/11/13/[id number] Repository 11/12/2018/11/16/19 [id number] Ambulatory [place] [facility] [address] [place] Repository 10/29/2018/10/29/20 [id number] Ambulatory BMSBuilding: [place] [facility] Repository 10/29/2018 [id number] Ambulatory BMSBuilding: [place] BMS.[facility] Repository 10/29/2018/10/30/20 [id number] Ambulatory [place] [facility] Main [place] Repository 10/29/2018/10/29/20 [id number] Ambulatory [place] 18 [facility] Main [place] Repository 10/27/2018/10/27/20 [id number] Emergency [address] ding:ED Repository 10/26/2018/10/26/20 [id number] Ambulatory [place] [facility] [place] Repository 10/26/2018/10/26/20 [id number] Ambulatory [place] [facility] [place] [facility] 10/26/2018/10/27/20 [id number] Ambulatory [address] [place] Rep[place] 09/30/2018/09/30/20 [id number] Ambulatory [place] [facility] [place] Rep[place] 09/30/2018/10/02/20 [id number] Ambulatory [address] [place] 09/28/2018 [id number] Ambulatory [facility] ding:MASS Repository 09/25/2018/09/25/20 [id number] Ambulatory [place] [facility] [place] Rep[place] 08/11/2018/08/13/20 [id number] Ambulatory [address] [place] 08/07/2018 [id number] Ambulatory [facility] ding:MRI Repository 08/03/2018/08/03/20 [id number] Ambulatory [place] [facility] [place] Repository 07/11/2018 [id number] LUCIA Ambulatory [facility] Other [place] Rep[place] 07/02/2018/07/02/20 [id number] Ambulatory [place] [facility] [place] Rep[place] 06/29/2018/07/02/20 [id number] Ambulatory [place] [facility] [place] Rep[place] 06/26/2018 [id number] [facility] [place] [facility] 02/08/2018 [id number] [facility] [place] [facility] 02/02/2018/02/06/20 [id number] Ambulatory [address] Repository 01/20/2018/01/22/[id number] Repository 01/15/2018/01/16/[id number] [place] 01/13/2018/01/16/[id number] Repository 01/12/2018 [id number] AURY [facility] Other [place] Repository PAYERS PAYERS ENCOUNTER GUARANTOR PAYER SUBSCRIBER SOURCE 11/18/2018 SHEILA Bowman Primary SHEILA Bowman [facility] GIGAXDOB: Insurance:MEDICARE A GIGAXDOB: Health System E AND BPolicy Number: [id number] Repository GREER [id number] [place], [place] Date: [address]Pnn: () 11/18/2018 Secondary Insurance:MMO SHEILA [facility] TRADITIONALPolicy GIGAXDOB: Health System Number: [id number] Repository [id number] Date: 10/29/2018 SHEILA Bowman Primary Insurance:MMO SHEILA Bowman John [id number] E MEDICAREPolicy Number: GIGAXDOB: [facility] [id number] [id number] Date:7892-88-13FD BOX Repository [address]Cdl: [phone], [place] [phone] () [phone]: 10/29/2018 Secondary NOT GIVENUNK [employer] Insurance:SELF PAY Community INSURANCEPolicy Number: Hospital Effective Repository Date:2018-10-29 10/29/2018 SHEILA Bowman Primary Insurance:MMO SHEILA Bowman [employer] [id number] E MEDICAREPolicy Number: GIGAXDOB: [facility] [id number] [id number] Date:2101-23-21OT BOX Repository [address]43[address]Yxv: [phone], [place] [phone] (HP) [phone]: 10/29/2018 Secondary NOT GIVENUNK [employer] Insurance:SELF PAY Community INSURANCEPolicy Number: Hospital Effective Repository Date:2018-10-29 10/27/2018 SHEILA Bowman Primary Insurance:MMO SHEILA Bowman John [id number] E MEDICAREPolicy Number: GIGAXDOB: [facility] [id number] Date:3705-21-03QV BOX Repository [address]Ezg: [phone], [place] [phone] () [phone]: 10/27/2018 Secondary NOT GIVENUNK John Insurance:SELF PAY Community INSURANCEPolicy Number: Hospital Effective Repository Date:2018-10-27 09/28/2018 SHEILA Bowman Primary Insurance:SELF NOT GIVENUNK [employer] [id number] E PAY INSURANCEPolicy [facility] Number: Effective [place], [place] Date:2015-11-10 Repository [address]Xyn: () 08/07/2018 SHEILA Bowman Primary Insurance:MMO SHEILA Bowman [employer] [id number] E MEDICAREPolicy Number: GIGAXDOB: [facility] [id number] Date:1673-64-76QD BOX Repository [address]99[address]Vth: [phone], [place] [phone] () [phone]: 08/07/2018 Secondary NOT GIVENUNK John Insurance:SELF PAY Community INSURANCEPolicy Number: Hospital Effective Repository Date:2018
== END 2018-10-27 22:02 | disposition home or self-care (01) ==
PROVIDERS: Emergency Provider Emergency Medicine; Family Provider Internal Medicine; PCP Internal Medicine
DX: I50.9 Heart failure, unspecified (principal); E11.9 Type 2 diabetes mellitus without complications; Z85.42 Personal history of malignant neoplasm of other parts of uterus; Z87.891 Personal history of nicotine dependence; Z79.1 Long term (current) use of non-steroidal anti-inflammatories (NSAID); Z79.82 Long term (current) use of aspirin; Z79.84 Long term (current) use of oral hypoglycemic drugs; Z79.891 Long term (current) use of opiate analgesic; Z79.899 Other long term (current) drug therapy
CPT/HCPCS: 71275; 80048; 83880; 84484; 85025; 85610; 85730; 93005; 99285; Q9967; A4216

== ENCOUNTER → 2020-08-04 | Outpatient (CLI) | payer MEDICARE, OTHER, SELFPAY ==
[2018-10-29 14:41] VITALS: BMI 32.9
--- NOTE | 2020-08-04 13:18 | CT_ITS ---
STUDY: CT LUMBAR SPINE WITHOUT CONTRAST REASON FOR EXAM: Female, 70 years old. POST LAMINECTOMY SYNDROME RADIATION DOSAGE (If Supplied By Facility): CTDIvol = ( 20.58 ) mGy, DLP = ( 644.36 ) mGycm TECHNIQUE: The patient was scanned in a multi detector CT scanner. High resolution transaxial imaging was performed. Images were obtained from L1 to S1 vertebral level. Sagittal and coronal images were reconstructed. Individualized dose optimization techniques were used for this CT. COMPARISON: None FINDINGS: Normal lumbar lordosis. There is no substantial scoliosis. The patient is status post laminectomy and interpedicular screw fixation at the L4-L5 level. L1-2: Normal endplates. Normal disc height and morphology. Normal bilateral facet joints. Normal central canal and bilateral lateral recesses. Normal bilateral intervertebral neural foramina. L2-3: Mild degree of diffuse posterior disc bulge. Mild degree of central and bilateral neural foraminal stenosis. L3-4: Marked degree of disc space narrowing. Subchondral sclerosis. Posterior spondylosis. Facet joint hypertrophy. There is a 6.5 mm x 3.7 mm bony fragment on the right side of midline posteriorly causing moderate degree of the right neural foraminal stenosis. Minimal anterior listhesis of L3 on L4. L4-5: Mild degree of the disc space narrowing. Status post laminectomy and interpedicular screw fixation. L5-S1: Normal endplates. Normal disc height and morphology. Normal bilateral facet joints. Normal central canal and bilateral lateral recesses. Normal bilateral intervertebral neural foramina. Normal visualized paraspinous soft tissue structures. CT/Spine Lumbar without Contrast IMPRESSION: Status post laminectomy and interpedicular screw fixation at the L4-L5 and L3-L4 levels. Central canal and bilateral neural foraminal stenosis at the L3-L4 level worse on the right side. Electronically Signed: Micheal Lilly, at 14:43 EDT , Service support ,
== END | disposition home or self-care (01) ==
LOC: CT 13:17
PROVIDERS: PCP Internal Medicine; Referring Provider Nurse Practitioner Family; Visit Provider Nurse Practitioner Family
DX: M51.17 Intervertebral disc disorders with radiculopathy, lumbosacral region (principal); M47.27 Other spondylosis with radiculopathy, lumbosacral region; M96.1 Postlaminectomy syndrome, not elsewhere classified; M12.9 Arthropathy, unspecified
CPT/HCPCS: 72131

== ENCOUNTER → 2020-10-26 14:31 | Outpatient (CLI) | payer MEDICARE, OTHER, SELFPAY ==
--- NOTE | 2020-10-26 14:35 | RAD_ITS ---
STUDY: X-RAY - CERVICAL SPINE REASON FOR EXAM: Female, 70 years old. ARM PAIN AND NUMBNESS TECHNIQUE: 5 view(s) of the cervical spine were obtained with flexion and extension. COMPARISON: None FINDINGS: Normal anterior atlantoaxial articulation. Normal odontoid process. The neutral lateral view shows reversal of curvature centered at T6. 2 mm anterolisthesis of C3 on C4. 2 mm anterolisthesis of C4 on C5. 3 mm anterolisthesis of C5 on C6. Grossly normal range of motion with flexion and extension, with no additional or worsening alignments. Multilevel degenerative disc disease and narrowing most pronounced at C6-C7. No fractures or acute abnormalities. RAD/Cerv Spine 4 or 5 Views IMPRESSION: No acute abnormalities. Multilevel degenerative changes. Multilevel malalignments which do not increase with flexion or extension. Electronically Signed: Michael Silva MD at 22:48 EST , Service support ,
== END ==
PROVIDERS: PCP Internal Medicine; Referring Provider Anesthesiology Pain Medicine; Visit Provider Anesthesiology Pain Medicine
DX: M79.603 Pain in arm, unspecified (principal)
CPT/HCPCS: 72050

== ENCOUNTER 2021-01-11 06:04 | Outpatient (RCR) | payer MEDICARE, OTHER, SELFPAY ==
[2021-01-11] MEDS: COVID-19 VACC, MRNA(PFIZER)/PF 30 MCG/0.3 ML SYRINGE IM (15:15)
[2021-02-01] MEDS: COVID-19 VACC, MRNA(PFIZER)/PF 30 MCG/0.3 ML SYRINGE IM (14:50)
== END 2021-04-17 23:59 ==
LOC: IMMUN 06:04
PROVIDERS: PCP Internal Medicine; Referring Provider Family Medicine; Visit Provider Family Medicine
DX: Z23 Encounter for immunization (principal)
CPT/HCPCS: 0001A; 0002A; 91300

== ENCOUNTER → 2021-07-30 11:48 | Outpatient (CLI) | payer MEDICARE, OTHER, SELFPAY ==
--- NOTE | 2021-07-30 11:50 | BI_ITS ---
MAMMOGRAPHY - BILATERAL SCREENING REASON FOR EXAM: Female, 70 years old. Routine annual screening examination. PERTINENT HISTORY: Non-contributory. Remote left stereotactic breast biopsy. TECHNIQUE: Digital bilateral breast jacob (3D mammographic acquisition) in the CC and MLO projections. 2-D mediolateral oblique (MLO) and craniocaudad (CC) views of both breasts were obtained. CAD: Full Field Digital Mammography with Computer Added Detection was performed. COMPARISON: Comparison is made with prior examination dated 07/14/2020. FINDINGS: Breast Composition: There are scattered areas of fibroglandular density. There are no dominant masses or suspicious calcifications. Stable benign-appearing bilateral axillary lymph nodes. A battery pack from a pacemaker is seen in the left axillary region. No other significant abnormalities are identified. There has been no significant change since the prior study. BI/SCRN MAMM (CAD)W/JACOB BILAT IMPRESSION: Stable bilateral screening mammogram. Yearly follow-up mammogram recommended. (A) ASSESSMENT CATEGORY: BIRADS Category 2: Benign. A letter regarding these results will be sent to the patient by the facility within 30 days. Approximately 10% of breast cancers are not detected by mammography. A normal mammogram should not delay biopsy of a clinically suspicious abnormality. [id number] Electronically Signed: Micheal Lilly MD at 13:10 EDT , Service support ,
== END ==
PROVIDERS: PCP Internal Medicine; Referring Provider Internal Medicine; Visit Provider Internal Medicine
DX: Z12.31 Encounter for screening mammogram for malignant neoplasm of breast (principal)
CPT/HCPCS: 77063; 77067

== ENCOUNTER → 2024-08-20 | Outpatient (CLI) | payer MEDICARE, OTHER, SELFPAY ==
[2024-08-20 12:18] LABS: Absolute Lymphocyte Count 2.22 X10^3/uL (0.83-4.51); Absolute Neutrophil Count 5.5 X10^3/uL (2.0-7.7); Basophil# 0.09 X10^3/uL; Eosinophil# 0.31 X10^3/uL; Eosinophils% 3.5 % (0-5); Hemoglobin 12.3 g/dL (12.0-15.0); Lymphocyte # 2.22 X10^3/ul (0.83-4.51); Lymphocyte % 25.3 % (19-41); Mean Corp Hgb Conc 32.4 g/dL (32-36); Mean Corpuscular Hgb 30.8 pg (27.0-32.0); Mean Platelet Vol. 11.1 fl (6.2-12.0); Monocyte# 0.65 X10^3/uL; Monocyte% 7.4 % (0-10); NRBC Flagged by Analyzer 0 % (0-5); Neutrophil # 5.45 X10^3/uL (2.7-7.7); Neutrophil % 62.3 % (47-70); Platelet Count 233 K/mm3 (150-450); RBC Distribution Width CV 13.1 % (11.6-14.6); RBC Distribution Width SD 45.2 fl (35.1-43.9); White Blood Count 8.8 K/mm3 (4.4-11.0)
[2024-08-20 12:26] LABS: Erythrocyte Sedimentation Rate 7 mm/hr (0-30)
[2024-08-20 13:12] LABS: ALB/GLOB Ratio 1.2 RATIO (0.9-2.4); AST(SGOT) 28 U/L (15-37); Alanine Aminotransfer ALT/SGPT 41 U/L (13-56); Albumin, Serum 3.7 g/dL (3.2-5.0); Alkaline Phosphatase 139 U/L (45-117); Anion Gap 7 (5-15); BUN 11 mg/dL (7-18); BUN/Creat Ratio 14.2 RATIO (10-20); CRP 3.03 mg/L (0.0-3.0); Calcium,Total 10.1 mg/dL (8.5-10.1); Chloride 106 mmol/L (98-107); Creatinine, Serum 0.78 mg/dL (0.55-1.02); EST Glomerular Filtration Rate 78 mL/min (>60); Est Glom Filt Rate - Afr Amer 94 mL/min (>60); Globulin 3.2 g/dL (2.2-4.2); Glucose 142 mg/dL (74-106); Lipase 19 U/L (13-75); Potassium 3.4 mmol/L (3.5-5.1); Protein, Total 6.9 g/dL (6.4-8.2); Sodium Level 141 mmol/L (136-145)
== END | disposition home or self-care (01) ==
PROVIDERS: Student in an Organized Health Care Education/Training Program; PCP Internal Medicine; Referring Provider Internal Medicine Gastroenterology; Visit Provider Internal Medicine Gastroenterology
DX: R74.8 Abnormal levels of other serum enzymes (principal); R19.7 Diarrhea, unspecified
CPT/HCPCS: 36415; 80053; 83690; 85025; 85652; 86140

== ENCOUNTER → 2024-08-21 | Outpatient (CLI) | payer MEDICARE, OTHER, SELFPAY ==
[2024-08-24 01:07] LABS: Giardia Lamblia, Stool EIA Negative (Negative); Pancreatic Elastase, Fecal 118 (>200)
== END | disposition home or self-care (01) ==
LOC: LABSPEC 07:43
PROVIDERS: Student in an Organized Health Care Education/Training Program; PCP Internal Medicine; Referring Provider Internal Medicine Gastroenterology; Visit Provider Internal Medicine Gastroenterology
DX: R19.7 Diarrhea, unspecified (principal); K58.9 Irritable bowel syndrome, unspecified; R74.8 Abnormal levels of other serum enzymes
CPT/HCPCS: 82653; 83630; 87177; 87209; 87329; 87493; 87506

== ENCOUNTER 2024-09-27 05:23 | Day surgery (SDC) | payer MEDICARE, OTHER, SELFPAY ==
[2024-09-27] VITALS (8 sets, daily range): BP systolic 101–124; BP diastolic 51–74; PULSE 66–79; RESP 14–16; TEMP 36.4–36.7; O2SAT 92–97; BMI 31.1
--- NOTE | 2024-09-27 06:30 | EGD_PTH ---
PATIENT: SHEILA SCHMIDT LOC: EN U#:[id number] AGE/SX: 74/F ROOM: RE09/27/[address]: Dr. Andi Crane DO : 1950 BED: DIS: 09/27/2024 SPEC #: [id number] RECD: 09/27/24 09:44 STATUS: MARIBETH REJavan #: [id number] RALPH: 09/27/24 06:[address]: Andi Crane DEPT: SURGICAL PATHOLOGY RECD BY: Edward Galeas ENTERED: 09/27/24 10:24 SP TYPE: EGD BIOPSY GRACIE DR: Dr. Geoff Snyder MD Tissues: A - Gastric mucous membrane B - Gastric mucous membrane C - Gastric mucous membrane Procedures: Surgery Specimen Level IV HEADER OPERATION: EGD with biopsy PRE-OP DIAGNOSIS: Diarrhea TISSUE SUBMITTED: A- Gastric antral submucosal mass base biopsy, B- Gastric antral submucosal mass center biopsy, C- Gastric body biopsy MICROSCOPIC DIAGNOSIS A. Gastric antral submucosal mass, base biopsy: Reactive gastropathy No evidence of submucosal mass. B. Gastric antral submucosal mass, center biopsy: Hemorrhagic gastric mucosa. No evidence of submucosal mass. C. Gastric body, biopsy: Gastric mucosa, no pathologic diagnosis. No evidence of submucosal mass. See comment. 09/28/2024 COMMENT C. The results of immunohistochemistry for Helicobacter pylori will be reported separately ([id number]). MICROSCOPIC DESCRIPTION Slides are reviewed. GROSS DESCRIPTION A. Received in fixative is one container labeled with the patient's name and designated Gastric antral submucosal mass - base biopsy. The specimen consists of two irregular fragments of morse soft tissue that measures 0.5cm in greatest dimension. The specimen is totally submitted in one cassette. B. Received in fixative is one container labeled with the patient's name and designated Gastric antral submucosal mass- center biopsy. The specimen consists of multiple irregular fragments of morse soft tissue that in aggregate measure 0.6 x 0.5 x 0.2 cm. The specimen is totally submitted in one cassette. C. Received in fixative is one container labeled with the patient's name and designated Gastric body biopsy. The specimen consists of multiple irregular fragments of morse soft tissue that in aggregate measure 0.7 x 0.5 x 0.2 cm. The specimen is totally submitted in one cassette. FATOU 09/27/2024 TC:5 CPT:34204k8
--- NOTE | 2024-09-27 06:30 | IMM_PTH ---
PATIENT: SHEILA SCHMIDT LOC: EN U#:[id number] AGE/SX: 74/F ROOM: RE09/27/[address]: Dr. Andi Crane DO : 1950 BED: DIS: 09/27/2024 SPEC #: [id number] RECD: 09/27/24 10:27 STATUS: MARIBETH REQ #: [id number] RALPH: 09/27/24 06:[address]: Andi Crane DEPT: IMMUNOHISTOCHEMISTRY RECD BY: Vicente aNvarrete ENTERED: 09/27/24 10:28 SP TYPE: IMMUNO OTHR DR: Dr. Geoff Snyder MD Tissues: C - Gastric mucous membrane Procedures: H Pylori (initial) PHYSICIAN & INSTITUTION [place] [id number] SPECIMEN INFORMATION: Tissue Source: C- Gastric body biopsy Clinical Info: Diarrhea Specimen Number: [id number] CPT code: 92838 METHODOLOGY: Deparaffinized sections of prefer/formalin-fixed tissue or PAP/DQ stained slides are incubated with monoclonal/polyclonal antibodies/oligonucleotide probes. Localization is made via biotin free immunoperoxidase method. Appropriate controls are performed and reacted as expected. Results on target cell population are indicated in the following table: RESULTS: ANTIBODY / CLONE RESULT Block C H Pylori (polyclonal) negative These tests were developed and their performance characteristics determined by [facility]. They may not have been cleared or approved by the U.S. Food and Drug Administration. The FDA has determined that such clearance or approval is not necessary. The above immunohistochemical/dualISH markers are ordered and reviewed by the Pathologist. INTERPRETATION: C. Gastric body, biopsy: Negative for Helicobacter pylori organisms. 09/28/2024
--- NOTE | 2024-09-27 06:32 | PRE.ANES_ITS ---
ASA Classification* ASA Classification ASA Classification: 3 Assessment & Plan Anesthesia* Anesthesia Assessment Anesthesia Assessment: Discussed sedation and/or anesthesia options, risks, benefits, and alternatives with patient/parents/legal guardian/POA. Questions invited. The patient/parents/legal guardian/POA seems to understand and agrees to proceed with anesthesia plan. Reviewed the physical assessment, medical history, allergy history and patient home medications list prior to surgery/procedure/anesthetic and documented any changes. Performed airway and anesthesia risk assessments. Anesthesia Type Anesthesia Type: MAC History Source History Obtained from:: Patient and Chart Anesthesia Focused Assessment* Temperature: 98.1 F Pulse Rate: 66 Blood Pressure: 124/74 Respiratory Rate: 16 Pulse Ox: 97 Airway Assessment Mouth opens: >3 cm Mallampati Score: II Teeth Condition: Intact Neck Range of motion (ROM): Full ROM Focused Labs Anesthesia Preop lab: CBC WBC 8.8 K/mm3 (4.4-11.0) 08/20/24 11:57 RBC 4.00 M/mm3 (4.2-5.4) L 08/20/24 11:57 Hgb 12.3 g/dL (12.0-15.0) 08/20/24 11:57 Hct 38.0 % (37-47) 08/20/24 11:57 Plt Count 233 K/mm3 (150-450) 08/20/24 11:57 CHEMISTRY Potassium 3.4 mmol/L (3.5-5.1) L 08/20/24 11:57 Sodium 141 mmol/L (136-145) 08/20/24 11:57 BUN 11 mg/dL (7-18) 08/20/24 11:57 Creatinine 0.78 mg/dL (0.55-1.02) 08/20/24 11:57 Glucose 142 mg/dL (74-106) H 08/20/24 11:57 POC Glucose 125 mg/dL (74-106) H 09/27/24 05:44 COAG PT 13.9 SECONDS (11.7-14.9) 10/27/18 19:15 Pre-Assessment Diagnosis/Proposed Procedure Planned Operative Procedure(s): EGD Anesthesia History Anesthesia History - right of way supervisor: Anesthesia History - right of way supervisor Hx Hospitalization No 09/22/24 11:58 Any Problems With Anesthesia Yes: HARD TIME WAKING AFTER 09/22/24 11:58 LAMINECTOMY Cholinesterase deficiency No 09/22/24 11:58 You/Your Family Experience No 09/22/24 11:58 fever (hyperthermia) with Relationship Recent Exposure to Contagious No 09/27/24 05:50 Disease Does patient have nerve No 09/22/24 11:58 stimulator Patient instructed to have device shut off --Does patient have Pacemaker No 09/27/24 05:50 or ICD? When Was Last Pacemaker Check QUESTION #4 FULL TEXT: You/Your Family Experience fever (hyperthermia) with Anesthesia Last Oral Intake Last Oral intake: Last Oral Intake NPO since 00:00 09/27/24 05:50 Meds taken in AM with sips of water? Meds patient instructed to take am of surgery PONV PONV - right of way supervisor: PONV - right of way supervisor Female Yes 09/22/24 11:58 HX of Motion Sickness No 09/22/24 11:58 HX of N/V After Surgery No 09/22/24 11:58 Non-Smoker Yes 09/22/24 11:58 Duration of Surgery greater No 09/22/24 11:58 than 60 minutes Number of Risk Factors 2 09/22/24 11:58 PONV Score Moderate Risk 09/22/24 11:58 Height & Weight Height & Weight: Anesthesia: Height & Weight Height 5 ft 2 in 09/27/24 05:50 Weight: 77.111 kg 09/27/24 05:50 Body Mass Index (BMI) 31.1 09/27/24 05:50 Respiratory Assessment Respiratory Assessment - right of way supervisor: Respiratory Tract Infection Hx - right of way supervisor Hx Respiratory Tract Infection No 09/22/24 11:58 STOP Sleep Apnea STOP Sleep Apnea - right of way supervisor: STOP Sleep Apnea - right of way supervisor Hx Hypertension Yes: controlled with meds 09/22/24 11:58 Hx Sleep Apnea No 09/22/24 11:58 CPAP BIPAP Do you snore loudly (louder No 09/22/24 11:58 than talking or can be heard Do you often feel tired/ No 09/22/24 11:58 fatigued/ sleepy during daytime? Has anyone observed you stop No 09/22/24 11:58 breathing during sleep? STOP Results Negative 09/22/24 11:58 QUESTION #5 FULL TEXT : Do you snore loudly (louder than talking or can be heard through closed doors)? 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 Specify any problems Hx of Preganancy in last 3 No 09/22/24 11:58 Months Nurse Filling Out Transfusion VCHRISTIN 09/22/24 11:58 & Questions: Date: 09/22/24 09/22/24 11:58 Time: 11:59 09/22/24 11:58 Patient unable to answer at this time (ie. confused, unrespo /Reproduction History /Reproductive History - right of way supervisor: /Reproductive Hx- right of way supervisor Hx Now Gestational Age (in weeks): EDC: Hx Hx Para Hx Section SAB PFSH Medical History Post-menopausal History of Clostridium difficile infection Cancer Diabetes Arthritis Kidney stones Back pain Injury of head and neck Former smoker CPAP (continuous positive airway pressure) dependence Sleep apnea Shortness of breath on exertion History of echocardiogram Hypertension History of CHF (congestive heart failure) Cardiology follow-up encounter Diarrhea History of colon polyps Cardiomyopathy Congestive heart failure Sensorineural hearing loss (SNHL) of left ear (08/2018) History of umbilical hernia Malignant neoplasm of corpus uteri, except isthmus (~03/21/15) History of osteoarthritis Lumbago with sciatica (~2010) Hyperlipidemia Type 2 diabetes mellitus without complication Essential hypertension Home Medications ?Medication ?Instructions ?Recorded ?Last Taken ?Type atorvastatin 10 mg tablet 10 mg PO QHS 10/27/18 09/26/24 History cyclobenzaprine 10 mg tablet 10 mg PO BID PRN pain 10/29/18 09/26/24 History tramadol 50 mg tablet 50 mg PO BID PRN pain 10/29/18 09/26/24 History magnesium oxide 500 mg capsule 250 mg PO DAILY 10/17/20 09/26/24 History mecobalamin (vitamin B12) 1,000 1,000 mcg PO DAILY 10/17/20 09/26/24 History mcg chewable tablet carvedilol 12.5 mg tablet 12.5 mg PO BID 09/22/24 09/27/24 History cetirizine 10 mg tablet (24Hour 10 mg PO DAILY allergy symptoms 09/22/24 09/26/24 History Allergy) furosemide 40 mg tablet 40 mg PO DAILY 09/22/24 09/26/24 History gabapentin 400 mg capsule 800 mg PO BID 09/22/24 09/27/24 History metformin 750 mg tablet,extended 750 mg PO BID 09/22/24 09/26/24 History release 24 hr omeprazole 40 mg capsule,delayed 40 mg PO DAILY 09/22/24 09/26/24 05:56 History release vitamin D3 125 mcg (5,000 1 cap PO DAILY 09/22/24 09/26/24 History unit)-vitamin K2 90 mcg capsule Allergy/AdvReac Type Severity Reaction Status Date / Time codeine Allergy Unknown Verified 09/27/24 05:55 aspirin (From Percodan) AdvReac Other Verified 09/27/24 05:55 black cohosh AdvReac Other Verified 09/27/24 05:55 oxycodone HCl (From Percodan) AdvReac Other Verified 09/27/24 05:55 oxycodone terephthalate AdvReac Other Verified 09/27/24 05:55 (From Percodan) Family History Father Diabetes Cancer lung, skin Mother Heart disease Hypertension Brother Cancer bladder, skin Surgical History History of cardiac catheterization Hx of thumb surgery History of colonoscopy (~2014) History of cardiac defibrillator placement History of permanent cardiac pacemaker placement History of total abdominal hysterectomy History of cholecystectomy History of laminectomy (07/09/11) Social History Smoking Status: Former smoker Review of Systems (Anesthesia) ROS Narrative System reviewed and no additional complaints, except as documented.
--- NOTE | 2024-09-27 06:37 | PCM.HP.BLA ---
History and Physical Date of Admission: 09/27/24 Chief Complaint: abdominal pain, hx of elevated pancreatic enzymes Details: SHEILA SCHMIDT, is a 74 F who presents to the office today for establishment with [facility]. Pt has a hx of cardiomyopathy, congestive alexander failure, HLD, DM and HTN. She is here today for evaluation after struggling with abdominal pain for a few months now. In May she was moving furniture and that is when this all started. Her PCP did blood testing and she was found to have elevated lipase and amylase. After two weeks they were re drawn and were wnl but she continues to have these flares of LUQ and epigastric pain. SHe has also had worsening diarrhea over the past couple of months. She has been on metformin for 15 years now and had always felt it was a side effect until now. She has been eating a very healthy diet over the past two months in order to control some of her symptoms. She avoids fried foods on most occasions because it worsens her diarrhea. She is s/p cholecystectomy over 20 years ago. Around the same time as the abdominal symptoms started she began having itching on her abdomen with no skin changes or rash. She has had a 20lbs weight loss over the past year due to not having an appetite. She had a colonoscopy a few months ago which was normal.She is very active for her age and would like to get this figured out so she continue taking care of her yard and horses. ROS Const Constitutional: Positive for weakness; No fatigue or weight change Eyes Eyes: No change in vision ENT ENT: No abnormal hearing, difficulty swallowing, mouth lesions, tongue swelling or throat swelling Resp Respiratory: No cough or shortness of breath Cardio Cardiology: No chest pain at rest, chest pain with exertion, shortness of breath or dyspnea on exertion Gastro GI: Positive for abdominal pain and diarrhea; No difficulty swallowing Genitourinary-Female: No difficulty urinating or burning urination Musc Musculoskeletal: Positive for muscle weakness, numbness, stiffness, tingling and Arthritis Skin Skin: Positive for itchy eyes Neuro Neurology: Positive for weakness, numbness and tingling; No abnormal hearing, confusion or memory loss Psych Psychiatric: No anxiety, No confusion and No memory loss Endo Endocrine: No fatigue or weight change Aller/Imm Allergy/Immunologic: Positive for itchy eyes; No throat swelling or tongue swelling Bryce/Lymp Hematologic/Lymphatic: No easy bleeding, easy bruising or enlarged lymph nodes Exam Const General: cooperative and comfortable Nutritional Appearance: average body habitus and well nourished HENPR Head: normal to inspection Ears: hearing grossly normal bilaterally Nose: external nose normal Face and sinus: normal facial exam Eyes General: appearance normal, both eyes and all related structures Neck Neck: normal visual inspection Chest Chest palpation & inspection: normal inspection of the chest Resp Effort & Inspection: normal respiratory effort GI Inspection: normal to inspection Skin General: no rashes or lesions noted Neuro General: patient alert Extrem General: normal to inspection Psych Affect: normal affect Assessment and Plan Assessment and Plan (1) Diarrhea: Status: Acute Qualifiers: Diarrhea type: unspecified type Qualified Code(s): R19.7 - Diarrhea, unspecified Plan: Pt is a 74 yo female with PMHx of Dm, HTN, and cardiomyopathy here today for evaluation of abdominal and epigastric pain. Her pain has been going on for a few months now. In May she had elevated pancreatic enzymes but then when re drawn two weeks later were wnl. She is s/p cholecystectomy 20 years ago. I discussed possible diagnoses of SOD, gastritis, duodenitis or ulcer. She feels this is all related to her stomach. She has never had an EGD before. WE will start workup with an EGD and consider HIDA scan if we do not find etiology. I will order lipase and CMP. Regarding her diarrhea, I will order stool testing with enteric pathogen panel, Ova/parasites, Giardia, elastase, lactoferrin and calprotectin. She is agreeable to plan. -EGD -Blood work and stool tests -Consider HIDA scan (2) Elevated lipase: Status: Acute Orders: Orders Lipase Today R19.7 - Diarrhea, unspecified, R74.8 - Abnormal levels of other serum enzymes Comprehensive Metabolic Profil Today R19.7 - Diarrhea, unspecified, R74.8 - Abnormal levels of other serum enzymes CRP Today R19.7 - Diarrhea, unspecified, R74.8 - Abnormal levels of other serum enzymes Erythrocyte Sed Rate Today R19.7 - Diarrhea, unspecified, R74.8 - Abnormal levels of other serum enzymes ENTERIC PATHOGEN PANEL STOOL Today K58.9 - Irritable bowel syndrome, unspecified, R19.7 - Diarrhea, unspecified, R74.8 - Abnormal levels of other serum enzymes Ova and Parasites 8623 Today K58.9 - Irritable bowel syndrome, unspecified, R19.7 - Diarrhea, unspecified, R74.8 - Abnormal levels of other serum enzymes Pancreatic Elastase, Fecal Today R19.7 - Diarrhea, unspecified, R74.8 - Abnormal levels of other serum enzymes Stool Lactoferrin/WBC Today K58.9 - Irritable bowel syndrome, unspecified, R19.7 - Diarrhea, unspecified, R74.8 - Abnormal levels of other serum enzymes Giardia Lamblia, Stool EIA Today R19.7 - Diarrhea, unspecified, R74.8 - Abnormal levels of other serum enzymes CBC W/Diff, Automated Today R19.7 - Diarrhea, unspecified, R74.8 - Abnormal levels of other serum enzymes CDIFF (PCR) Today R19.7 - Diarrhea, unspecified, R74.8 - Abnormal levels of other serum enzymes I have examined the patient and the H&P has been reviewed. There are no clinical changes since date of exam.
[2024-09-27 06:41] LABS: Bedside Glucose 125 mg/dL (74-106)
--- NOTE | 2024-09-27 07:06 | PCM.POST.ANE ---
Anesthesia: Postop Eval I Current Vital Signs Temperature: 97.7 F Pulse Rate: 79 Blood Pressure: 103/58 Respiratory Rate: 14 Pulse Ox: 94 Oxygen Delivery Method: Room Air Assessment Airway patent: Yes Spontaneous unlabored respirations: Yes Mental status: Asleep nausea: No Vomiting: No Anesthesia Complication: No Fluid Hydration Crystalloid volume administer (ml): 30 Total IV fluid infused: 30 Progress Note Anesthesia document: Postop Eval 1 completed: Yes
--- NOTE | 2024-09-27 07:08 | OP.EGD_ITS ---
Patient Name: Nakul Gutierrez Procedure Date: 09/27/2024 6:24 AM Date of : 1950 Age: 74 Procedure: Upper GI endoscopy Indications: Epigastric abdominal pain Providers: DO Gaetano Baptiste MD: Geoff Snyder Medicines: Monitored Anesthesia Care Patient Profile: This is a 74 year old female. Refer to note in patient chart for documentation of history and physical. Patient has symptoms of acute epigastric abdominal pain. Complications: No immediate complications. Procedure: Pre-Anesthesia Assessment: - Prior to the procedure, a History and Physical was performed, and patient medications and allergies were reviewed. The patient is competent. The risks and benefits of the procedure and the sedation options and risks were discussed with the patient. All questions were answered and informed consent was obtained. Patient identification and proposed procedure were verified by the physician in the pre-procedure area. Mental Status Examination: alert and oriented. Airway Examination: normal oropharyngeal airway and neck mobility. Respiratory Examination: clear to auscultation. CV Examination: normal. Prophylactic Antibiotics: The patient does not require prophylactic antibiotics. Prior Anticoagulants: The patient has taken no anticoagulant or antiplatelet agents except for NSAID medication. ASA Grade Assessment: II - A patient with mild systemic disease. After reviewing the risks and benefits, the patient was deemed in satisfactory condition to undergo the procedure. The anesthesia plan was to use monitored anesthesia care (MAC). Immediately prior to administration of medications, the patient was re-assessed for adequacy to receive sedatives. The heart rate, respiratory rate, oxygen saturations, blood pressure, adequacy of pulmonary ventilation, and response to care were monitored throughout the procedure. The physical status of the patient was re-assessed after the procedure. After obtaining informed consent, the endoscope was passed under direct vision. Throughout the procedure, the patient's blood pressure, pulse, and oxygen saturations were monitored continuously. The Endoscope was introduced through the mouth, and advanced to the second part of duodenum. The upper GI endoscopy was accomplished without difficulty. The patient tolerated the procedure well. Scope In: 6:47:48 AM Scope Out: 6:56:26 AM Total Procedure Duration Time 0 hours 8 minutes 38 seconds Findings: The examined esophagus was normal. A large, submucosal, non-circumferential mass with no bleeding and no stigmata of recent bleeding was found in the gastric antrum. Biopsies were taken with a cold forceps for histology. Verification of patient identification for the specimen was done. Estimated blood loss was minimal. A few dispersed 5 mm erosions with no stigmata of recent bleeding were found in the cardia, in the gastric body and in the gastric antrum. Biopsies were taken with a cold forceps for histology. Verification of patient identification for the specimen was done. Biopsies were taken with a cold forceps for Helicobacter pylori testing. Verification of patient identification for the specimen was done. Estimated blood loss was minimal. The first portion of the duodenum was normal. Impression: - Normal esophagus. 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 Biopsied. - Erosive gastropathy with no stigmata of recent bleeding. Biopsied. - Normal first portion of the duodenum. Recommendation: - Discharge patient to home. - Resume previous diet. - Continue present medications. - Await pathology results. Procedure Code(s): --- Professional --- 06590, Esophagogastroduodenoscopy, flexible, transoral; with biopsy, single or multiple CPT copyright 2021 [employer]. All rights reserved. The codes documented in this report are preliminary and upon revenue inspector review may be revised to meet current compliance requirements. Andi Crane DO 09/27/2024 7:07:04 AM This report has been signed electronically. Number of Addenda: 0 Note Initiated On: 09/27/2024 6:24 AM
--- NOTE | 2024-09-27 07:08 | OP.CCLET_ITS ---
09/27/2024 Geoff Snyder [address] [place] [address] Re : Upper GI endoscopy procedure for Nakul Gutierrez Dear Dr. Snyder This procedure was performed on Friday, September 27, 2024. My impressions and recommendations are as follows: Impressions : - Normal esophagus. 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 Biopsied. - Erosive gastropathy with no stigmata of recent bleeding. Biopsied. - Normal first portion of the duodenum. Recommendations : - Discharge patient to home. - Resume previous diet. - Continue present medications. - Await pathology results. My findings are described in the full procedure note, which is enclosed. If I can be of further assistance, please feel free to contact me at . Sincerely, Andi Crane, 09/27/2024 7:07:04 AM This report has been signed electronically.
--- NOTE | 2024-09-27 10:18 | PCM.POSTANE2 ---
Anesthesia Postop Eval I Sum Postop Eval Completion status Anesthesia document: Postop Eval 1 completed: Yes Anesthesia Postop Eval I Summary Anesthesia Postop Eval I Summary: Anesthesia Postop Eval I: Assessment Summary Airway patent Yes 09/27/24 07:07 [email or web address] Spontaneous unlabored Yes 09/27/24 07:07 [email or web address] respirations Mental status Asleep 09/27/24 07:07 [email or web address] nausea No 09/27/24 07:07 [email or web address] Vomiting No 09/27/24 07:07 [email or web address] Anesthesia Postop Eval I: Fluid Summary Crystalloid volume administer 30 09/27/24 07:07 [email or web address] (ml) Colloids volume administered ( ml) Blood Product volume administered (ml) Total IV fluid infused 30 09/27/24 07:07 [email or web address] Anesthesia Postop Eval I: Summary Notes Anesthesia Complication No 09/27/24 07:07 [email or web address] Anesthesia Complication Comment: Post-operative progress note Anesthesia: Postop Eval II Evaluation Mental status: Awake Pain Level: 0 nausea: No Vomiting: No
[2024-09-30 09:09] LABS: Anti-Parietal Cell AB, QN 9.7 Units (0.0-20.0); Dopamine, Pl 72 pg/mL (0-48); Epinephrine, Pl <15 pg/mL (0-62); Gastrin, Serum 295 pg/mL (0-115); Norepinephrine, Pl 1741 pg/mL (0-874)
== END 2024-09-27 07:59 | disposition home or self-care (01) ==
LOC: EN 05:23 → AC 05:24
PROVIDERS: PCP Internal Medicine; Referring Provider Internal Medicine; Visit Provider Internal Medicine Gastroenterology
PROC: 0DJ08ZZ Inspection of Upper Intestinal Tract, Via Natural or Artificial Opening Endoscopic (ICD-10-PCS; CPT 43235; principal; 2024-09-27 06:25)
DX: K31.89 Other diseases of stomach and duodenum (principal); I11.0 Hypertensive heart disease with heart failure; I50.9 Heart failure, unspecified; I42.9 Cardiomyopathy, unspecified; E11.9 Type 2 diabetes mellitus without complications; R19.7 Diarrhea, unspecified; R74.8 Abnormal levels of other serum enzymes; E78.5 Hyperlipidemia, unspecified; K58.9 Irritable bowel syndrome, unspecified; M19.90 Unspecified osteoarthritis, unspecified site; G47.30 Sleep apnea, unspecified; Z87.19 Personal history of other diseases of the digestive system; Z86.19 Personal history of other infectious and parasitic diseases; Z90.49 Acquired absence of other specified parts of digestive tract; Z79.84 Long term (current) use of oral hypoglycemic drugs; Z95.810 Presence of automatic (implantable) cardiac defibrillator; Z87.891 Personal history of nicotine dependence; Z79.899 Other long term (current) drug therapy; Z86.0100 Personal history of colon polyps, unspecified
CPT/HCPCS: 43239; 36415; 82384; 82941; 82962; 83516; 86316; 86340; 88305; 88342; A4216; J2405

== ENCOUNTER → 2024-09-29 | Outpatient (CLI) | payer MEDICARE, OTHER, SELFPAY ==
[2024-10-06 13:08] LABS: Dopamine, 24Ur 229 ug/24 hr (0-510); Dopamine, UR 109 ug/L (Undefined); Epinephrine, 24Ur < 6 ug/24 hr (0-20); Epinephrine, Ur < 3 ug/L (Undefined); Norepinephrine, 24Ur 59 ug/24 hr (0-135); Norepinephrine, Ur 28 ug/L (Undefined)
== END | disposition home or self-care (01) ==
LOC: LABSPEC 07:36
PROVIDERS: PCP Internal Medicine; Referring Provider Internal Medicine Gastroenterology; Visit Provider Internal Medicine Gastroenterology
DX: R74.8 Abnormal levels of other serum enzymes (principal); R19.7 Diarrhea, unspecified
CPT/HCPCS: 81050; 82384

== ENCOUNTER 2024-10-14 06:27 | Day surgery (SDC) | payer MEDICARE, OTHER, SELFPAY ==
[2024-10-14] VITALS (7 sets, daily range): BP systolic 112–161; BP diastolic 62–87; PULSE 73–81; RESP 16; TEMP 36.2–36.4; O2SAT 94–99; BMI 31.7
--- NOTE | 2024-10-14 06:47 | HP.PCM_ITS ---
History and Physical Date of Admission: 10/14/24 Chief Complaint: abdominal pain, hx of elevated pancreatic enzymes Details: SHEILA SCHMIDT, is a 74 F who presents to the office today for establishment with [facility]. Pt has a hx of cardiomyopathy, congestive alexander failure, HLD, DM and HTN. She is here today for evaluation after struggling with abdominal pain for a few months now. In May she was moving furniture and that is when this all started. Her PCP did blood testing and she was found to have elevated lipase and amylase. After two weeks they were re drawn and were wnl but she continues to have these flares of LUQ and epigastric pain. SHe has also had worsening diarrhea over the past couple of months. She has been on metformin for 15 years now and had always felt it was a side effect until now. She has been eating a very healthy diet over the past two months in order to control some of her symptoms. She avoids fried foods on most occasions because it worsens her diarrhea. She is s/p cholecystectomy over 20 years ago. Around the same time as the abdominal symptoms started she began having itching on her abdomen with no skin changes or rash. She has had a 20lbs weight loss over the past year due to not having an appetite. She had a colonoscopy a few months ago which was normal.She is very active for her age and would like to get this figured out so she continue taking care of her yard and horses. She underwent an upper endoscopy on myself and was discovered to have a possible ischemic submucosal mass versus pancreatic rest that was seen in the gastric antrum. Biopsies just show chronic inflammation. She comes back in today for repeat upper endoscopy. ROS Const Constitutional: Positive for weakness; No fatigue or weight change Eyes Eyes: No change in vision ENT ENT: No abnormal hearing, difficulty swallowing, mouth lesions, tongue swelling or throat swelling Resp Respiratory: No cough or shortness of breath Cardio Cardiology: No chest pain at rest, chest pain with exertion, shortness of breath or dyspnea on exertion Gastro GI: Positive for abdominal pain and diarrhea; No difficulty swallowing Genitourinary-Female: No difficulty urinating or burning urination Musc Musculoskeletal: Positive for muscle weakness, numbness, stiffness, tingling and Arthritis Skin Skin: Positive for itchy eyes Neuro Neurology: Positive for weakness, numbness and tingling; No abnormal hearing, confusion or memory loss Psych Psychiatric: No anxiety, No confusion and No memory loss Endo Endocrine: No fatigue or weight change Aller/Imm Allergy/Immunologic: Positive for itchy eyes; No throat swelling or tongue swelling Bryce/Lymp Hematologic/Lymphatic: No easy bleeding, easy bruising or enlarged lymph nodes Exam Const General: cooperative and comfortable Nutritional Appearance: average body habitus and well nourished [facility] Head: normal to inspection Ears: hearing grossly normal bilaterally Nose: external nose normal Face and sinus: normal facial exam Eyes General: appearance normal, both eyes and all related structures Neck Neck: normal visual inspection Chest Chest palpation & inspection: normal inspection of the chest Resp Effort & Inspection: normal respiratory effort GI Inspection: normal to inspection Skin General: no rashes or lesions noted Neuro General: patient alert Extrem General: normal to inspection Psych Affect: normal affect Assessment and Plan Assessment and Plan (1) Diarrhea: Status: Acute Qualifiers: Diarrhea type: unspecified type Qualified Code(s): R19.7 - Diarrhea, u nspecified Plan: Pt is a 74 yo female with PMHx of Dm, HTN, and cardiomyopathy here today for evaluation of abdominal and epigastric pain. Her pain has been going on for a few months now. In May she had elevated pancreatic enzymes but then when re drawn two weeks later were wnl. She is s/p cholecystectomy 20 years ago. I discussed possible diagnoses of SOD, gastritis, duodenitis or ulcer. She feels this is all related to her stomach. She has never had an EGD before. WE will start workup with an EGD and consider HIDA scan if we do not find etiology. I will order lipase and CMP. Regarding her diarrhea, I will order stool testing with enteric pathogen panel, Ova/parasites, Giardia, elastase, lactoferrin and calprotectin. She is agreeable to plan. -EGD -Blood work and stool tests -Consider HIDA scan (2) Elevated lipase: Status: Acute Orders: (3) gastric submucosal mass Orders Lipase Today R19.7 - Diarrhea, unspecified, R74.8 - Abnormal levels of other serum enzymes Comprehensive Metabolic Profil Today R19.7 - Diarrhea, unspecified, R74.8 - Abnormal levels of other serum enzymes CRP Today R19.7 - Diarrhea, unspecified, R74.8 - Abnormal levels of other serum enzymes Erythrocyte Sed Rate Today R19.7 - Diarrhea, unspecified, R74.8 - Abnormal levels of other serum enzymes ENTERIC PATHOGEN PANEL STOOL Today K58.9 - Irritable bowel syndrome, unspecified, R19.7 - Diarrhea, unspecified, R74.8 - Abnormal levels of other serum enzymes Ova and Parasites 8623 Today K58.9 - Irritable bowel syndrome, unspecified, R19.7 - Diarrhea, unspecified, R74.8 - Abnormal levels of other serum enzymes Pancreatic Elastase, Fecal Today R19.7 - Diarrhea, unspecified, R74.8 - Abnormal levels of other serum enzymes Stool Lactoferrin/WBC Today K58.9 - Irritable bowel syndrome, unspecified, R19.7 - Diarrhea, unspecified, R74.8 - Abnormal levels of other serum enzymes Giardia Lamblia, Stool EIA Today R19.7 - Diarrhea, unspecified, R74.8 - Abnormal levels of other serum enzymes CBC W/Diff, Automated Today R19.7 - Diarrhea, unspecified, R74.8 - Abnormal levels of other serum enzymes CDIFF (PCR) Today R19.7 - Diarrhea, unspecified, R74.8 - Abnormal levels of other serum enzymes I have examined the patient and the H&P has been reviewed. There are no clinical changes since date of exam.
--- NOTE | 2024-10-14 07:14 | PRE.ANES_ITS ---
ASA Classification* ASA Classification ASA Classification: 3 Assessment & Plan Anesthesia* Anesthesia Assessment Anesthesia Assessment: Discussed sedation and/or anesthesia options, risks, benefits, and alternatives with patient/parents/legal guardian/POA. Questions invited. The patient/parents/legal guardian/POA seems to understand and agrees to proceed with anesthesia plan. Reviewed the physical assessment, medical history, allergy history and patient home medications list prior to surgery/procedure/anesthetic and documented any changes. Performed airway and anesthesia risk assessments. Anesthesia Type Anesthesia Type: MAC Anesthesia Focused Assessment* Temperature: 97.6 F Pulse Rate: 81 Blood Pressure: 161/87 Respiratory Rate: 16 Pulse Ox: 99 Airway Assessment Mouth opens: >3 cm Mallampati Score: II Focused Labs Anesthesia Preop lab: CBC WBC 8.8 K/mm3 (4.4-11.0) 08/20/24 11:57 RBC 4.00 M/mm3 (4.2-5.4) L 08/20/24 11:57 Hgb 12.3 g/dL (12.0-15.0) 08/20/24 11:57 Hct 38.0 % (37-47) 08/20/24 11:57 Plt Count 233 K/mm3 (150-450) 08/20/24 11:57 CHEMISTRY Potassium 3.4 mmol/L (3.5-5.1) L 08/20/24 11:57 Sodium 141 mmol/L (136-145) 08/20/24 11:57 BUN 11 mg/dL (7-18) 08/20/24 11:57 Creatinine 0.78 mg/dL (0.55-1.02) 08/20/24 11:57 Glucose 142 mg/dL (74-106) H 08/20/24 11:57 POC Glucose 125 mg/dL (74-106) H 09/27/24 05:44 COAG PT 13.9 SECONDS (11.7-14.9) 10/27/18 19:15 Pre-Assessment Diagnosis/Proposed Procedure Planned Operative Procedure(s): EGD Anesthesia History 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 When Was Last Pacemaker Check QUESTION #4 FULL TEXT: You/Your Family Experience fever (hyperthermia) with Anesthesia Last Oral Intake Last Oral intake: Last Oral Intake NPO since Meds taken in AM with sips of water? 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 member: PONV - prepared foods production team member Female Yes 10/11/24 11:02 HX of Motion Sickness No 10/11/24 11:02 HX of N/V After Surgery No 10/11/24 11:02 Non-Smoker Yes 10/11/24 11:02 Duration of Surgery greater No 10/11/24 11:02 than 60 minutes Number of Risk Factors 2 10/11/24 11:02 PONV Score Moderate Risk 10/11/24 11:02 Height & Weight Height & Weight: Anesthesia: Height & Weight Height 5 ft 2 in 10/14/24 06:45 Weight: 78.8 kg 10/14/24 06:45 Body Mass Index (BMI) 31.7 10/14/24 06:45 Respiratory Assessment Respiratory Assessment - prepared foods production team member: Respiratory Tract Infection Hx - prepared foods production team member Hx Respiratory Tract Infection No 10/11/24 11:02 STOP Sleep Apnea STOP Sleep Apnea - prepared foods production team member: STOP Sleep Apnea - prepared foods production team member Hx Hypertension Yes: controlled with meds 10/11/24 11:02 Hx Sleep Apnea No 10/11/24 11:02 CPAP BIPAP Do you snore loudly (louder No 10/11/24 11:02 than talking or can be heard Do you often feel tired/ No 10/11/24 11:02 fatigued/ sleepy during daytime? Has anyone observed you stop No 10/11/24 11:02 breathing during sleep? STOP Results Negative 10/11/24 11:02 QUESTION #5 FULL TEXT : Do you snore loudly (louder than talking or can be heard through closed doors)? 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 Specify any problems Hx of Preganancy in last 3 No 10/11/24 11:02 Months Nurse Filling Out Transfusion VLEHLIVONIA 10/11/24 11:02 & Questions: Date: 10/11/24 10/11/24 11:02 Time: 11:09 10/11/24 11:02 Patient unable to answer at this time (ie. confused, unrespo /Reproduction History /Reproductive History - prepared foods production team member: /Reproductive Hx- prepared foods production team member Hx Now No 10/11/24 11:02 Gestational Age (in weeks): EDC: Hx Hx Para Hx [facility] Medical History Post-menopausal History of Clostridium difficile infection Cancer Diabetes Arthritis Kidney stones Back pain Injury of head and neck Former smoker CPAP (continuous positive airway pressure) dependence Sleep apnea Shortness of breath on exertion History of echocardiogram Hypertension History of CHF (congestive heart failure) Cardiology follow-up encounter Diarrhea History of colon polyps Cardiomyopathy Congestive heart failure Sensorineural hearing loss (SNHL) of left ear (08/2018) History of umbilical hernia Malignant neoplasm of corpus uteri, except isthmus (~03/21/15) History of osteoarthritis Lumbago with sciatica (~2010) Hyperlipidemia Type 2 diabetes mellitus without complication Essential hypertension Home Medications ?Medication ?Instructions ?Recorded ?Last Taken ?Type atorvastatin 10 mg tablet 10 mg PO QHS 10/27/18 09/26/24 History cyclobenzaprine 10 mg tablet 10 mg PO BID PRN pain 10/29/18 09/26/24 History tramadol 50 mg tablet 50 mg PO BID PRN pain 10/29/18 09/26/24 History magnesium oxide 500 mg capsule 250 mg PO DAILY 10/17/20 09/26/24 History mecobalamin (vitamin B12) 1,000 1,000 mcg PO DAILY 10/17/20 09/26/24 History mcg chewable tablet carvedilol 12.5 mg tablet 12.5 mg PO BID 09/22/24 10/14/24 History furosemide 40 mg tablet 40 mg PO DAILY 09/22/24 09/26/24 History gabapentin 400 mg capsule 800 mg PO BID 09/22/24 09/27/24 History metformin 750 mg tablet,extended 750 mg PO BID 09/22/24 09/26/24 History release 24 hr omeprazole 40 mg capsule,delayed 40 mg PO DAILY 09/22/24 09/26/24 05:56 History release vitamin D3 125 mcg (5,000 1 cap PO DAILY 09/22/24 09/26/24 History unit)-vitamin K2 90 mcg capsule Allergy/AdvReac Type Severity Reaction Status Date / Time codeine Allergy Unknown Verified 10/14/24 06:43 black cohosh AdvReac Other Verified 10/14/24 06:43 oxycodone HCl (From Percodan) AdvReac Other Verified 10/14/24 06:43 oxycodone terephthalate AdvReac Other Verified 10/14/24 06:43 (From Percodan) Family History Father Diabetes Cancer lung, skin Mother Heart disease Hypertension Brother Cancer bladder, skin Surgical History History of esophagogastroduodenoscopy (EGD) History of cardiac catheterization Hx of thumb surgery History of colonoscopy (~2014) History of cardiac defibrillator placement History of permanent cardiac pacemaker placement History of total abdominal hysterectomy History of cholecystectomy History of laminectomy (07/09/11) Social History Smoking Status: Former smoker Review of Systems (Anesthesia) ROS Narrative System reviewed and no additional complaints, except as documented.
--- NOTE | 2024-10-14 07:30 | EGD_PTH ---
PATIENT: SHEILA SCHMIDT LOC: EN U#:[id number] AGE/SX: 74/F ROOM: RE10/14/[address]: Dr. Andi Crane DO : 1950 BED: DIS: 10/14/2024 SPEC #: [id number] RECD: 10/14/24 11:39 STATUS: MARIBETH REJavan #: [id number] RALPH: 10/14/24 07:[address]: Andi Crane DEPT: SURGICAL PATHOLOGY RECD BY: Laverne Liao ENTERED: 10/14/24 12:24 SP TYPE: EGD [facility]OP[facility] DR: Dr. Geoff Snyder MD Tissues: A - Gastric mucous membrane B - Gastric mucous membrane Procedures: Surgery Specimen Level IV HEADER OPERATION: EGD PRE-OP DIAGNOSIS: Abdominal pain, history of elevated pancreatic enzymes TISSUE SUBMITTED: A- Gastric mass, B- Gastric mass base biopsy MICROSCOPIC DIAGNOSIS A. Gastric mass, biopsy: Submucosal leiomyoma. Mildly hyperplastic gastric epithelium. Chronic gastritis, mild. See comment. B. Gastric mass base, biopsy: Fragments of gastric mucosa with chronic inflammation. See comment. AM. 10/15/2024 COMMENT A. Immunohistochemistry ([id number]) supports the above diagnosis. B. The results of immunohistochemistry for Helicobacter pylori will be reported separately ([id number]). MICROSCOPIC DESCRIPTION Slides are reviewed. GROSS DESCRIPTION A. Received in fixative is one container labeled with the patient's name and designated Gastric mass. The specimen consists of a polypoid fragment of morse tissue measuring 1.5 x 1.0 x 0.8cm. The specimen is bisected and totally submitted in one cassette. B. Received in fixative is one container labeled with the patient's name and designated Gastric mass base biopsy. The specimen consists of multiple irregular fragments of light morse soft tissue that in aggregate measure 0.7 x 0.6 x 0.1 cm. The specimen is totally submitted in one cassette. AM. 10/14/2024 TC:1 CPT:33621v6
--- NOTE | 2024-10-14 07:30 | IMM_PTH ---
PATIENT: SHEILA SCHMIDT LOC: EN U#:[id number] AGE/SX: 74/F ROOM: RE10/14/[address]: Dr. Andi Crane DO : 1950 BED: DIS: 10/14/2024 SPEC #: [id number] RECD: 10/14/24 13:58 STATUS: MARIBETH REQ #: [id number] RALPH: 10/14/24 07:[address]: Andi Crane DEPT: IMMUNOHISTOCHEMISTRY RECD BY: Vicente Navarrete ENTERED: 10/14/24 13:58 SP TYPE: IMMUNO OTHR DR: Dr. Geoff Snyder MD Tissues: A - Gastric mucous membrane B - Gastric mucous membrane Procedures: H Pylori (initial) SMA (add) CD34 (add) DESMIN (add) KI-67 (add) P53 (add) Vimentin (add) SMM (add) Pankeratin (initial) PHYSICIAN & INSTITUTION [place] [id number] SPECIMEN INFORMATION: Tissue Source: A- Gastric mass, B- Gastric mass base biopsy Clinical Info: Abdominal pain, history of elevated pancreatic enzymes Specimen Number: [id number] A,B CPT code: 93140l8,48291o7 METHODOLOGY: Deparaffinized sections of prefer/formalin-fixed tissue or PAP/DQ stained slides are incubated with monoclonal/polyclonal antibodies/oligonucleotide probes. Localization is made via biotin free immunoperoxidase method. Appropriate controls are performed and reacted as expected. Results on target cell population are indicated in the following table: RESULTS: ANTIBODY / CLONE RESULT Block A AE1-3 (AE1/AE3/PCK26) negative Vimentin (V9) negative CD34 (QBEnd-10) negative Actin (1A4) positive Myosin (simms1) positive Desmin (CE-R-11) positive P53 (DO-7) negative, null pattern Ki-67 (30-9) positive, rare Block B H Pylori (polyclonal) negative These tests were developed and their performance characteristics determined by [facility]. They may not have been cleared or approved by the U.S. Food and Drug Administration. The FDA has determined that such clearance or approval is not necessary. The above immunohistochemical/dualISH markers are ordered and reviewed by the Pathologist. INTERPRETATION: A. Gastric mass, biopsy: Consistent with leiomyoma. B. Gastric mass base, biopsy: Negative for Helicobacter pylori organisms. AM. 10/18/2024
--- NOTE | 2024-10-14 08:04 | OP.CCLET_ITS ---
10/14/2024 Geoff Snyder [address] [place] [address] Re : Upper GI endoscopy procedure for Nakul Gutierrez Dear Dr. Snyder This procedure was performed on October. My impressions and recommendations are as follows: Impressions : - Normal esophagus. - A large amount of food (residue) in the stomach. 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 Complete removal was accomplished. Biopsied. - No gross lesions in the first portion of the duodenum. Recommendations : - Discharge patient to home. - Resume previous diet. - Continue present medications. - Await pathology results. My findings are described in the full procedure note, which is enclosed. If I can be of further assistance, please feel free to contact me at . Sincerely, Andi Crane, 10/14/2024 8:03:56 AM This report has been signed electronically.
--- NOTE | 2024-10-14 08:04 | OP.EGD_ITS ---
Patient Name: Nakul Gutierrez Procedure Date: 10/14/2024 7:41 AM Date of : 1950 Age: 74 Procedure: Upper GI endoscopy Indications: Epigastric abdominal pain Providers: Andi Crane DO Referring MD: Geoff Snyder Medicines: Monitored Anesthesia Care Patient Profile: This is a 74 year old female. Refer to note in patient chart for documentation of history and physical. Patient has symptoms of chronic epigastric abdominal pain. Complications: No immediate complications. Procedure: Pre-Anesthesia Assessment: - Prior to the procedure, a History and Physical was performed, and patient medications and allergies were reviewed. The patient is competent. The risks and benefits of the procedure and the sedation options and risks were discussed with the patient. All questions were answered and informed consent was obtained. Patient identification and proposed procedure were verified by the physician in the pre-procedure area. Mental Status Examination: alert and oriented. Airway Examination: normal oropharyngeal airway and neck mobility. Respiratory Examination: clear to auscultation. CV Examination: normal. Prophylactic Antibiotics: The patient does not require prophylactic antibiotics. Prior Anticoagulants: The patient has taken no anticoagulant or antiplatelet agents except for NSAID medication. ASA Grade Assessment: II - A patient with mild systemic disease. After reviewing the risks and benefits, the patient was deemed in satisfactory condition to undergo the procedure. The anesthesia plan was to use monitored anesthesia care (MAC). Immediately prior to administration of medications, the patient was re-assessed for adequacy to receive sedatives. The heart rate, respiratory rate, oxygen saturations, blood pressure, adequacy of pulmonary ventilation, and response to care were monitored throughout the procedure. The physical status of the patient was re-assessed after the procedure. After obtaining informed consent, the endoscope was passed under direct vision. Throughout the procedure, the patient's blood pressure, pulse, and oxygen saturations were monitored continuously. The Endoscope was introduced through the mouth, and advanced to the second part of duodenum. The upper GI endoscopy was accomplished without difficulty. The patient tolerated the procedure well. Scope In: 7:49:36 AM Scope Out: 7:58:27 AM Total Procedure Duration Time 0 hours 8 minutes 51 seconds Findings: The examined esophagus was normal. A large amount of food (residue) was found in the entire examined stomach. A medium-sized, polypoid, non-circumferential mass with no bleeding and no stigmata of recent bleeding was found in the gastric antrum. The polyp was removed with a hot snare. Resection and retrieval were complete. Biopsies were taken with a cold forceps for histology. Verification of patient identification for the specimen was done. Estimated blood loss was minimal. To close a defect after polypectomy, one hemostatic clip was successfully placed. 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 There was no bleeding at the end of the procedure. No gross lesions were noted in the first portion of the duodenum. Impression: - Normal esophagus. - A large amount of food (residue) in the stomach. 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 Complete removal was accomplished. Biopsied. - No gross lesions in the first portion of the duodenum. Recommendation: - Discharge patient to home. - Resume previous diet. - Continue present medications. - Await pathology results. Procedure Code(s): --- Professional --- 38734, Esophagogastroduodenoscopy, flexible, transoral; with removal of tumor(s), polyp(s), or other lesion(s) by snare technique 13211, 59,51, Esophagogastroduodenoscopy, flexible, transoral; with biopsy, single or multiple CPT copyright 2021 [employer]. All rights reserved. The codes documented in this report are preliminary and upon supervisor polishing review may be revised to meet current compliance requirements. Andi Crane DO 10/14/2024 8:03:56 AM This report has been signed electronically. Number of Addenda: 0 Note Initiated On: 10/14/2024 7:41 AM
--- NOTE | 2024-10-14 08:07 | PCM.POST.ANE ---
Anesthesia: Postop Eval I Current Vital Signs Temperature: 97.3 F Pulse Rate: 73 Blood Pressure: 112/62 Respiratory Rate: 16 Pulse Ox: 96 Oxygen Delivery Method: Room Air Assessment Airway patent: Yes Spontaneous unlabored respirations: Yes Mental status: Asleep nausea: No Vomiting: No Anesthesia Complication: No Fluid Hydration Crystalloid volume administer (ml): 30 Total IV fluid infused: 30 Progress Note Anesthesia document: Postop Eval 1 completed: Yes
[2024-10-14 11:14] LABS: Bedside Glucose 182 mg/dL (74-106)
== END 2024-10-14 08:39 | disposition home or self-care (01) ==
LOC: EN 06:28 → AC 06:29
PROVIDERS: PCP Internal Medicine; Referring Provider Internal Medicine; Visit Provider Internal Medicine Gastroenterology
PROC: 0DJ08ZZ Inspection of Upper Intestinal Tract, Via Natural or Artificial Opening Endoscopic (ICD-10-PCS; CPT 43235; principal; 2024-10-14 07:25)
DX: D21.4 Benign neoplasm of connective and other soft tissue of abdomen (principal); I11.0 Hypertensive heart disease with heart failure; I50.9 Heart failure, unspecified; I42.9 Cardiomyopathy, unspecified; E11.9 Type 2 diabetes mellitus without complications; K29.50 Unspecified chronic gastritis without bleeding; E78.5 Hyperlipidemia, unspecified; K58.9 Irritable bowel syndrome, unspecified; R74.8 Abnormal levels of other serum enzymes; H90.5 Unspecified sensorineural hearing loss; M19.90 Unspecified osteoarthritis, unspecified site; G47.30 Sleep apnea, unspecified; Z90.49 Acquired absence of other specified parts of digestive tract; Z87.19 Personal history of other diseases of the digestive system; Z86.19 Personal history of other infectious and parasitic diseases; Z79.84 Long term (current) use of oral hypoglycemic drugs; Z85.42 Personal history of malignant neoplasm of other parts of uterus; Z86.0100 Personal history of colon polyps, unspecified; Z79.899 Other long term (current) drug therapy; Z87.891 Personal history of nicotine dependence; Z95.810 Presence of automatic (implantable) cardiac defibrillator
CPT/HCPCS: 43251; 43239; 82962; 88305; 88341; 88342; A4216; J2405

== ENCOUNTER → 2024-10-19 | Outpatient (CLI) | payer MEDICARE, OTHER, SELFPAY ==
--- NOTE | 2024-10-19 10:00 | PET_ITS ---
EXAMINATION: [address] ? INDICATIONS: 74-year-old female with a history of neuroendocrine neoplasm, presenting for restaging examination. ? COMPARISON EXAMINATION: ? TECHNIQUE: Following the intravenous administration of 5.21 mCi of GA 68 DOTATATE via the right antecubital fossa, multiplanar image acquisitions of the head, neck, chest, abdomen and pelvis to the level of the midthigh were obtained. High resolution thin slices (1.25 mm) were acquired for reconstruction with isotropic voxel resolution in multiple orthogonal planes. ? THE KRENNING SCORING SYSTEM: 0-No Uptake; 1-Very low radiopharmaceutical concentration; 2? to liver; 3-> liver; 4->spleen. (Misty et al., [place] Journal of Gastroenterology, Hepatology 31:S219 1998). ? SUV Reference values: Liver: 8.7? Spleen: 26.4 ? HEIGHT:?? 62 inches WEIGHT:?? 165 pounds ? FINDINGS: ? HEAD/NECK: Symmetric physiologic tracer uptake is noted in the right and left thyroid colloid, bilateral submandibular and parotid glands. There is visualization of the hypothalamus and midline skull base. There is no evidence of abnormal increased tracer uptake within the context of the cranial vault. ? Physiologic uptake is identified in the midline skull base consistent with visualization of the pineal gland. ? CHEST:? There is no quantitative scintigraphic evidence of abnormal increased glucose metabolism within the context of the bilateral hemithorax pulmonary parenchyma, right and left hemithorax at the pleural interface, mediastinal structures, and left-right thoracic perihilum. ? CT of the chest demonstrates the following anatomic characteristics: Atherosclerotic calcification is defined in the thoracic aorta without evidence of dilatation, aneurysm formation. Coronary artery calcification is observed. Ventricular pacemaker placement is defined. Bilateral axillary soft tissue densities are ametabolic. Scattered mediastinal soft tissue demonstrates no evidence of increased tracer uptake. There are no parenchymal densities-nodules defined in the right and left hemithorax with quantitatively significant increased radiopharmaceutical concentration. ? ABDOMEN/PELVIS: Physiologic tracer uptake is noted in the hepatic and splenic parenchyma, bilateral renal units, urinary bladder, and visualized intestinal tract, the right and left adrenal glands. ? CT of the abdomen and pelvis is remarkable for the following: The gallbladder is surgically absent. Calcified phlebolith formation is noted in the bilateral lower hemipelvis.? ? SKELETAL:? Degenerative changes defined in the cervical, thoracic and lumbar spine. ? PET/PET/CT Tumor Base -Thigh Init IMPRESSION: NEGATIVE EXAMINATION. There is no definitive quantitative scintigraphic evidence of recurrent-viable neoplasm. Electronic Signature Leon Dias D.O. Accurate Quantification of SUVs and standardized KRENNING scores for this report are calculated using the exclusive [employer], ([place].S. Patent No. [phone] [place] patent [phone] ). Standardization and correction of the FDG SUV metric exclusively available with [employer] intellectual property, allow for vendor non-specific objective quantitative sequential FDG PET-CT comparison and otherwise unobtainable optimization of the sensitivity and specificity of the examination. https://[employer] Electronically Signed: Leon Dias DO at 23:03 EST ,
== END | disposition home or self-care (01) ==
LOC: ONC 09:33
PROVIDERS: PCP Internal Medicine; Referring Provider Internal Medicine Gastroenterology; Visit Provider Internal Medicine Gastroenterology
DX: R77.9 Abnormality of plasma protein, unspecified (principal)
CPT/HCPCS: 78815; A9587

== ENCOUNTER → 2024-11-11 | Outpatient (CLI) | payer MEDICARE, OTHER, SELFPAY ==
[2024-11-22 11:07] LABS: Dopamine, 24Ur 267 ug/24 hr (0-510); Dopamine, Pl 53 pg/mL (0-48); Dopamine, UR 115 ug/L (Undefined); Epinephrine, 24Ur < 7 ug/24 hr (0-20); Epinephrine, Pl 36 pg/mL (0-62); Epinephrine, Ur < 3 ug/L (Undefined); Norepinephrine, 24Ur 65 ug/24 hr (0-135); Norepinephrine, Pl 1464 pg/mL (0-874); Norepinephrine, Ur 28 ug/L (Undefined)
== END | disposition home or self-care (01) ==
LOC: LABSPEC 07:26
PROVIDERS: PCP Internal Medicine; Referring Provider Student in an Organized Health Care Education/Training Program; Visit Provider Student in an Organized Health Care Education/Training Program
DX: K31.89 Other diseases of stomach and duodenum (principal)
CPT/HCPCS: 36415; 81050; 82384

== ENCOUNTER → 2025-02-18 | Outpatient (CLI) | payer MEDICARE, OTHER, SELFPAY ==
--- NOTE | 2025-02-18 11:47 | RAD_ITS ---
PROCEDURE: THORACIC SPINE 3 VIEWS 02/18/2025 REASON FOR EXAM: SPINE PAIN TECHNIQUE: Three views of the thoracic spine COMPARISON: None FINDINGS: See impression RAD/Thoracic Spine 3 Views IMPRESSION: Vertebral body heights are within normal limits. Mild/moderate thoracic dextro scoliosis. Mild multilevel degenerative changes. Left cardiac pacer/AICD. Lungs are clear. Reading Location: LOW
--- NOTE | 2025-02-18 11:47 | RAD_ITS ---
EXAM: XR Chest, 2 Views CLINICAL INDICATION: PAIN TECHNIQUE: Frontal and lateral views of the chest. COMPARISON: No relevant prior studies available. FINDINGS: LUNGS AND PLEURAL SPACES: See below. HEART: Cardiomegaly with mild congestion. MEDIASTINUM: Unremarkable. Normal mediastinal contour. BONES/JOINTS: Unremarkable. No acute fracture. TUBES, LINES AND DEVICES: Left-sided cardiac pacemaker. RAD/Chest PA and Lateral IMPRESSION: Cardiomegaly with mild congestion. Reading Location: [facility]
--- NOTE | 2025-02-18 11:49 | RAD_ITS ---
EXAM: XR Right Ribs, 2 Views CLINICAL INDICATION: PAIN TECHNIQUE: Frontal and oblique views of the right ribs. COMPARISON: No relevant prior studies available. FINDINGS: LUNGS AND PLEURAL SPACES: Unremarkable as visualized. No consolidation. No pneumothorax. BONES/JOINTS: Unremarkable. No displaced rib fractures. RAD/Ribs Unil 2V No CXR IMPRESSION: No displaced rib fractures. Reading Location[facility]
== END | disposition home or self-care (01) ==
LOC: RAD 11:44
PROVIDERS: PCP Internal Medicine; Referring Provider Clinical Nurse Specialist Adult Health; Visit Provider Clinical Nurse Specialist Adult Health
DX: R07.81 Pleurodynia (principal); M54.6 Pain in thoracic spine
CPT/HCPCS: 71046; 71100; 72072